=== PATIENT | female | born 1955 | race Caucasian/White ===

== ENCOUNTER 2016-05-01 13:22 | Outpatient (CLI) | payer OTHER ==
[~2016-05-01 13:22] MED LIST: /ESCI20TA PO; /MESA40TAB PO; ENTO3CAP5 PO; GEMF600T PO; HYDR7.5T30 PO; NEXI40GR PO; PRED20TA PO; SILV1CRE EX; VITA10002 PO; [UNRECOGNIZED DRUG - CODE] IM
[2016-05-01] MEDS ORDERED: diphenhydrAMINE 25 MG CAP PO ONE (13:45)
[2016-05-01] MEDS ORDERED: ACETAMINOPHEN TAB 650MG DOSE (2X325MG) PO ONE (13:45)
[2016-05-01] MEDS ORDERED: VEDOLIZUMAB 300 MG in NS 250 ML IV ONE (14:00)
== END 2016-05-01 15:15 | disposition home or self-care (01) ==
LOC: M INFU 13:22
PROVIDERS: ATTEND Internal Medicine Gastroenterology
DX: K50.80 Crohn's disease of both small and large intestine without complications (principal); Z88.8 Allergy status to other drugs, medicaments and biological substances; Z79.899 Other long term (current) drug therapy; Z79.891 Long term (current) use of opiate analgesic; Z79.52 Long term (current) use of systemic steroids
CPT/HCPCS: 96413; J3380

== ENCOUNTER 2016-06-06 11:20 | Inpatient (IN) | payer OTHER ==
[~2016-06-06] VITALS: Ht 162.6 cm; Wt 60.9 kg
[2016-06-06] MEDS ORDERED: ACETAMINOPHEN TAB 650MG DOSE (2X325MG) PO ONE (12:00)
--- NOTE | 2016-06-06 12:40 | REP ---
Chest one-view HISTORY: Sepsis Comparison: 01/19/2011 The lungs are clear. The heart is normal in size. The pulmonary vasculature is normal in appearance. Impression: No acute disease. Signed by Troy Valencia MD 06/06/2016 12:32 P
[2016-06-06 13:09] LABS: INR 1.11
[2016-06-06] MEDS ORDERED: METF500T PO (13:24)
[2016-06-06] MEDS ORDERED: SERT25TA PO (13:24)
[2016-06-06] MEDS ORDERED: OMEP40CA2 PO (13:24)
[2016-06-06] MEDS ORDERED: DRIS50002 PO (13:24)
[2016-06-06] MEDS ORDERED: ONDA1TAB15 PO (13:24)
[2016-06-06] MEDS ORDERED: FERR325T3 PO (13:24)
[2016-06-06 13:28] LABS: BASO % 0.1 % (0.0-1.0); EOS # 0.1 K/mm3 (0.0-0.50); EOS % 0.6 % (0.0-3.0); LARGE UNSTAINED CELL % 0.3 % (0.0-4.0); LYMPH # 0.2 K/mm3 (1.5-4.5); LYMPH % 1.6 % (24.0-44.0); MEAN CORPUSCULAR HEMOGLOBIN 34.7 pg (27.0-33.0); MEAN CORPUSCULAR HGB CONC 33.4 g/dl (32.0-36.5); MONO # 0.3 K/mm3 (0.0-0.8); MONO % 2.6 % (0.0-5.0); NEUTROPHILS # 11.9 K/mm3 (1.8-7.7); NEUTROPHILS % 94.8 % (36.0-66.0); PLATELET COUNT, AUTOMATED 474 k/mm3 (150-450); RED CELL DISTRIBUTION WIDTH 13.9 % (11.5-14.5); WHITE BLOOD COUNT 12.6 K/mm3 (4.0-10.0)
[2016-06-06 13:35] LABS: ALBUMIN 1.9 GM/DL (3.2-5.2); ALBUMIN/GLOBULIN RATIO 0.46 (1.00-1.93); ALKALINE PHOSPHATASE 165 U/L (45-117); ALT/SGPT 17 U/L (12-78); AMYLASE 22 U/L (25-115); ANION GAP 8 MEQ/L (8-16); AST/SGOT 18 U/L (15-37); BILIRUBIN,DIRECT 0.2 MG/DL (0.0-0.2); BILIRUBIN,TOTAL 0.7 MG/DL (0.2-1.0); BLOOD UREA NITROGEN 7 MG/DL (7-18); CALCIUM LEVEL 8.3 MG/DL (8.8-10.2); CARBON DIOXIDE LEVEL 29 MEQ/L (21-32); CHLORIDE LEVEL 99 MEQ/L (98-107); CREATININE FOR GFR 0.74 MG/DL (0.55-1.02); GLOMERULAR FILTRATION RATE > 60.0 (>45); GLUCOSE, FASTING 146 MG/DL (80-110); SODIUM LEVEL 136 MEQ/L (136-145)
[2016-06-06 13:44] LABS: POTASSIUM SERUM 2.9 MEQ/L (3.5-5.1)
--- NOTE | 2016-06-06 13:44 | REP ---
RIGHT KNEE SERIES: Four views of the right knee are performed. There is no fracture or dislocation. There is mild medial joint space narrowing. There is mild spurring of the femoral condyles. There is mild spurring of the superior pole of the patella with narrowing of the patellofemoral joint. I do not see a significant joint effusion. IMPRESSION: Degenerative changes without other significant finding. Signed by David Johnson MD 06/06/2016 05:06 P
[2016-06-06] MEDS ORDERED: CEFEPIME HCL 2 GM in D5W MINI-BAG PLUS 50 ML IV ONE (13:45)
[2016-06-06] MEDS ORDERED: POTASSIUM CHLORIDE 10 MEQ SR TABLET PO ONE (13:45)
[2016-06-06] MEDS ORDERED: ONDANSETRON 4MG/2ML VIAL (J2405) IV ONE ×2 (14:00→16:00)
[2016-06-06] MEDS ORDERED: CEFEPIME HCL 1 GM INJ (MAXIPIME) (J0692) As Ordered ONE ×2 (14:08→14:09)
[2016-06-06] MEDS ORDERED: ISOVUE-370 76% 100ML VIAL (Q9967) As Ordered ONE (14:20)
--- NOTE | 2016-06-06 15:56 | REP ---
CT ABDOMEN: HISTORY: Abdominal pain and pyrexia. History of Crohn's disease. COMPARISON: 11/24/2008, which is the only prior. CONTRAST UTILIZED: 100 mL 370. There are chronic changes in the lung bases, status quo. There are no pleural or pericardial effusions. There is an air fluid level in the esophagus. A round density is also seen at the gastroesophageal junction likely some ingested material. The gallbladder is markedly enlarged and there is cholelithiasis. Cholelithiasis was present on the prior examination, however, it has increased. There is no evidence of abnormal gallbladder wall thickening or armida evidence of pericholecystic edema. The liver and spleen are essentially unchanged. The pancreas, adrenal glands and kidneys are unchanged. The abdominal aorta and periaortic regions were unchanged. There is a segment of transverse colon which has abnormally thickened de león, is narrow and is seen in association with fatty infiltration on both mesenteric and antimesenteric sides. This was seen on the prior exam and the appearance of this is essentially stable. There is no armida evidence of intestinal obstruction. There is no evidence of free fluid or free air in the abdomen. The abdominal aorta and periaortic regions are essentially unchanged from the prior exam. CT PELVIS: There is perirectal and perisigmoidal fatty infiltration with evidence of abnormal thickening of the de león of the rectum and rectosigmoid region. This represents a change from the prior exam. There is no definite evidence of free fluid or free air in the pelvis. There is no evidence of a pelvic mass or adenopathy. There is no significant change in the appearance of the osseous structures. IMPRESSION: 1. Persistent loop of bowel in the abdomen with thickened de león and mild fatty infiltration. The patient does have a history of previous bowel surgery and this could be a point of anastomosis rather than acute disease. I will reiterate it has a similar appearance to the prior examination. 2. Diffuse findings in the pelvis involving the rectum and rectosigmoid region as described above consistent with acute inflammation. This needs to be correlated clinically without appropriate followup. 3. Hydropic gallbladder with cholelithiasis as described above. 4. Esophageal air fluid level which needs to be correlated clinically as described above. 5. Other findings as described above. Signed by Tristan Cevallos DO 06/06/2016 04:19 P
[2016-06-06] MEDS ORDERED: NS 1,000 ML IV ONE (16:00)
--- NOTE | 2016-06-06 16:16 | REP ---
CT ANGIO CHEST: HISTORY: Dyspnea. Possible pulmonary embolus. COMPARISON: None. CONTRAST UTILIZED: 100 mL Isovue-370. There is excellent visualization of the pulmonary arterial vasculature seen only in one right mid lung zone pulmonary arterial. There is a linear area of decreased density likely artifactual. No definite abnormal focal areas of decreased density are present that would be considered consistent with pulmonary emboli. There are no pleural or pericardial effusions. There is no mediastinal or hilar adenopathy. Evaluation of the lung navarro show a few patchy and curvilinear opacities in the lung bases consistent with chronic lung base changes which appear unchanged from the prior lung base images obtained during abdominal and pelvic CT scanning 11/24/2008. IMPRESSION: 1. No evidence of a pulmonary embolus. 2. Chronic lung base changes. 3. No evidence of an aortic abnormality. 4. Other findings as described above. Signed by Tristan Cevallos DO 06/06/2016 04:20 P
--- NOTE | 2016-06-06 17:01 | REP ---
GALLBLADDER ULTRASOUND: 06/06/2016. Comparison: CT abdomen and pelvis 06/06/2016. Clinical history: Right upper quadrant abdominal pain, distended gallbladder with calcified stones. Findings: Sonographic evaluation of the right upper quadrant shows the liver with fatty infiltration and dilatation. The gallbladder is distended with hydrops of the gallbladder which is at least 13 cm long. Wall is thickened up to 3.4 mm. There is some sludge and echogenic stones in the dependent gallbladder. Both of these are mobile. I do not see pericholecystic fluid. Despite the distension and wall thickening, there is no definite sonographic Benjamin's sign. Common duct is not dilated at 11.5 mm. I do not see a definite stone on the visualized portion of this duct on ultrasound nor was there any visible calcified stone by CT earlier this date in the gallbladder or duct. The pancreas is limited in evaluation due to gas shadowing. The right kidney is 10.8 x 5 x 3.8 cm without hydronephrosis or stone. That portion of pancreatic head did not show a dilated common bile duct or other significant finding. Impression: 1. Hydrops of the gallbladder which is 13 cm long with thickened wall up to 3.4 mm with stones and sludge (which are both mobile), but without a sonographic Benjamin's sign or pericholecystic fluid. Although the duct is enlarged, there is no dilatation of the intrapancreatic ducts. Fatty liver change noted. 2. Common duct 11.5 mm, but no visible filling defect in that portion of the duct seen 3. There is no generalized ascites. The pancreas shows limited portion due to gas shadowing without finding. Right kidney is unremarkable. Signed by Magdaleno Rangel MD 06/07/2016 09:13 A
--- NOTE | 2016-06-06 17:03 | REP ---
CT HEAD WITHOUT CONTRAST: HISTORY: Fall. Areas of decreased attenuation are present in the frontal lobes. There is dilatation of the overlying cortical sulci. This represents encephalomalacia. Areas of decreased attenuation are present in the periventricular white matter. This represents small vessel ischemic disease. There is no intraparenchymal hemorrhage, mass or midline shift. The ventricular system and cortical sulci are dilated consistent with mild volume loss. There is no extracerebral collection. There is no fracture. The visualized sinuses are clear. IMPRESSION: 1. Bilateral frontal lobe encephalomalacia. 2. Small vessel ischemic disease. 3. Mild volume loss. Signed by Troy Valencia MD 06/06/2016 05:06 P
[2016-06-06] MEDS ORDERED: ONDANSETRON 4MG/2ML VIAL (J2405) IV PRN (18:30)
[2016-06-06] MEDS ORDERED: ACETAMINOPHEN TAB 650MG DOSE (2X325MG) PO PRN (18:30)
--- NOTE | 2016-06-06 19:20 | HPE ---
DATE OF ADMISSION: 06/06/2015 PRIMARY CARE PROVIDER: Ms. Sousa is a patient of Zay Morin and Dr. Lemus. CHIEF COMPLAINT: Apparently knee pain, although during my evaluation, she is unable to tell me why she came to the emergency department. HISTORY OF PRESENT ILLNESS: The patient apparently suffered a fall at home, experienced right-sided knee pain. She lives alone. She has a history of traumatic brain injury so she is a relatively poor historian. Was found to be febrile in the emergency department and she was unaware that she was febrile. She describes no cough or blood pressure. She is experiencing abdominal pain and has been having some loose stools, although she says she always has loose stools. Follows with Dr. Lemus for Crohn's disease, although she is unsure what medication she takes for Crohn's, although she says she uses [facility]. PAST MEDICAL HISTORY: Is obtained from the medical record for bowel resection and hysterectomy. Past medical history is notable for Crohn's. Medication list would suggest that she has diabetes and perhaps gastroesophageal reflux disease (GERD). SOCIAL HISTORY: Previous records indicate she is a nonsmoker. FAMILY HISTORY: Notable for a brother with Crohn's and a father with ulcerative colitis. ALLERGIES: She has listed allergies to INFLIXIMAB, LACTOSE, MORPHINE, NIZATIDINE. MEDICATIONS AT HOME: Notable for: - metformin 500 mg twice a day with meals - Zofran as needed for nausea - vitamin D 50,000 units weekly - ferrous sulfate 325 mg twice a day - omeprazole 40 mg daily - sertraline 25 mg daily REVIEW OF SYSTEMS: Is not meaningfully obtainable in this patient. PHYSICAL EXAMINATION: VITAL SIGNS: Temperature upon arrival was 103.9, most recently 98.5, pulse 100, blood pressure 137/80, 100% on room air, respiratory rate 18. GENERAL: She is awake, appears somewhat uncomfortable but appropriately interactive and following commands. Knows she is in the hospital. Does not know particularly why she is here. HEENT: Head is normocephalic. Sinuses are nontender. Pupils equal, round, and reactive. Anicteric. Nasal septum is midline. Mucous membranes are moist. NECK: Supple. LUNGS: Breathing is symmetrical, somewhat diminished throughout. I to E ratio is 1:3. HEART: Distant sounding normal S1, S2. Radial pulses are 2+. Capillary refill is less than two seconds. ABDOMEN: Flat with hypoactive bowel sounds, with right upper and lower quadrant tenderness without rebound or guarding. No fluid wave. EXTREMITIES: No lower extremity edema. She does have some cheilosis at the margins of her lips. Right knee is nontender, nonerythematous. There is no fluid. There is no warmth. LABORATORY DATA: White cell count 12.6, hemoglobin 11.7, platelets 474. INR is 1.11. Potassium is 2.9. Creatinine 0.74. Lactic acid was initially 3, repeat at 1.5. Calcium 8.3. Alkaline phosphatase 165. C-reactive protein 2.7. Total protein 6, albumin 1.9, amylase 22. MICROBIOLOGY: UA is remarkably unremarkable. Blood culture pending. Urine culture pending. Influenza swab is negative. IMAGING: Head CT showed bilateral frontal lobe encephalomalacia. Small vessel ischemic disease. Mild volume loss. Gallbladder ultrasound shows common bile duct at 11.5 mm. Hydrops of the gallbladder 13 cm long with thickened wall without fluid around the gallbladder. CT abdomen shows persistent loop of bowel in the abdomen with thickened wall and mild fatty infiltration. Diffuse findings in the pelvis including the rectum and rectosigmoid area consistent with acute inflammation, hydropic gallbladder with cholelithiasis. A round density at the GE junction. Knee x-ray does not show any evidence of fracture. CT chest shows no evidence of pulmonary embolism or infiltrate. ASSESSMENT: This is a 60-year-old with Crohn's disease who presents with fever and abdominal pain. The patient will require a two-midnight hospital stay for further workup. PLAN: 1. Gastrointestinal (GI). The patient has been started on empiric antibiotics. Does not have an acutely surgical abdomen. We will monitor clinically. I have asked for a GI consult. I have elected not to start steroids, but will defer to Dr. Lemus for further care. I have also ordered a GI panel for the possibility of infectious diarrhea, which has been quite prominent in the community. 2. The patient may have a history of diabetes. We will follow fingersticks, monitor clinically. Ask for old records from Zay Morin's office. 3. The patient has anemia and leukocytosis. This is mostly likely related to acute illness. We will monitor with laboratories in the morning. 4. The patient has hypokalemia, which will be repleted. We will also check a magnesium level. 5. The patient has resolved lactic acidosis. 6. Deep venous thrombosis (DVT) prophylaxis has been ordered. 7. The patient has a history of traumatic brain injury and is a relatively poor historian. Old records will be important in her care, as well as consulting physician who has known her for many years. 8. The patient will be signed out to Dr. Yadav in the morning.
[2016-06-06 21:18] VITALS: BP 136/74
[2016-06-06] MEDS: CIPROFLOXACIN 400 MG in APPROPRIATE DILUENT 1 EA IV SCH (21:45)
[2016-06-06] MEDS: NS 1,000 ML IV SCH (21:45)
[2016-06-06] MEDS: FERROUS SULFATE 325MG TAB PO SCH (21:46)
[2016-06-06] MEDS: HEPARIN SOD (PORCINE) 5000 UNITS/ML VIAL SC SCH (21:46)
[2016-06-06] MEDS: metroNIDAZOLE 500 MG in APPROPRIATE DILUENT 1 EA IV SCH (22:49)
[2016-06-06 22:58] LABS: ALBUMIN 1.7 GM/DL (3.2-5.2); ALBUMIN/GLOBULIN RATIO 0.45 (1.00-1.93); ALKALINE PHOSPHATASE 144 U/L (45-117); ALT/SGPT 18 U/L (12-78); ANION GAP 8 MEQ/L (8-16); AST/SGOT 23 U/L (15-37); BILIRUBIN,TOTAL 0.8 MG/DL (0.2-1.0); BLOOD UREA NITROGEN 7 MG/DL (7-18); CALCIUM LEVEL 7.7 MG/DL (8.8-10.2); CARBON DIOXIDE LEVEL 28 MEQ/L (21-32); CHLORIDE LEVEL 101 MEQ/L (98-107); CREATININE FOR GFR 0.66 MG/DL (0.55-1.02); GLOMERULAR FILTRATION RATE > 60.0 (>45); GLUCOSE, FASTING 147 MG/DL (80-110); MAGNESIUM LEVEL 1.4 MG/DL (1.8-2.4); POTASSIUM SERUM 3.6 MEQ/L (3.5-5.1); SODIUM LEVEL 137 MEQ/L (136-145); TOTAL PROTEIN 5.5 GM/DL (6.4-8.2)
[2016-06-06] MEDS ORDERED: MAG SULF 1GM/100ML (MAG RUN) 1 GM in APPROPRIATE DILUENT 1 EA IV ONE (23:45)
[2016-06-07] VITALS: BP 101/58
[2016-06-07 04:00] VITALS: BP 108/52
[2016-06-07] MEDS: metroNIDAZOLE 500 MG in APPROPRIATE DILUENT 1 EA IV SCH ×3 (05:44→21:38)
[2016-06-07 05:50] LABS: BASO % 0.2 % (0.0-1.0); EOS % 0.2 % (0.0-3.0); LARGE UNSTAINED CELL # 0.1 K/mm3 (0.0-0.4); LARGE UNSTAINED CELL % 1.6 % (0.0-4.0); LYMPH # 0.5 K/mm3 (1.5-4.5); LYMPH % 7.9 % (24.0-44.0); MEAN CORPUSCULAR HEMOGLOBIN 34.5 pg (27.0-33.0); MEAN CORPUSCULAR VOLUME 104.5 fl (80.0-96.0); MONO # 0.4 K/mm3 (0.0-0.8); MONO % 5.5 % (0.0-5.0); NEUTROPHILS # 5.4 K/mm3 (1.8-7.7); NEUTROPHILS % 84.6 % (36.0-66.0); PLATELET COUNT, AUTOMATED 448 k/mm3 (150-450); RED CELL DISTRIBUTION WIDTH 13.9 % (11.5-14.5); WHITE BLOOD COUNT 6.3 K/mm3 (4.0-10.0)
[2016-06-07 06:06] LABS: ALBUMIN 1.6 GM/DL (3.2-5.2); ALBUMIN/GLOBULIN RATIO 0.41 (1.00-1.93); ALKALINE PHOSPHATASE 142 U/L (45-117); ALT/SGPT 18 U/L (12-78); ANION GAP 9 MEQ/L (8-16); AST/SGOT 29 U/L (15-37); BILIRUBIN,TOTAL 0.7 MG/DL (0.2-1.0); BLOOD UREA NITROGEN 7 MG/DL (7-18); CALCIUM LEVEL 7.7 MG/DL (8.8-10.2); CARBON DIOXIDE LEVEL 28 MEQ/L (21-32); CHLORIDE LEVEL 102 MEQ/L (98-107); CREATININE FOR GFR 0.71 MG/DL (0.55-1.02); GLOMERULAR FILTRATION RATE > 60.0 (>45); GLUCOSE, FASTING 102 MG/DL (80-110); MAGNESIUM LEVEL 2.2 MG/DL (1.8-2.4); POTASSIUM SERUM 3.2 MEQ/L (3.5-5.1); SODIUM LEVEL 139 MEQ/L (136-145); TOTAL PROTEIN 5.5 GM/DL (6.4-8.2)
[2016-06-07 08:00] VITALS: BP 104/61
[2016-06-07] MEDS: CIPROFLOXACIN 400 MG in APPROPRIATE DILUENT 1 EA IV SCH ×2 (08:14→20:09)
[2016-06-07] MEDS: OMEPRAZOLE 20 MG CAP PO SCH (08:14)
[2016-06-07] MEDS: FERROUS SULFATE 325MG TAB PO SCH ×2 (08:14→20:10)
[2016-06-07] MEDS: SERTRALINE HCL 25 MG TABLET PO SCH (08:14)
[2016-06-07] MEDS: HEPARIN SOD (PORCINE) 5000 UNITS/ML VIAL SC SCH ×2 (08:14→20:10)
[2016-06-07] MEDS ORDERED: POTASSIUM CHLORIDE 10 MEQ SR TABLET PO ONE (09:45)
--- NOTE | 2016-06-07 10:33 | ECGEPIP ---
Stationary ECG Study [facility] - ED Test Date: 2016-06-06 Pat Name: EDEN HAYNES Department: Room: - Gender: F [employer]: nallely : 1955 Requested By: Octavia Carlton Order Number: [id number] Reading MD: Nick Gutiérrez Measurements Intervals [place] Rate: 119 P: 26 ND: 100 QRS: 10 QRSD: 90 T: 76 QT: 285 QTc: 402 Interpretive Statements SINUS TACHYCARDIA WITH SHORT ND INTERVAL POSSIBLE LAE NONSPECIFIC ST & T-WAVE ABNORMALITY NO PRIORS Electronically Signed On 06-07-2016 10:32:57 EST by Nick Gutirérez
[2016-06-07] MEDS: NS 1,000 ML IV SCH (11:00)
[2016-06-07] MEDS: methylPREDNISolone INJ 40 MG/1 ML VIAL (J2920) IV SCH ×2 (13:44→21:38)
--- NOTE | 2016-06-07 15:09 | IPN ---
DATE: 06/07/2016 60-year-old female seen at bedside. No overnight issues reported. Admitted last evening for abdominal discomfort and loose stool. Dr. Lemus has seen the patient this afternoon and felt that this was an exacerbation of her Crohn's disease, which I did discuss with her son. We will start medications per Dr. Lemus's recommendations. OBJECTIVE: Temperature is 96.7, pulse 110, respiratory rate 18, blood pressure 104/61, SpO2 is 96% on room air. GENERAL: The patient appears to be in no acute distress. Is alert, oriented. HEENT: Unremarkable. LUNGS: Clear. HEART: Regular rhythm. ABDOMEN: Soft with vague tenderness in the right to mid abdomen. EXTREMITIES: No edema. No calf tenderness. LABORATORY DATA: White count is 6.3, down from 12.6, hemoglobin is 11.5, platelets are 448,000. Sodium 139, potassium 3.2, which we will supplement. Chloride 102, bicarbonate 28, anion gap 9, BUN 7, creatinine 0.71, glucose 102, hemoglobin A1c 5.1, magnesium 2.2, AST 29, ALT 18, alkaline phosphatase 142, lipase 45, GI panel was negative. Blood cultures negative. Influenza A and B are negative. ASSESSMENT AND PLAN: 1. Abdominal pain with Crohn's exacerbation. Continue on Cipro, Flagyl, Asacol and Solu-Medrol per Dr. Lemus's recommendations. She likely will need outpatient followup and may need to be considered for restart of immunosuppressive therapy for Crohn's. 2. History of diabetes. Continue fingersticks before food and nightly. Sliding scale coverage. Consistent carbohydrate diet. 3. Anemia with leukocytosis likely related to acute illnesses. This does appear to be improving. We will continue to follow. 4. Hypokalemia. We will replete. 5. Resolved lactic acidosis. 6. Deep vein thrombosis (DVT) prophylaxis is on board. 7. History of traumatic brain injury, relatively poor historian. Did have an opportunity to discuss the case with the patient's son Denver by phone and he is agreeable with current treatment plan. DISPOSITION: Anticipate the patient to be here greater than two midnights.
[2016-06-07 15:55] VITALS: BP 124/67
[2016-06-07] MEDS: MESALAMINE 400 MG CAPSULE DELAYED RELEASE (DELZICOL) PO SCH ×2 (18:07→20:09)
[2016-06-07 22:00] VITALS: BP 115/58
[2016-06-08] MEDS: methylPREDNISolone INJ 40 MG/1 ML VIAL (J2920) IV SCH ×3 (05:20→14:49)
[2016-06-08] MEDS: metroNIDAZOLE 500 MG in APPROPRIATE DILUENT 1 EA IV SCH ×3 (05:21→14:49)
[2016-06-08 06:00] VITALS: BP 129/67
[2016-06-08 06:48] LABS: BASO % 0.1 % (0.0-1.0); EOS % 0.5 % (0.0-3.0); LARGE UNSTAINED CELL # 0.1 K/mm3 (0.0-0.4); LARGE UNSTAINED CELL % 2.4 % (0.0-4.0); LYMPH # 0.7 K/mm3 (1.5-4.5); LYMPH % 15.4 % (24.0-44.0); MEAN CORPUSCULAR HEMOGLOBIN 34.4 pg (27.0-33.0); MEAN CORPUSCULAR HGB CONC 33.3 g/dl (32.0-36.5); MEAN CORPUSCULAR VOLUME 103.1 fl (80.0-96.0); MONO # 0.3 K/mm3 (0.0-0.8); MONO % 6.8 % (0.0-5.0); NEUTROPHILS # 3.1 K/mm3 (1.8-7.7); NEUTROPHILS % 74.8 % (36.0-66.0); PLATELET COUNT, AUTOMATED 391 k/mm3 (150-450); RED CELL DISTRIBUTION WIDTH 13.5 % (11.5-14.5); WHITE BLOOD COUNT 4.2 K/mm3 (4.0-10.0)
[2016-06-08 07:00] LABS: ALBUMIN 1.6 GM/DL (3.2-5.2); ALBUMIN/GLOBULIN RATIO 0.43 (1.00-1.93); ALKALINE PHOSPHATASE 121 U/L (45-117); ALT/SGPT 22 U/L (12-78); ANION GAP 8 MEQ/L (8-16); AST/SGOT 32 U/L (15-37); BILIRUBIN,TOTAL 0.4 MG/DL (0.2-1.0); BLOOD UREA NITROGEN 6 MG/DL (7-18); CALCIUM LEVEL 7.6 MG/DL (8.8-10.2); CARBON DIOXIDE LEVEL 27 MEQ/L (21-32); CHLORIDE LEVEL 106 MEQ/L (98-107); CREATININE FOR GFR 0.53 MG/DL (0.55-1.02); GLOMERULAR FILTRATION RATE > 60.0 (>45); GLUCOSE, FASTING 131 MG/DL (80-110); MAGNESIUM LEVEL 2.1 MG/DL (1.8-2.4); POTASSIUM SERUM 3.2 MEQ/L (3.5-5.1); SODIUM LEVEL 141 MEQ/L (136-145); TOTAL PROTEIN 5.3 GM/DL (6.4-8.2)
[2016-06-08] MEDS: OMEPRAZOLE 20 MG CAP PO SCH (09:40)
[2016-06-08] MEDS: SERTRALINE HCL 25 MG TABLET PO SCH (09:40)
[2016-06-08] MEDS: CIPROFLOXACIN 400 MG in APPROPRIATE DILUENT 1 EA IV SCH (09:40)
[2016-06-08] MEDS: FERROUS SULFATE 325MG TAB PO SCH ×2 (09:41→21:18)
[2016-06-08] MEDS: MESALAMINE 400 MG CAPSULE DELAYED RELEASE (DELZICOL) PO SCH ×3 (09:41→21:18)
[2016-06-08] MEDS: HEPARIN SOD (PORCINE) 5000 UNITS/ML VIAL SC SCH ×2 (09:42→21:19)
[2016-06-08] MEDS ORDERED: POTASSIUM CHLORIDE 10 MEQ SR TABLET PO ONE (11:00)
[2016-06-08 11:32] LABS: FOLATE 12.3 NG/ML (>5.4)
[2016-06-08] MEDS: EUCERIN 120GM CREAM TOP SCH ×2 (11:53→21:18)
[2016-06-08 14:00] VITALS: BP 131/76
--- NOTE | 2016-06-08 14:03 | IPN ---
DATE: 06/08/2016 60-year-old female seen at bedside. No overnight issues reported. Resting comfortably. She denies fevers, chills, nausea or vomiting. She feels that her abdominal pain is much improved today. OBJECTIVE: Temperature 96.8, pulse 86, respiratory rate 18, blood pressure 129/67, SpO2 91% on room air. General: The patient appears to be in no acute distress. He is alert, oriented. HEENT: He does have some erythema around the lower folds of the mouth. Throat is clear. Lungs clear. Heart: Regular rate and rhythm. Abdomen: Soft. Extremities: No edema. No calf tenderness. LABS: White count 4.2, hemoglobin 10.9 and platelets are 391,000. Sodium 141, potassium 3.2, chloride 106, bicarbonate 27, anion gap 8, BUN 6, creatinine 0.53, glucose 131. Magnesium 2.1. Total bilirubin 0.4. AST 32. ALT 22. Alkaline phosphatase 121. Albumin 1.6. B12 level is 229. Folate is 2.3. Zinc level is pending at this time. ASSESSMENT AND PLAN: 1. Abdominal pain with Crohn's exacerbation. Continue on Cipro, Flagyl, Asacol, and Solu-Medrol per Dr. Lemus's recommendations. Will likely need outpatient followup and possibly restart of immunosuppressive therapy. 2. Rash on face. Likely from poor nutrition. 3. Vitamin B12 deficiency. Will check a zinc level on her as well and start on oral B12. 4. Diabetes. Continue consistent carbohydrate diet. Fingersticks before meals and at bedtime, sliding scale coverage. 5. Anemia with leukocytosis related to acute illness. Has been improving and back to normal. 6. Hypokalemia, will replete. 7. Resolved lactic acidosis. 8. Deep vein thrombosis (DVT) prophylaxis is on board. 9. History of traumatic brain injury. Stable. DISPOSITION: Anticipate discharge home tomorrow.
[2016-06-08] MEDS: metroNIDAZOLE (FLAGYL) 500 MG TAB PO SCH ×2 (14:56→21:18)
[2016-06-08] MEDS: CIPROFLOXACIN 500 MG TAB PO SCH (17:18)
[2016-06-08 20:15] VITALS: BP 124/74
[2016-06-09 05:05] VITALS: BP 121/69
[2016-06-09] MEDS: metroNIDAZOLE (FLAGYL) 500 MG TAB PO SCH (05:12)
[2016-06-09] MEDS: CIPROFLOXACIN 500 MG TAB PO SCH (05:12)
[2016-06-09 06:50] LABS: ALBUMIN 1.7 GM/DL (3.2-5.2); ALBUMIN/GLOBULIN RATIO 0.49 (1.00-1.93); ALKALINE PHOSPHATASE 150 U/L (45-117); ALT/SGPT 25 U/L (12-78); ANION GAP 6 MEQ/L (8-16); AST/SGOT 24 U/L (15-37); BILIRUBIN,TOTAL 0.4 MG/DL (0.2-1.0); BLOOD UREA NITROGEN 9 MG/DL (7-18); CALCIUM LEVEL 7.7 MG/DL (8.8-10.2); CARBON DIOXIDE LEVEL 28 MEQ/L (21-32); CHLORIDE LEVEL 108 MEQ/L (98-107); CREATININE FOR GFR 0.53 MG/DL (0.55-1.02); GLOMERULAR FILTRATION RATE > 60.0 (>45); GLUCOSE, FASTING 112 MG/DL (80-110); MAGNESIUM LEVEL 1.9 MG/DL (1.8-2.4); POTASSIUM SERUM 3.1 MEQ/L (3.5-5.1); SODIUM LEVEL 142 MEQ/L (136-145); TOTAL PROTEIN 5.2 GM/DL (6.4-8.2)
[2016-06-09 07:17] LABS: EOS % 1.3 % (0.0-3.0); LARGE UNSTAINED CELL # 0.2 K/mm3 (0.0-0.4); LARGE UNSTAINED CELL % 3.5 % (0.0-4.0); LYMPH # 0.9 K/mm3 (1.5-4.5); LYMPH % 21.1 % (24.0-44.0); MEAN CORPUSCULAR HGB CONC 32.6 g/dl (32.0-36.5); MEAN CORPUSCULAR VOLUME 104.2 fl (80.0-96.0); MONO # 0.3 K/mm3 (0.0-0.8); MONO % 6.3 % (0.0-5.0); NEUTROPHILS # 2.8 K/mm3 (1.8-7.7); NEUTROPHILS % 67.7 % (36.0-66.0); PLATELET COUNT, AUTOMATED 394 k/mm3 (150-450); RED CELL DISTRIBUTION WIDTH 13.3 % (11.5-14.5); WHITE BLOOD COUNT 4.2 K/mm3 (4.0-10.0)
[2016-06-09] MEDS ORDERED: POTASSIUM CHLORIDE 10 MEQ SR TABLET PO ONE (07:45)
[2016-06-09] MEDS ORDERED: FLAG500T PO (07:57)
[2016-06-09] MEDS ORDERED: DELZ400C PO (07:57)
[2016-06-09] MEDS ORDERED: CIPR500T89 PO (07:57)
[2016-06-09] MEDS ORDERED: POTA20TA4 PO (07:59)
[2016-06-09] MEDS: MESALAMINE 400 MG CAPSULE DELAYED RELEASE (DELZICOL) PO SCH (08:40)
[2016-06-09] MEDS: SERTRALINE HCL 25 MG TABLET PO SCH (08:40)
[2016-06-09] MEDS: OMEPRAZOLE 20 MG CAP PO SCH (08:40)
[2016-06-09] MEDS: HEPARIN SOD (PORCINE) 5000 UNITS/ML VIAL SC SCH (08:41)
[2016-06-09] MEDS: FERROUS SULFATE 325MG TAB PO SCH (08:41)
[2016-06-09] MEDS: EUCERIN 120GM CREAM TOP SCH (08:41)
[2016-06-09] MEDS ORDERED: predniSONE 20 MG TAB PO SCH (09:00)
--- NOTE | 2016-06-09 09:21 | DSES ---
DATE OF ADMISSION: 06/06/2016 DATE OF DISCHARGE: 06/09/2016 PRIMARY CARE PROVIDER: Zay Morin. CONSULTANTS: Dr. Lemus. PROCEDURES PERFORMED: None. COMPLICATIONS: None. ADMISSION/DISCHARGE DIAGNOSES: 1. Acute abdominal pain with exacerbation of inflammatory bowel/Crohn's disease. 2. Hypokalemia. 3. Diabetes. 4. Iron-deficiency. 5. Gastroesophageal reflux disease. 6. Depression. BRIEF HOSPITAL COURSE: Ms. Sousa is a pleasant, 60-year-old female who presented to the emergency department on 06/06/2015. She had initially complained of some knee pain when she came to the emergency department and then subsequently complained of having right sided abdominal pain which radiated to the epigastric and into her back. She had been having a lot of loose bowel movements, but no hematochezia or melena. On further workup in the emergency department, she did have a mild increasing leukocytosis with a white count 12.6. Urinalysis was unremarkable. Blood cultures remained negative. However, her CT of the abdomen and pelvis did show thickened wall, bowel loop and mild fatty infiltrate suggesting acute inflammation. She did have some noted cholelithiasis. Her x-ray of the knee did not demonstrate any fracture. Additionally, she had a CT angio of the chest which was negative for pulmonary embolism (PE), no infiltrate. She additionally had a head CT that did show frontal lobe encephalomalacia, small vessel ischemic disease and mild volume loss. She does have an underlying history of head trauma with traumatic brain injury which is longstanding. On additional labs, her lactic acid was initially 3 and repeat after a fluid bolus was 1.5. C-reactive protein 2.7, albumin 1.9 and amylase 22. She was admitted for IV fluids and started on IV Cipro and Flagyl. Dr. Lemus was consulted. He did feel that this was an exacerbation of her Crohn's disease. We did make some changes in her medications and she may need to resume immunomodulating medication in the near future, which we will defer to Dr. Lemus in followup as an outpatient. For further information regarding intake physical, labs, and diagnostics, please refer to the history and physical (H and P) by Dr. Claudio. PHYSICAL EXAMINATION: Today, temperature is 97, pulse 74, respiratory rate 18, blood pressure (BP) 121/69, and SPO2 is 95% on room air. General: The patient appears to be in no acute distress. Is alert, oriented. HEENT: Unremarkable. Lungs: Clear. Heart: Regular rate and rhythm. Abdomen: Soft. Extremities: No edema. No calf tenderness. LABS: White count is 4.2, hemoglobin 10.6 and platelets are 394,000. Sodium 142, potassium 3.1 - which we will supplement, chloride 108, bicarb 28, anion gap 6, BUN 9, creatinine 0.53, glucose 112, magnesium 1.9, total bilirubin 0.4, AST 24, ALT 25, alkaline phosphatase 150, CRP is 2.96, albumin 1.7. DISCHARGE CONDITION: Good. DISPOSITION: Discharge to home. DISCHARGE MEDICATIONS: - Cipro 500 mg twice a day for seven more days - mesalamine 800 mg three times a day - potassium chloride 20 mEq by mouth to be taken on a daily basis, she was given a 40 mg tab times one prior to discharge - ferrous sulfate 325 mg twice a day - metformin 500 mg twice a day - omeprazole 40 mg daily - Zofran 4 mg every 4 hours as needed nausea - Zoloft 25 mg daily - vitamin D 50,000 units weekly DISCHARGE INSTRUCTIONS: Discharge to home. Followup with Zay Morin in a week and followup with Dr. Lemus in 1-2 weeks. Activity as tolerated. Consistent carb diet. Encouraged to seek medical attention if her symptoms should worsen or progress. She voices understanding. The discharge took approximately 35 minutes. NILS
== END 2016-06-09 10:25 | disposition home or self-care (01) | DRG 387 ==
LOC: EDBD 11:20 → EDUNIT# 11:20 → M ED 11:43 → M ED INP 18:26 → M PCU 20:48 → M MSPAV 06-07 15:51
PROVIDERS: ADMIT Internal Medicine; ATTEND Hospitalist
DX: K50.90 Crohn's disease, unspecified, without complications (principal); E87.6 Hypokalemia; E11.9 Type 2 diabetes mellitus without complications; D72.829 Elevated white blood cell count, unspecified; D50.9 Iron deficiency anemia, unspecified; K80.20 Calculus of gallbladder without cholecystitis without obstruction; K21.9 Gastro-esophageal reflux disease without esophagitis; F32.9 Major depressive disorder, single episode, unspecified; Z79.84 Long term (current) use of oral hypoglycemic drugs; Z79.899 Other long term (current) drug therapy; Z87.820 Personal history of traumatic brain injury; Z83.79 Family history of other diseases of the digestive system; Z88.5 Allergy status to narcotic agent; Z88.8 Allergy status to other drugs, medicaments and biological substances; D53.8 Other specified nutritional anemias; Z91.14 Patient's other noncompliance with medication regimen

== ENCOUNTER 2016-06-29 13:56 | Outpatient (CLI) | payer OTHER ==
[~2016-06-29] VITALS: Ht 162.6 cm; Wt 75.0 kg
[~2016-06-29 13:56] MED LIST changes: +CIPR500T89 PO; +DELZ400C PO; +DRIS50002 PO; +FERR325T3 PO; +FLAG500T PO; +METF500T PO; +OMEP40CA2 PO; +ONDA1TAB15 PO; +POTA20TA4 PO; +SERT25TA PO
[2016-06-29] MEDS ORDERED: diphenhydrAMINE 25 MG CAP PO ONE (14:15)
[2016-06-29] MEDS ORDERED: ACETAMINOPHEN TAB 650MG DOSE (2X325MG) PO ONE (14:15)
[2016-06-29] MEDS ORDERED: VEDOLIZUMAB 300 MG in NS 250 ML IV ONE (14:15)
== END 2016-06-29 15:30 | disposition home or self-care (01) ==
LOC: M INFU 13:56
PROVIDERS: ATTEND Internal Medicine Gastroenterology
DX: K50.00 Crohn's disease of small intestine without complications (principal); K50.10 Crohn's disease of large intestine without complications; Z79.899 Other long term (current) drug therapy; Z79.52 Long term (current) use of systemic steroids; Z88.8 Allergy status to other drugs, medicaments and biological substances; Z88.5 Allergy status to narcotic agent
CPT/HCPCS: 96413; J3380

== ENCOUNTER → 2016-07-25 | Outpatient (CLI) | payer OTHER ==
[2016-07-25 12:00] LABS: ALBUMIN 3.1 GM/DL (3.2-5.2); ALBUMIN/GLOBULIN RATIO 0.86 (1.00-1.93); ALKALINE PHOSPHATASE 141 U/L (45-117); ALT/SGPT 23 U/L (12-78); ANION GAP 8 MEQ/L (8-16); AST/SGOT 22 U/L (15-37); BILIRUBIN,TOTAL 0.4 MG/DL (0.2-1.0); BLOOD UREA NITROGEN 14 MG/DL (7-18); CALCIUM LEVEL 9.4 MG/DL (8.8-10.2); CARBON DIOXIDE LEVEL 30 MEQ/L (21-32); CHLORIDE LEVEL 103 MEQ/L (98-107); CHOLESTEROL LEVEL 214 MG/DL (<200); CREATININE FOR GFR 0.51 MG/DL (0.55-1.02); GLOMERULAR FILTRATION RATE > 60.0 (>45); GLUCOSE, FASTING 123 MG/DL (80-110); POTASSIUM SERUM 4.1 MEQ/L (3.5-5.1); SODIUM LEVEL 141 MEQ/L (136-145); TOTAL PROTEIN 6.7 GM/DL (6.4-8.2); TRIGLYCERIDES LEVEL 234 MG/DL (<150)
== END ==
LOC: M LAB 10:15
PROVIDERS: ATTEND Nurse Practitioner Family
DX: E55.9 Vitamin D deficiency, unspecified (principal); E78.5 Hyperlipidemia, unspecified; D50.9 Iron deficiency anemia, unspecified

== ENCOUNTER → 2016-07-25 | Outpatient (CLI) | payer OTHER ==
[~2016-07-25] MED LIST changes: +E-Z PAQUE 60% w/v SUSP 355ML BOTTLE As Ordered ONE; +E-Z-GAS II EFFERVESCENT PACKET (SODIUM BICARB./CITRIC ACID/SIMETHICONE) As Ordered ONE; +E-Z-HD 98% w/w 340GM SUSP BTL As Ordered ONE
== END ==
LOC: M RAD 10:45
PROVIDERS: ATTEND Internal Medicine Gastroenterology
DX: K52.9 Noninfective gastroenteritis and colitis, unspecified (principal); Z53.8 Procedure and treatment not carried out for other reasons

== ENCOUNTER → 2016-08-04 | Outpatient (CLI) | payer OTHER ==
[~2016-08-04] MED LIST changes: -E-Z PAQUE 60% w/v SUSP 355ML BOTTLE As Ordered ONE; +E-Z-PAQUE 96% w/w SUSP 176GM BTL As Ordered ONE
--- NOTE | 2016-08-04 17:20 | REP ---
UPPER GI, AIR CONTRAST, AND SMALL BOWEL FOLLOW THROUGH: The procedure was performed under the direct supervision of Dr. Johnson. The images were reviewed with Dr. Johnson. The automation operator film demonstrates gallstones. The intestinal gas pattern is nonspecific. Liquid barium and gas-producing granules were given in the erect position as well as liquid barium in the prone oblique position in order to perform a double contrast upper GI examination. Additionally liquid barium was given at the end of the examination in order to perform a small bowel follow through. The oral and pharyngeal stages of deglutition are unremarkable. Esophageal transport is prompt and efficient and there is no esophagitis, stricture or mucosal ring. There is a sliding type hiatal hernia present. There is gastroesophageal reflux demonstrated to above the level of the nicole. The stomach de león are normally outlined. The rugal folds are smooth and regular. There is no gastritis, neoplasm or ulcer disease. The duodenal de león are normally outlined. The mucosal folds are smooth and regular. There is no duodenitis, pancreatitis, peptic ulcer disease or neoplasm. The visualized portion of the proximal small bowel appears normal in course and caliber. The barium column was followed through the small bowel to the level of the terminal ileum. Small bowel transit time was approximately 2 hours. Gentle palpation shows all loops are freely movable and pliable. There are no fixed or angulated loops. In the distal small bowel just proximal to the anastomosis there is narrowing and nodularity. This is essentially unchanged compared to previous study performed on 02/07/2012. IMPRESSION: 1. There is a sliding type hiatal hernia present. There is gastroesophageal reflux demonstrated to above the level of the nicole. 2. In the distal small bowel just proximal to the anastomosis there is narrowing and nodularity which is essentially unchanged compared to the previous study performed on 02/07/2012. 4 minutes and 17 seconds of fluoroscopy time was utilized for this procedure. Reviewed by ASIA Sidhu 08/04/2016 05:41 PEdited and Signed by David Johnson MD 08/07/2016 05:35 P
== END ==
LOC: M RAD 09:32
PROVIDERS: ATTEND Internal Medicine Gastroenterology
DX: K52.9 Noninfective gastroenteritis and colitis, unspecified (principal); K44.9 Diaphragmatic hernia without obstruction or gangrene; K21.9 Gastro-esophageal reflux disease without esophagitis

== ENCOUNTER → 2016-08-24 | Outpatient (CLI) | payer OTHER ==
[~2016-08-24] MED LIST changes: +ACETAMINOPHEN TAB 650MG DOSE (2X325MG) PO ONE; -E-Z-GAS II EFFERVESCENT PACKET (SODIUM BICARB./CITRIC ACID/SIMETHICONE) As Ordered ONE; -E-Z-HD 98% w/w 340GM SUSP BTL As Ordered ONE; -E-Z-PAQUE 96% w/w SUSP 176GM BTL As Ordered ONE; +VEDOLIZUMAB 300 MG in NS 250 ML IV ONE; +diphenhydrAMINE 25 MG CAP PO ONE
== END ==
LOC: M INFU 12:58
PROVIDERS: ATTEND Internal Medicine Gastroenterology
DX: K50.80 Crohn's disease of both small and large intestine without complications (principal); Z91.011 Allergy to milk products; Z88.8 Allergy status to other drugs, medicaments and biological substances; Z72.0 Tobacco use; Z79.52 Long term (current) use of systemic steroids; Z79.899 Other long term (current) drug therapy
CPT/HCPCS: 96413; J3380

== ENCOUNTER 2016-10-26 13:35 | Outpatient (CLI) | payer OTHER ==
[~2016-10-26] VITALS: Ht 162.6 cm; Wt 75.0 kg
[~2016-10-26 13:35] MED LIST changes: -ACETAMINOPHEN TAB 650MG DOSE (2X325MG) PO ONE; +CIPR-249 PO; -CIPR500T89 PO; -METF500T PO; +METF500T13 PO; -ONDA1TAB15 PO; +ONDA4TAB5 PO; -VEDOLIZUMAB 300 MG in NS 250 ML IV ONE; -diphenhydrAMINE 25 MG CAP PO ONE
[2016-10-26] MEDS ORDERED: ACETAMINOPHEN TAB 650MG DOSE (2X325MG) PO ONE (14:00)
[2016-10-26] MEDS ORDERED: VEDOLIZUMAB 300 MG in NS 250 ML IV ONE (14:00)
[2016-10-26] MEDS ORDERED: diphenhydrAMINE 25 MG CAP PO ONE (14:00)
== END 2016-10-26 15:30 | disposition home or self-care (01) ==
LOC: M INFU 13:35
PROVIDERS: ATTEND Internal Medicine Gastroenterology
DX: K50.80 Crohn's disease of both small and large intestine without complications (principal); F17.210 Nicotine dependence, cigarettes, uncomplicated; Z88.8 Allergy status to other drugs, medicaments and biological substances; Z88.5 Allergy status to narcotic agent; Z91.011 Allergy to milk products; Z79.52 Long term (current) use of systemic steroids; Z79.899 Other long term (current) drug therapy
CPT/HCPCS: 96413; 96415; J3380

== ENCOUNTER → 2016-11-30 | Outpatient (CLI) | payer OTHER | LOC: M LAB 13:41 | PROVIDERS: ATTEND Nurse Practitioner Family | DX: E11.9 Type 2 diabetes mellitus without complications (principal); E55.9 Vitamin D deficiency, unspecified; D50.9 Iron deficiency anemia, unspecified; E78.5 Hyperlipidemia, unspecified ==

== ENCOUNTER 2016-12-21 12:57 | Outpatient (CLI) | payer OTHER ==
[~2016-12-21] VITALS: Ht 162.6 cm; Wt 75.0 kg
[2016-12-21] MEDS ORDERED: diphenhydrAMINE 25 MG CAP PO ONE (13:00)
[2016-12-21] MEDS ORDERED: ACETAMINOPHEN TAB 650MG DOSE (2X325MG) PO ONE (13:00)
[2016-12-21] MEDS ORDERED: VEDOLIZUMAB 300 MG in NS 250 ML IV ONE (14:00)
== END 2016-12-21 14:35 | disposition home or self-care (01) ==
LOC: M INFU 12:57
PROVIDERS: ATTEND Internal Medicine Gastroenterology
DX: K50.80 Crohn's disease of both small and large intestine without complications (principal); Z72.0 Tobacco use; Z91.011 Allergy to milk products; Z88.5 Allergy status to narcotic agent; Z88.8 Allergy status to other drugs, medicaments and biological substances; Z79.52 Long term (current) use of systemic steroids; Z79.899 Other long term (current) drug therapy
CPT/HCPCS: 96413; J3380

== ENCOUNTER 2017-02-15 15:07 | Outpatient (CLI) | payer OTHER ==
[~2017-02-15] VITALS: Ht 162.6 cm; Wt 75.0 kg
[~2017-02-15 15:07] MED LIST changes: +ACETAMINOPHEN TAB 650MG DOSE (2X325MG) PO ONE; +VEDOLIZUMAB 300 MG in NS 250 ML IV ONE; +diphenhydrAMINE 25 MG CAP PO ONE
== END 2017-02-15 16:15 | disposition home or self-care (01) ==
LOC: M INFU 15:07
PROVIDERS: ATTEND Internal Medicine Gastroenterology
DX: K50.80 Crohn's disease of both small and large intestine without complications (principal); Z88.8 Allergy status to other drugs, medicaments and biological substances; Z88.5 Allergy status to narcotic agent; Z91.011 Allergy to milk products; Z72.0 Tobacco use; Z79.52 Long term (current) use of systemic steroids; Z79.899 Other long term (current) drug therapy
CPT/HCPCS: 96413; J3380

== ENCOUNTER 2017-02-23 10:55 | Day surgery (SDC) | payer OTHER ==
[~2017-02-23] VITALS: Ht 162.6 cm; Wt 68.0 kg
[~2017-02-23 10:55] MED LIST changes: -ACETAMINOPHEN TAB 650MG DOSE (2X325MG) PO ONE; -VEDOLIZUMAB 300 MG in NS 250 ML IV ONE; -diphenhydrAMINE 25 MG CAP PO ONE
[2017-02-23] MEDS: NS 1,000 ML IV ONE (11:14)
--- NOTE | 2017-02-23 13:11 | ROOR ---
Patient Name: Madonna Sousa Procedure Date: 02/23/2017 12:42 PM Date of : 1955 Age: 61 Room: [facility] Gender: Female Note Status: Finalized Procedure: Colonoscopy to Anastomosis + Biopsies Indications: Rectal bleeding, Follow-up of Crohn's disease of the small bowel and colon Providers: Chong Lemus MD Referring MD: Zay Morin NP Requesting Provider: Medicines: Monitored Anesthesia Care Complications: No immediate complications. Procedure: Pre-Anesthesia Assessment: - The heart rate, respiratory rate, oxygen saturations, blood pressure, adequacy of pulmonary ventilation, and response to care were monitored throughout the procedure. The Colonoscope was introduced through the anus and advanced to the ileocolonic anastomosis. The colonoscopy was performed without difficulty. The patient tolerated the procedure well. The quality of the bowel preparation was good. Findings: The perianal and digital rectal examinations were normal. Inflammation characterized by congestion (edema), erosions, erythema, granularity, pseudopolyps, aphthous ulcerations, confluent ulcerations and shallow ulcerations was found as large patches surrounded by normal mucosa in the anus and in the rectum. This was severe, and when compared to previous examinations, the findings are worsened. Biopsies for histology were taken with a cold forceps from the rectum for evaluation of microscopic colitis. Ulcerated mucosa were present at the anastomosis. Biopsies were taken with a cold forceps for histology. The exam was otherwise without abnormality. Impression: - Crohn's disease. Inflammation was found in the anus and in the rectum. This was severe. The findings are worsened compared to previous examinations. Biopsied. - Mucosal ulceration. Biopsied. - The examination was otherwise normal. - Colonic Crohn's disease. Biopsied. Recommendation: - Patient has a contact number available for emergencies. The signs and symptoms of potential delayed complications were discussed with the patient. Return to normal activities tomorrow. Written discharge instructions were provided to the patient. - Discharge patient to home. - Continue present medications. - Await pathology results. - Telephone GI clinic for pathology results in 1 week. - Repeat colonoscopy for surveillance based on pathology results. - Return to referring physician. - The findings and recommendations were discussed with the patient's family. Chong Lemus MD Chong Lemus MD 02/23/2017 1:10:57 PM This report has been signed electronically. Number of Addenda: 0 Note Initiated On: 02/23/2017 12:42 PM Estimated Blood Loss: Estimated blood loss: none.
[2017-02-23 13:35] VITALS: BP 147/76
== END 2017-02-23 13:50 | disposition home or self-care (01) ==
LOC: M OPP 10:55
PROVIDERS: ATTEND Internal Medicine Gastroenterology
DX: K50.111 Crohn's disease of large intestine with rectal bleeding (principal); K63.3 Ulcer of intestine; K62.5 Hemorrhage of anus and rectum; K21.9 Gastro-esophageal reflux disease without esophagitis; E11.9 Type 2 diabetes mellitus without complications; F32.9 Major depressive disorder, single episode, unspecified; E64.9 Sequelae of unspecified nutritional deficiency; M17.0 Bilateral primary osteoarthritis of knee; E55.9 Vitamin D deficiency, unspecified; Z87.891 Personal history of nicotine dependence; Z79.899 Other long term (current) drug therapy; Z79.84 Long term (current) use of oral hypoglycemic drugs; Z88.5 Allergy status to narcotic agent; Z88.8 Allergy status to other drugs, medicaments and biological substances; Z91.018 Allergy to other foods

== ENCOUNTER 2017-04-12 13:49 | Outpatient (CLI) | payer OTHER ==
[2017-04-12] MEDS: diphenhydrAMINE 25 MG CAP PO (14:24)
[2017-04-12] MEDS: ACETAMINOPHEN TAB 650MG DOSE (2X325MG) PO (14:24)
[2017-04-12] MEDS: VEDOLIZUMAB 300 MG in NS 250 ML IV (14:25)
== END 2017-04-12 15:15 | disposition home or self-care (01) ==
LOC: M INFU 13:49
DX: K50.80 Crohn's disease of both small and large intestine without complications (principal); D50.9 Iron deficiency anemia, unspecified; E55.9 Vitamin D deficiency, unspecified; K21.9 Gastro-esophageal reflux disease without esophagitis; E11.9 Type 2 diabetes mellitus without complications; F17.210 Nicotine dependence, cigarettes, uncomplicated; Z79.84 Long term (current) use of oral hypoglycemic drugs; Z79.899 Other long term (current) drug therapy; E73.9 Lactose intolerance, unspecified; Z88.5 Allergy status to narcotic agent; Z88.8 Allergy status to other drugs, medicaments and biological substances
CPT/HCPCS: 96365

== ENCOUNTER → 2017-04-12 | Outpatient (CLI) | payer OTHER ==
[2017-04-12 14:47] LABS: BASO % 0.3 % (0.0-1.0); EOS # 0.1 10^3/uL (0.0-0.50); EOS % 1.5 % (0.0-3.0); HEMATOCRIT 41.2 % (36.0-47.0); HEMOGLOBIN 13.5 g/dl (12.0-16.0); IMMATURE GRANULOCYTE % 0.5 % (0-0); LYMPH % 22.7 % (24.0-44.0); MEAN CORPUSCULAR HEMOGLOBIN 28.4 pg (27.0-33.0); MEAN CORPUSCULAR HGB CONC 32.8 g/dl (32.0-36.5); MEAN CORPUSCULAR VOLUME 86.7 fl (80.0-96.0); MONO # 0.7 10^3/uL (0.0-0.8); MONO % 8.3 % (0.0-5.0); NEUTROPHILS # 5.8 10^3/uL (1.8-7.7); NEUTROPHILS % 66.7 % (36.0-66.0); PLATELET COUNT, AUTOMATED 306 10^3/uL (150-450); RED BLOOD COUNT 4.75 10^6/uL (4.00-5.40); RED CELL DISTRIBUTION WIDTH 13.5 % (11.5-14.5); WHITE BLOOD COUNT 8.7 10^3/uL (4.0-10.0)
[2017-04-12 15:08] LABS: IRON (FE) 31 UG/DL (50-170)
[2017-04-12 20:54] LABS: TOTAL 25(OH) VITAMIN D 29.9 NG/ML (30.0-100.0)
== END ==
LOC: M LAB 13:46
DX: E55.9 Vitamin D deficiency, unspecified (principal); D50.9 Iron deficiency anemia, unspecified

== ENCOUNTER 2017-05-24 14:24 | Outpatient (CLI) | payer OTHER ==
[2017-05-24] MEDS: VEDOLIZUMAB 300 MG in NS 250 ML IV (14:00)
[2017-05-24] MEDS: diphenhydrAMINE 25 MG CAP PO (14:41)
[2017-05-24] MEDS: ACETAMINOPHEN TAB 650MG DOSE (2X325MG) PO (14:41)
== END 2017-05-24 15:30 | disposition home or self-care (01) ==
LOC: M INFU 14:24
DX: K50.80 Crohn's disease of both small and large intestine without complications (principal); R06.83 Snoring; E11.9 Type 2 diabetes mellitus without complications; Z79.84 Long term (current) use of oral hypoglycemic drugs; Z79.899 Other long term (current) drug therapy; Z88.5 Allergy status to narcotic agent; Z88.8 Allergy status to other drugs, medicaments and biological substances; Z91.011 Allergy to milk products; Z90.710 Acquired absence of both cervix and uterus
CPT/HCPCS: J3380

== ENCOUNTER 2017-07-05 10:04 | Outpatient (CLI) | payer OTHER ==
[2017-07-05] MEDS: VEDOLIZUMAB 300 MG in NS 250 ML IV (10:32)
[2017-07-05] MEDS: ACETAMINOPHEN TAB 650MG DOSE (2X325MG) PO (10:33)
[2017-07-05] MEDS: diphenhydrAMINE 25 MG CAP PO (10:33)
== END 2017-07-05 11:30 | disposition home or self-care (01) ==
LOC: M INFU 10:04
DX: K50.80 Crohn's disease of both small and large intestine without complications (principal); K21.9 Gastro-esophageal reflux disease without esophagitis; E11.9 Type 2 diabetes mellitus without complications; Z79.891 Long term (current) use of opiate analgesic; Z79.84 Long term (current) use of oral hypoglycemic drugs; Z88.8 Allergy status to other drugs, medicaments and biological substances; F17.210 Nicotine dependence, cigarettes, uncomplicated; E73.9 Lactose intolerance, unspecified
CPT/HCPCS: J3380

== ENCOUNTER 2017-08-23 09:19 | Outpatient (CLI) | payer OTHER ==
[2017-08-23] MEDS: diphenhydrAMINE 25 MG CAP PO (09:52)
[2017-08-23] MEDS: ACETAMINOPHEN TAB 650MG DOSE (2X325MG) PO (09:52)
[2017-08-23] MEDS: VEDOLIZUMAB 300 MG in NS 250 ML IV (09:57)
== END 2017-08-23 10:40 | disposition home or self-care (01) ==
LOC: M INFU 09:19
DX: K50.819 Crohn's disease of both small and large intestine with unspecified complications (principal); E78.5 Hyperlipidemia, unspecified; D50.9 Iron deficiency anemia, unspecified; E55.9 Vitamin D deficiency, unspecified; E11.9 Type 2 diabetes mellitus without complications; Z79.891 Long term (current) use of opiate analgesic; Z79.899 Other long term (current) drug therapy; Z90.710 Acquired absence of both cervix and uterus; Z90.49 Acquired absence of other specified parts of digestive tract; F17.210 Nicotine dependence, cigarettes, uncomplicated
CPT/HCPCS: J3380

== ENCOUNTER → 2017-08-23 | Outpatient (CLI) | payer OTHER ==
[2017-08-23 10:52] LABS: BASO % 0.5 % (0.0-1.0); EOS # 0.1 10^3/uL (0.0-0.50); EOS % 2.1 % (0.0-3.0); HEMATOCRIT 36.9 % (36.0-47.0); HEMOGLOBIN 11.9 g/dl (12.0-15.5); IMMATURE GRANULOCYTE % 0.3 % (0-3.0); LYMPH # 1.4 10^3/uL (1.5-4.5); LYMPH % 23.3 % (24.0-44.0); MEAN CORPUSCULAR HEMOGLOBIN 28.5 pg (27.0-33.0); MEAN CORPUSCULAR HGB CONC 32.2 g/dl (32.0-36.5); MEAN CORPUSCULAR VOLUME 88.3 fl (80.0-96.0); MONO # 0.6 10^3/uL (0.0-0.8); MONO % 9.8 % (0.0-5.0); NEUTROPHILS # 3.9 10^3/uL (1.8-7.7); PLATELET COUNT, AUTOMATED 252 10^3/uL (150-450); RED BLOOD COUNT 4.18 10^6/uL (4.00-5.40); RED CELL DISTRIBUTION WIDTH 13.8 % (11.5-14.5); WHITE BLOOD COUNT 6.1 10^3/uL (4.0-10.0)
[2017-08-23 11:14] LABS: ALBUMIN 2.9 GM/DL (3.2-5.2); ALBUMIN/GLOBULIN RATIO 0.85 (1.00-1.93); ALKALINE PHOSPHATASE 135 U/L (45-117); ALT/SGPT 25 U/L (12-78); ANION GAP 6 MEQ/L (8-16); AST/SGOT 11 U/L (7-37); BILIRUBIN,TOTAL 0.3 MG/DL (0.2-1.0); BLOOD UREA NITROGEN 11 MG/DL (7-18); CALCIUM LEVEL 8.4 MG/DL (8.8-10.2); CARBON DIOXIDE LEVEL 30 MEQ/L (21-32); CHLORIDE LEVEL 107 MEQ/L (98-107); CHOLESTEROL LEVEL 183 MG/DL (<200); CHOLESTEROL RISK RATIO 4.159 (<5); CREATININE FOR GFR 0.62 MG/DL (0.55-1.30); GLOMERULAR FILTRATION RATE > 60.0 (>45); GLUCOSE, FASTING 113 MG/DL (70-100); HDL CHOLESTEROL 44 MG/DL (>40); IRON (FE) 35 UG/DL (50-170); LDL CHOLESTEROL 92.8 MG/DL (<100); NON-HDL-C 139 MG/DL; POTASSIUM SERUM 3.9 MEQ/L (3.5-5.1); SODIUM LEVEL 143 MEQ/L (136-145); TOTAL PROTEIN 6.3 GM/DL (6.4-8.2); TRIGLYCERIDES LEVEL 231 MG/DL (<150)
[2017-08-23 11:20] LABS: TOTAL 25(OH) VITAMIN D 32.6 NG/ML (30.0-100.0)
== END ==
LOC: M LAB 10:07
DX: E78.5 Hyperlipidemia, unspecified (principal); D50.9 Iron deficiency anemia, unspecified; E55.9 Vitamin D deficiency, unspecified

== ENCOUNTER 2017-09-27 14:24 | Outpatient (CLI) | payer OTHER ==
[2017-09-27] MEDS: ACETAMINOPHEN TAB 650MG DOSE (2X325MG) PO (14:50)
[2017-09-27] MEDS: diphenhydrAMINE 25 MG CAP PO (14:50)
[2017-09-27] MEDS: VEDOLIZUMAB 300 MG in NS 250 ML IV (15:08)
== END 2017-09-27 15:55 | disposition home or self-care (01) ==
LOC: M INFU 14:24
DX: K50.80 Crohn's disease of both small and large intestine without complications (principal); E11.9 Type 2 diabetes mellitus without complications; Z79.84 Long term (current) use of oral hypoglycemic drugs; Z79.891 Long term (current) use of opiate analgesic; Z79.899 Other long term (current) drug therapy; Z91.011 Allergy to milk products; Z88.8 Allergy status to other drugs, medicaments and biological substances; F17.210 Nicotine dependence, cigarettes, uncomplicated
CPT/HCPCS: J3380

== ENCOUNTER 2017-11-08 12:00 | Outpatient (CLI) | payer OTHER ==
[2017-11-08] MEDS: ACETAMINOPHEN TAB 650MG DOSE (2X325MG) PO (12:33)
[2017-11-08] MEDS: diphenhydrAMINE 25 MG CAP PO (12:33)
[2017-11-08] MEDS: VEDOLIZUMAB 300 MG in NS 250 ML IV (12:51)
== END 2017-11-08 13:40 | disposition home or self-care (01) ==
LOC: M INFU 12:00
DX: K50.80 Crohn's disease of both small and large intestine without complications (principal); Z79.52 Long term (current) use of systemic steroids; Z79.899 Other long term (current) drug therapy; Z91.011 Allergy to milk products; Z88.8 Allergy status to other drugs, medicaments and biological substances; Z88.5 Allergy status to narcotic agent
CPT/HCPCS: J3380

== ENCOUNTER → 2017-11-08 | Outpatient (CLI) | payer OTHER ==
[2017-11-08 14:11] LABS: ERYTHROCYTE SEDIMENTATION RATE 27 mm/hr (0-30)
[2017-11-08 14:24] LABS: FOLATE 14.4 NG/ML; VITAMIN B12 LEVEL 147 PG/ML
[2017-11-08 14:30] LABS: FREE T4 0.78 NG/DL (0.76-1.46); RHEUMATOID FACTOR QUANT < 10.0 IU/ML (<15.0); TOTAL PROTEIN 6.7 GM/DL (6.4-8.2)
[2017-11-08 14:41] LABS: ESTIMATED AVERAGE GLUCOSE 128 MG/DL (60-110); HEMOGLOBIN A1c 6.1 %
== END ==
LOC: M LAB 08:00
DX: R20.0 Anesthesia of skin (principal); E11.9 Type 2 diabetes mellitus without complications; E07.9 Disorder of thyroid, unspecified
CPT/HCPCS: 82746

== ENCOUNTER 2017-12-20 13:05 | Outpatient (CLI) | payer OTHER ==
[2017-12-20] MEDS: diphenhydrAMINE 25 MG CAP PO (13:55)
[2017-12-20] MEDS: ACETAMINOPHEN TAB 650MG DOSE (2X325MG) PO (13:56)
[2017-12-20] MEDS: VEDOLIZUMAB 300 MG in NS 250 ML IV (13:57)
== END 2017-12-20 15:30 | disposition home or self-care (01) ==
LOC: M INFU 13:05
DX: K50.80 Crohn's disease of both small and large intestine without complications (principal); E73.9 Lactose intolerance, unspecified; K21.9 Gastro-esophageal reflux disease without esophagitis; N39.3 Stress incontinence (female) (male); D64.9 Anemia, unspecified; F32.9 Major depressive disorder, single episode, unspecified; Z88.8 Allergy status to other drugs, medicaments and biological substances; Z79.899 Other long term (current) drug therapy; Z90.49 Acquired absence of other specified parts of digestive tract; Z90.710 Acquired absence of both cervix and uterus; Z87.891 Personal history of nicotine dependence
CPT/HCPCS: J3380

== ENCOUNTER 2018-01-31 13:10 | Outpatient (CLI) | payer OTHER ==
[2018-01-31] MEDS: ACETAMINOPHEN TAB 650MG DOSE (2X325MG) PO ×2 (13:41)
[2018-01-31] MEDS: diphenhydrAMINE 25 MG CAP PO ×2 (13:41)
[2018-01-31] MEDS: VEDOLIZUMAB 300 MG in NS 250 ML IV (13:54)
== END 2018-01-31 15:30 | disposition home or self-care (01) ==
LOC: M INFU 13:10
DX: K50.80 Crohn's disease of both small and large intestine without complications (principal); E73.9 Lactose intolerance, unspecified; Z79.891 Long term (current) use of opiate analgesic; Z79.899 Other long term (current) drug therapy; Z88.8 Allergy status to other drugs, medicaments and biological substances; Z90.710 Acquired absence of both cervix and uterus; Z90.49 Acquired absence of other specified parts of digestive tract
CPT/HCPCS: J3380

== ENCOUNTER → 2018-02-12 | Outpatient (CLI) | payer OTHER ==
[2018-02-12 16:36] LABS: ESTIMATED AVERAGE GLUCOSE 131 MG/DL (60-110); HEMOGLOBIN A1c 6.2 %
[2018-02-12 16:46] LABS: ALBUMIN 3.6 GM/DL (3.2-5.2); ALKALINE PHOSPHATASE 131 U/L (45-117); ALT/SGPT 20 U/L (12-78); ANION GAP 8 MEQ/L (8-16); AST/SGOT 14 U/L (7-37); BILIRUBIN,TOTAL 0.4 MG/DL (0.2-1.0); BLOOD UREA NITROGEN 13 MG/DL (7-18); CALCIUM LEVEL 9.5 MG/DL (8.8-10.2); CARBON DIOXIDE LEVEL 31 MEQ/L (21-32); CHLORIDE LEVEL 102 MEQ/L (98-107); CREATININE FOR GFR 0.62 MG/DL (0.55-1.30); GLOMERULAR FILTRATION RATE > 60.0 (>45); GLUCOSE, FASTING 93 MG/DL (70-100); IRON (FE) 53 UG/DL (50-170); POTASSIUM SERUM 4.4 MEQ/L (3.5-5.1); SODIUM LEVEL 141 MEQ/L (136-145); TOTAL PROTEIN 7.2 GM/DL (6.4-8.2)
[2018-02-12 16:54] LABS: TOTAL 25(OH) VITAMIN D 37.9 NG/ML (30.0-100.0)
== END ==
LOC: M LAB 14:29
DX: D50.9 Iron deficiency anemia, unspecified (principal); E55.9 Vitamin D deficiency, unspecified; E11.9 Type 2 diabetes mellitus without complications
CPT/HCPCS: 83540

== ENCOUNTER 2018-03-14 13:54 | Outpatient (CLI) | payer OTHER ==
[2018-03-14] MEDS: ACETAMINOPHEN TAB 650MG DOSE (2X325MG) PO (14:12)
[2018-03-14] MEDS: diphenhydrAMINE 25 MG CAP PO (14:13)
[2018-03-14] MEDS: VEDOLIZUMAB 300 MG in NS 250 ML IV (14:20)
== END 2018-03-14 15:30 | disposition home or self-care (01) ==
LOC: M INFU 13:54
DX: K50.10 Crohn's disease of large intestine without complications (principal); K50.00 Crohn's disease of small intestine without complications; Z88.8 Allergy status to other drugs, medicaments and biological substances; Z88.5 Allergy status to narcotic agent
CPT/HCPCS: J3380

== ENCOUNTER 2018-05-02 09:39 | Outpatient (CLI) | payer MEDICAID, OTHER ==
[~2018-05-02] VITALS: Ht 162.6 cm; Wt 75.0 kg
[~2018-05-02 09:39] MED LIST changes: -DRIS50002 PO; +DRIS50003 PO
[2018-05-02 09:45] VITALS: BP 153/68
[2018-05-02] MEDS ORDERED: ACETAMINOPHEN TAB 650MG DOSE (2X325MG) PO ONE (10:00)
[2018-05-02] MEDS ORDERED: VEDOLIZUMAB 300 MG in NS 250 ML IV ONE (10:00)
[2018-05-02] MEDS ORDERED: diphenhydrAMINE 25 MG CAP PO ONE (10:00)
[2018-05-02 11:00] VITALS: BP 123/68
== END 2018-05-02 11:00 | disposition home or self-care (01) ==
LOC: M INFU 09:39
PROVIDERS: ATTEND Internal Medicine Gastroenterology
DX: K50.90 Crohn's disease, unspecified, without complications (principal); Z88.8 Allergy status to other drugs, medicaments and biological substances; Z88.5 Allergy status to narcotic agent
CPT/HCPCS: 96365; J3380

== ENCOUNTER 2018-06-13 08:58 | Outpatient (CLI) | payer OTHER ==
[~2018-06-13] VITALS: Ht 162.6 cm; Wt 75.0 kg
[2018-06-13 09:00] VITALS: BP 138/68
[2018-06-13] MEDS ORDERED: diphenhydrAMINE 25 MG CAP PO ONE (09:15)
[2018-06-13] MEDS ORDERED: ACETAMINOPHEN TAB 650MG DOSE (2X325MG) PO ONE (09:15)
[2018-06-13] MEDS ORDERED: VEDOLIZUMAB 300 MG in NS 250 ML IV ONE (09:30)
[2018-06-13 10:30] VITALS: BP 138/79
== END 2018-06-13 10:30 | disposition home or self-care (01) ==
LOC: M INFU 08:58
PROVIDERS: ATTEND Internal Medicine Gastroenterology
DX: K50.90 Crohn's disease, unspecified, without complications (principal); Z88.8 Allergy status to other drugs, medicaments and biological substances; Z88.5 Allergy status to narcotic agent
CPT/HCPCS: 96365; J3380

== ENCOUNTER 2018-07-25 08:50 | Outpatient (CLI) | payer OTHER ==
[~2018-07-25] VITALS: Ht 162.6 cm; Wt 75.0 kg
[~2018-07-25 08:50] MED LIST changes: -/ESCI20TA PO; +BUDE3CAP15 PO; -ENTO3CAP5 PO; +LEXA1TAB2 PO; -SERT25TA PO; +SERT25TA85 PO
[2018-07-25 09:00] VITALS: BP 132/69
[2018-07-25] MEDS ORDERED: ACETAMINOPHEN TAB 650MG DOSE (2X325MG) PO ONE (10:00)
[2018-07-25] MEDS ORDERED: diphenhydrAMINE 25 MG CAP PO ONE (10:00)
[2018-07-25] MEDS ORDERED: VEDOLIZUMAB 300 MG in NS 250 ML IV ONE (10:00)
[2018-07-25 10:10] VITALS: BP 118/60
== END 2018-07-25 10:30 | disposition home or self-care (01) ==
LOC: M INFU 08:50
PROVIDERS: ATTEND Internal Medicine Gastroenterology
DX: K50.90 Crohn's disease, unspecified, without complications (principal); Z88.5 Allergy status to narcotic agent; Z88.8 Allergy status to other drugs, medicaments and biological substances
CPT/HCPCS: 96365; J3380

== ENCOUNTER 2018-09-05 09:41 | Outpatient (CLI) | payer OTHER ==
[~2018-09-05] VITALS: Ht 162.6 cm; Wt 75.0 kg
[2018-09-05 10:33] VITALS: BP 131/73
[2018-09-05] MEDS ORDERED: ACETAMINOPHEN TAB 650MG DOSE (2X325MG) PO ONE (11:00)
[2018-09-05] MEDS ORDERED: VEDOLIZUMAB 300 MG in NS 250 ML IV ONE (11:00)
[2018-09-05] MEDS ORDERED: diphenhydrAMINE 25 MG CAP PO ONE (11:00)
[2018-09-05 12:15] VITALS: BP 133/61
== END 2018-09-05 12:15 | disposition home or self-care (01) ==
LOC: M INFU 09:41
PROVIDERS: ATTEND Internal Medicine Gastroenterology
DX: K50.90 Crohn's disease, unspecified, without complications (principal); Z88.5 Allergy status to narcotic agent; Z79.899 Other long term (current) drug therapy
CPT/HCPCS: 96365; J3380

== ENCOUNTER → 2018-09-24 | Outpatient (REF) | payer OTHER ==
[2018-09-24 19:17] LABS: ALBUMIN 3.5 GM/DL (3.2-5.2); ALT/SGPT 24 U/L (12-78); BILIRUBIN,TOTAL 0.4 MG/DL (0.2-1.0); BLOOD UREA NITROGEN 16 MG/DL (7-18); CALCIUM LEVEL 9.8 MG/DL (8.8-10.2); CARBON DIOXIDE LEVEL 30 MEQ/L (21-32); CHLORIDE LEVEL 103 MEQ/L (98-107); CREATININE FOR GFR 0.66 MG/DL (0.55-1.30); GLOMERULAR FILTRATION RATE > 60.0 (>45); GLUCOSE, FASTING 104 MG/DL (70-100); POTASSIUM SERUM 4.7 MEQ/L (3.5-5.1); SODIUM LEVEL 141 MEQ/L (136-145); TOTAL PROTEIN 7.5 GM/DL (6.4-8.2)
[2018-09-24 19:23] LABS: VITAMIN B12 LEVEL 446 PG/ML
[2018-09-24 19:24] LABS: FOLATE 7.6 NG/ML
[2018-09-24 19:29] LABS: HEMOGLOBIN A1c 6.5 %
== END ==
LOC: M LABNEURO 11:48
PROVIDERS: ATTEND Physician Assistant Medical
DX: G62.9 Polyneuropathy, unspecified (principal); E11.9 Type 2 diabetes mellitus without complications; D51.9 Vitamin B12 deficiency anemia, unspecified

== ENCOUNTER 2018-10-17 08:56 | Outpatient (CLI) | payer OTHER ==
[~2018-10-17] VITALS: Ht 162.6 cm; Wt 75.0 kg
[2018-10-17 09:08] VITALS: BP 137/68
[2018-10-17] MEDS ORDERED: ACETAMINOPHEN TAB 650MG DOSE (2X325MG) PO ONE (10:00)
[2018-10-17] MEDS ORDERED: diphenhydrAMINE 25 MG CAP PO ONE (10:00)
[2018-10-17] MEDS ORDERED: VEDOLIZUMAB 300 MG in NS 250 ML IV ONE (10:00)
[2018-10-17 10:51] VITALS: BP 121/61
== END 2018-10-17 10:50 | disposition home or self-care (01) ==
LOC: M INFU 08:56
PROVIDERS: ATTEND Internal Medicine Gastroenterology
DX: K50.90 Crohn's disease, unspecified, without complications (principal)
CPT/HCPCS: 96365; J3380

== ENCOUNTER 2018-11-28 09:39 | Outpatient (CLI) | payer OTHER ==
[~2018-11-28] VITALS: Ht 162.6 cm; Wt 75.0 kg
[2018-11-28 09:45] VITALS: BP 117/59
[2018-11-28] MEDS ORDERED: VEDOLIZUMAB 300 MG in NS 250 ML IV ONE (10:00)
[2018-11-28] MEDS ORDERED: diphenhydrAMINE 25 MG CAP PO ONE (10:00)
[2018-11-28] MEDS ORDERED: ACETAMINOPHEN TAB 650MG DOSE (2X325MG) PO ONE (10:00)
[2018-11-28 11:10] VITALS: BP 119/59
== END 2018-11-28 11:15 ==
LOC: M INFU 09:39
PROVIDERS: ATTEND Internal Medicine Gastroenterology
DX: K50.90 Crohn's disease, unspecified, without complications (principal)
CPT/HCPCS: 96365; J3380

== ENCOUNTER 2018-12-03 12:18 | Emergency (ER) | payer OTHER ==
[~2018-12-03 12:18] MED LIST changes: -OMEP40CA2 PO; +OMEP40CA97 PO; +ONDA-83 PO; -ONDA4TAB5 PO
--- NOTE | 2018-12-03 13:40 | REP ---
CT of the head without contrast Indication: Fall. Comparison: Head CT of 06/06/2016. Technique: Axial CT of the head was performed without contrast. Findings: There is no visible soft tissue swelling or calvarial fracture. There is no evidence of acute intracranial hemorrhage or extra-axial fluid collection. There is a similar appearance of bifrontal and temporal encephalomalacia, presumably related to remote insult. There is no mass effect or midline shift. The basal cisterns are patent. There is no hydrocephalus. The visualized paranasal sinuses and mastoid air cells are clear. Impression: No acute intracranial abnormality. Similar appearance of bilateral frontal and temporal encephalomalacia. Electronically Signed by Ashley Zabala MD 12/03/2018 01:31 P
[2018-12-03 13:54] LABS: HEMATOCRIT 42.3 % (36.0-47.0); HEMOGLOBIN 13.7 g/dl (12.0-15.5); MEAN CORPUSCULAR HEMOGLOBIN 28.2 pg (27.0-33.0); MEAN CORPUSCULAR HGB CONC 32.4 g/dl (32.0-36.5); PLATELET COUNT, AUTOMATED 316 10^3/uL (150-450); RED BLOOD COUNT 4.86 10^6/uL (4.00-5.40); WHITE BLOOD COUNT 11.5 10^3/uL (4.0-10.0)
--- NOTE | 2018-12-03 14:10 | REP ---
PELVIS: AP view of the pelvis is performed. There is no evidence of acute fracture or dislocation. Mild degenerative changes are seen at each hip joint. IMPRESSION: No acute fracture or dislocation. Electronically Signed by David Johnson MD 12/04/2018 12:07 A
--- NOTE | 2018-12-03 14:12 | REP ---
RIGHT HIP, TWO VIEWS: Two views of the right hip are performed. There is no acute fracture or dislocation. Mild degenerative changes are seen at the right hip joint. IMPRESSION: No acute fracture or dislocation. Electronically Signed by David Johnson MD 12/04/2018 12:08 A
[2018-12-03 14:48] LABS: ACETAMINOPHEN LEVEL < 2.0 UG/ML (10.0-30.0); ALBUMIN 2.6 GM/DL (3.2-5.2); ALT/SGPT 17 U/L (12-78); BILIRUBIN,DIRECT < 0.1 MG/DL (0.0-0.2); BILIRUBIN,TOTAL 0.3 MG/DL (0.2-1.0); BLOOD UREA NITROGEN 8 MG/DL (7-18); CALCIUM LEVEL 8.7 MG/DL (8.8-10.2); CARBON DIOXIDE LEVEL 31 MEQ/L (21-32); CHLORIDE LEVEL 93 MEQ/L (98-107); CREATININE FOR GFR 0.68 MG/DL (0.55-1.30); ETHYL ALCOHOL (ETHANOL) < 0.003 % (0.000-0.010); GLOMERULAR FILTRATION RATE > 60.0 (>45); GLUCOSE, FASTING 178 MG/DL (70-100); POTASSIUM SERUM 3.5 MEQ/L (3.5-5.1); SALICYLATE LEVEL < 1.7 MG/DL (5.0-30.0); SODIUM LEVEL 132 MEQ/L (136-145); TOTAL PROTEIN 6.9 GM/DL (6.4-8.2)
[2018-12-03 15:22] LABS: AMPHETAMINES LEVEL URINE NEGATIVE (NEGATIVE); BARBITURATES URINE NEGATIVE (NEGATIVE); BENZODIAZEPINES URINE NEGATIVE (NEGATIVE); CANNABINOIDS URINE NEGATIVE (NEGATIVE); COCAINE METABOLITE URINE NEGATIVE (NEGATIVE); METHADONE URINE NEGATIVE (NEGATIVE); OPIATES URINE NEGATIVE (NEGATIVE); PHENCYCLIDINE URINE NEGATIVE (NEGATIVE)
[2018-12-03] MEDS ORDERED: CIPROFLOXACIN 500 MG TAB PO ONE (16:15)
[2018-12-03] MEDS ORDERED: CIPR-249 PO (17:27)
[2018-12-03 17:51] VITALS: BP 141/69
--- NOTE | 2018-12-03 18:56 | ECGEPIP ---
[facility] - ED Test Date: 2018-12-03 Pat Name: EDEN HAYNES Department: Room: - Gender: Female [employer]: susan : 1955 Requested By: Maris Paez Order Number: [id number] Reading MD: Nick Gutiérrez Measurements Intervals [place] Rate: 79 P: 57 ID: 135 QRS: 19 QRSD: 101 T: 40 QT: 397 QTc: 458 Interpretive Statements SINUS RHYTHM NONSPECIFIC T-WAVE ABNORMALITY SIMILAR TO 06/06/16 Electronically Signed on 12-03-2018 18:56:03 EDT by Nick Gutiérrez
== END 2018-12-03 17:53 | disposition home or self-care (01) ==
LOC: M ED 12:18
DX: S70.01XA Contusion of right hip, initial encounter (principal); W01.198A Fall on same level from slipping, tripping and stumbling with subsequent striking against other object, initial encounter; Y92.014 Private driveway to single-family (private) house as the place of occurrence of the external cause; N39.0 Urinary tract infection, site not specified; Z87.820 Personal history of traumatic brain injury; Z79.899 Other long term (current) drug therapy; Z79.84 Long term (current) use of oral hypoglycemic drugs; Z88.5 Allergy status to narcotic agent; Z88.8 Allergy status to other drugs, medicaments and biological substances; Z91.011 Allergy to milk products
CPT/HCPCS: 36415; 70450; 72170; 73502; 80048; 80076; 80307; 81001; 84443; 85027; 87086; 93005; 99284; G0480

== ENCOUNTER → 2018-12-12 | Outpatient (CLI) | payer MEDICARE ==
[~2018-12-12] MED LIST changes: +OMEP40CA2 PO; -OMEP40CA97 PO; -ONDA-83 PO; +ONDA4TAB5 PO
[2018-12-12 14:30] LABS: HEMATOCRIT 39.9 % (36.0-47.0); HEMOGLOBIN 12.6 g/dl (12.0-15.5); MEAN CORPUSCULAR HGB CONC 31.6 g/dl (32.0-36.5); MEAN CORPUSCULAR VOLUME 85.6 fl (80.0-96.0); PLATELET COUNT, AUTOMATED 461 10^3/uL (150-450); RED BLOOD COUNT 4.66 10^6/uL (4.00-5.40); WHITE BLOOD COUNT 12.8 10^3/uL (4.0-10.0)
[2018-12-12 14:35] LABS: ALBUMIN 2.5 GM/DL (3.2-5.2); ALT/SGPT 12 U/L (12-78); BILIRUBIN,TOTAL 0.4 MG/DL (0.2-1.0); BLOOD UREA NITROGEN 10 MG/DL (7-18); CALCIUM LEVEL 9.3 MG/DL (8.8-10.2); CARBON DIOXIDE LEVEL 33 MEQ/L (21-32); CHLORIDE LEVEL 94 MEQ/L (98-107); CHOLESTEROL LEVEL 151 MG/DL (<200); CHOLESTEROL RISK RATIO 3.511 (<5); CREATININE FOR GFR 0.86 MG/DL (0.55-1.30); FERRITIN 400 NG/ML (8-252); GLOMERULAR FILTRATION RATE > 60.0 (>45); GLUCOSE, FASTING 188 MG/DL (70-100); HDL CHOLESTEROL 43 MG/DL (>40); IRON (FE) 23 UG/DL (50-170); LDL CHOLESTEROL 79 MG/DL (<100); NON-HDL-C 108 MG/DL; PERCENT SATURATION 11.8 % (13.2-45.0); POTASSIUM SERUM 3.9 MEQ/L (3.5-5.1); SODIUM LEVEL 136 MEQ/L (136-145); TOTAL IRON BINDING CAPACITY 195 UG/DL (250-450); TRIGLYCERIDES LEVEL 144 MG/DL (<150)
[2018-12-12 14:43] LABS: VITAMIN B12 LEVEL 393 PG/ML (247-911)
[2018-12-12 21:00] LABS: MALB URINE SIEMENS 92.4 MG/L
== END ==
LOC: M WUC 11:49
DX: Z00.00 Encounter for general adult medical examination without abnormal findings (principal); D64.9 Anemia, unspecified; E11.9 Type 2 diabetes mellitus without complications; K50.811 Crohn's disease of both small and large intestine with rectal bleeding

== ENCOUNTER 2019-01-09 10:06 | Outpatient (CLI) | payer OTHER ==
[~2019-01-09] VITALS: Ht 162.6 cm; Wt 75.0 kg
[2019-01-09 10:10] VITALS: BP 139/68
[2019-01-09] MEDS ORDERED: ACETAMINOPHEN TAB 650MG DOSE (2X325MG) PO ONE (11:00)
[2019-01-09] MEDS ORDERED: VEDOLIZUMAB 300 MG in NS 250 ML IV ONE (11:00)
[2019-01-09] MEDS ORDERED: diphenhydrAMINE 25 MG CAP PO ONE (11:00)
[2019-01-09 11:45] VITALS: BP 126/63
== END 2019-01-09 11:45 | disposition home or self-care (01) ==
LOC: M INFU 10:06
PROVIDERS: ATTEND Internal Medicine Gastroenterology
DX: K50.90 Crohn's disease, unspecified, without complications (principal); Z79.84 Long term (current) use of oral hypoglycemic drugs; Z79.899 Other long term (current) drug therapy; Z88.5 Allergy status to narcotic agent; Z88.8 Allergy status to other drugs, medicaments and biological substances
CPT/HCPCS: 96365; J3380

== ENCOUNTER 2019-02-20 10:23 | Outpatient (CLI) | payer OTHER ==
[~2019-02-20] VITALS: Ht 162.6 cm; Wt 75.0 kg
[~2019-02-20 10:23] MED LIST changes: -OMEP40CA2 PO; +OMEP40CA97 PO
[2019-02-20] MEDS ORDERED: VEDOLIZUMAB 300 MG in NS 250 ML IV ONE (10:45)
[2019-02-20] MEDS ORDERED: diphenhydrAMINE 25 MG CAP PO ONE (10:45)
[2019-02-20] MEDS ORDERED: ACETAMINOPHEN TAB 650MG DOSE (2X325MG) PO ONE (10:45)
[2019-02-20 10:49] VITALS: BP 127/76
[2019-02-20 11:50] VITALS: BP 131/80
[2019-02-20 12:10] VITALS: BP 137/66
[2019-02-20 12:24] VITALS: BP 124/72
== END 2019-02-20 12:30 | disposition home or self-care (01) ==
LOC: M INFU 10:23
PROVIDERS: ATTEND Internal Medicine Gastroenterology
DX: K50.90 Crohn's disease, unspecified, without complications (principal); Z88.5 Allergy status to narcotic agent; Z88.8 Allergy status to other drugs, medicaments and biological substances
CPT/HCPCS: 96365; J3380

== ENCOUNTER 2019-04-03 08:53 | Outpatient (CLI) | payer OTHER ==
[~2019-04-03] VITALS: Ht 162.6 cm; Wt 75.0 kg
[2019-04-03] MEDS ORDERED: VEDOLIZUMAB 300 MG in NS 250 ML IV ONE (09:00)
[2019-04-03] MEDS ORDERED: diphenhydrAMINE 25 MG CAP PO ONE (09:00)
[2019-04-03] MEDS ORDERED: ACETAMINOPHEN TAB 650MG DOSE (2X325MG) PO ONE (09:00)
== END 2019-04-03 10:20 | disposition home or self-care (01) ==
LOC: M INFU 08:53
PROVIDERS: ATTEND Internal Medicine Gastroenterology
DX: K50.90 Crohn's disease, unspecified, without complications (principal); E11.9 Type 2 diabetes mellitus without complications; Z88.5 Allergy status to narcotic agent; Z88.8 Allergy status to other drugs, medicaments and biological substances
CPT/HCPCS: 36415; 83036; 96365; J3380

== ENCOUNTER → 2019-04-03 | Outpatient (CLI) | payer OTHER ==
[2019-04-03 10:47] LABS: HEMOGLOBIN A1c 6.1 %
== END ==
LOC: M LAB 09:03
PROVIDERS: ATTEND Student in an Organized Health Care Education/Training Program
DX: E11.9 Type 2 diabetes mellitus without complications (principal)

== ENCOUNTER 2019-04-09 19:52 | Inpatient (IN) | payer OTHER ==
[~2019-04-09] VITALS: Ht 162.6 cm; Wt 56.9 kg
[~2019-04-09 19:52] MED LIST changes: +ONDA-83 PO; -ONDA4TAB5 PO
[2019-04-09] MEDS ORDERED: NS 1,000 ML IV ONE (21:00)
[2019-04-09 21:19] LABS: BASO # 0.1 10^3/uL (0.0-0.2); BASO % 0.4 % (0.0-1.0); EOS # 0.1 10^3/uL (0.0-0.5); EOS % 0.7 % (0.0-3.0); HEMATOCRIT 39.2 % (36.0-47.0); HEMOGLOBIN 12.7 g/dl (12.0-15.5); LYMPH # 1.5 10^3/uL (1.5-5.0); LYMPH % 11.1 % (24.0-44.0); MEAN CORPUSCULAR HEMOGLOBIN 28.9 pg (27.0-33.0); MEAN CORPUSCULAR HGB CONC 32.4 g/dl (32.0-36.5); MEAN CORPUSCULAR VOLUME 89.3 fl (80.0-96.0); MONO # 1.1 10^3/uL (0.0-0.8); MONO % 8.2 % (0.0-5.0); NEUTROPHILS # 10.6 10^3/uL (1.5-8.5); NEUTROPHILS % 78.7 % (36.0-66.0); PLATELET COUNT, AUTOMATED 531 10^3/uL (150-450); RED BLOOD COUNT 4.39 10^6/uL (4.00-5.40); WHITE BLOOD COUNT 13.5 10^3/uL (4.0-10.0)
[2019-04-09 21:31] LABS: INR 1.26; PROTHROMBIN TIME 15.5 SECONDS (11.8-14.0)
[2019-04-09 21:32] LABS: PARTIAL THROMBOPLASTIN TIME 28.2 SECONDS (25.0-38.4)
[2019-04-09 21:47] LABS: ALBUMIN 2.3 GM/DL (3.2-5.2); ALT/SGPT 24 U/L (12-78); BILIRUBIN,DIRECT 0.2 MG/DL (0.0-0.2); BILIRUBIN,TOTAL 0.4 MG/DL (0.2-1.0); CK-MB VALUE MASS < 1.0 NG/ML (<3.6); CPK CREATINE PHOSPHOKINASE 11 U/L (26-192); LIPASE 103 U/L (73-393); MB/CK RELATIVE INDEX 9.09 (< OR =4); TOTAL PROTEIN 6.8 GM/DL (6.4-8.2); TROPONIN I < 0.02 NG/ML (< 0.10)
[2019-04-09] MEDS: GASTROGRAFIN SOLUTION 30ML PO SCH ×2 (21:47→22:14)
--- NOTE | 2019-04-09 21:53 | REP ---
Clinical: Chest and abdominal pain . Comparison: 06/06/2016 . Technique: PA and lateral. Findings: The mediastinum and cardiac silhouette are normal. The lung navarro demonstrate chronic changes without acute consolidation, effusion, or pneumothorax. The skeletal structures are intact and normal. Impression: 1. No acute cardiopulmonary process. Electronically Signed by Ajay Padilla MD 04/09/2019 09:44 P
[2019-04-09] MEDS ORDERED: PATIENT COMMENT (22:10)
[2019-04-09] MEDS ORDERED: ANTI2TAB16 PO (22:13)
[2019-04-09] MEDS ORDERED: ENTY1INJ IV (22:13)
[2019-04-09] MEDS ORDERED: ISOVUE-370 76% 100ML VIAL (Q9967) As Ordered ONE (23:03)
--- NOTE | 2019-04-10 00:41 | REPVR ---
PROCEDURE INFORMATION: Exam: CT Abdomen And Pelvis With Contrast Exam date and time: 04/09/2019 8:50 PM Age: 63 years old Clinical indication: Abdominal pain; Generalized; Additional info: Abd pain, diarrhea, HX of crohn's TECHNIQUE: Imaging protocol: Computed tomography of the abdomen and pelvis with intravenous contrast. Radiation optimization: All CT scans at this facility use at least one of these dose optimization techniques: automated exposure control; mA and/or kV adjustment per patient size (includes targeted exams where dose is matched to clinical indication); or iterative reconstruction. Contrast material: ISO; Contrast volume: 100 ml; Contrast route: HAND; Other contrast: Route: Oral, Material: gastro, Volume: 600; COMPARISON: CT ABD PELVIS WITH CONTRAST 06/06/2016 2:27 PM FINDINGS: Liver: There is hepatomegaly and hepatic steatosis. Gallbladder and bile ducts: Multiple calculi in the gallbladder. No gallbladder wall thickening or pericholecystic fluid. No biliary duct dilation. Pancreas: Normal. No ductal dilation. Spleen: Normal. No splenomegaly. Adrenals: Normal. No mass. Kidneys and ureters: Normal. No hydronephrosis. Stomach and bowel: There appears to been prior partial colectomy. Area of wall thickening in the transverse colon in the right upper abdomen does not appear significantly changed. No colonic obstruction. Persistent circumferential wall thickening in the distal sigmoid colon and rectum with multiple strictures in the rectum. Three small sinus tracts are also noted arising from the lateral and posterior surfaces of the rectum. Tract posterior to the rectum measures 4.8 cm in length. Collections lateral to the rectum both contain fluid and some air, measuring 3.2 cm on the right and 2.8 cm on the left. Associated perirectal stranding and edema. No inflammatory changes in the small bowel or bowel obstruction. Appendix: No evidence of appendicitis. Intraperitoneal space: Unremarkable. No free air. No significant fluid collection. Vasculature: Unremarkable. No abdominal aortic aneurysm. Lymph nodes: Unremarkable. No enlarged lymph nodes. Bladder: Unremarkable as visualized. Reproductive: There has been prior hysterectomy. Bones/joints: Unremarkable. No acute fracture. Soft tissues: Unremarkable. IMPRESSION: 1. Persistent wall thickening in the distal sigmoid colon and rectum with interval development of 3 sinus tracts arising from the rectum in the pelvis. 2. Nonobstructing stricture in the transverse colon. 3. Hepatic steatosis and hepatomegaly. Electronically signed by: Mark Avery On 04/10/2019 00:41:21 AM
[2019-04-10] MEDS ORDERED: LOMOTIL 2.5MG/0.025MG TABLET PO ONE (01:30)
[2019-04-10] MEDS ORDERED: SODIUM CHLORIDE 0.9% 1000ML IV STA (01:36)
[2019-04-10] MEDS ORDERED: DEXTROSE 50% 50 ML SYRINGE IV PRN (02:15)
[2019-04-10] MEDS ORDERED: ACETAMINOPHEN TAB 650MG DOSE (2X325MG) PO PRN (02:15)
[2019-04-10] MEDS ORDERED: MAALOX 30 ML SUSP *UDC PO PRN (02:15)
[2019-04-10] MEDS ORDERED: GLUCAGON FOR INJ 1 MG VIAL (J1610) SC PRN (02:15)
[2019-04-10] MEDS ORDERED: GLUCOSE 4 GM CHEW TABLET PO PRN (02:15)
[2019-04-10] MEDS: methylPREDNISolone INJ 125 MG/2 ML VIAL (J2930) IV SCH (02:57)
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
[2019-04-10 03:30] VITALS: BP 119/66
[2019-04-10 04:01] LABS: VENOUS BASE EXCESS -0.4 (-2.0-2.0); VENOUS HCO3 21.8 MEQ/L (23.0-27.0); VENOUS O2 SATURATION 99.4 % (60.0-80.0); VENOUS PARTIAL PRESSURE CO2 28.3 mmHg (38.0-50.0); VENOUS PARTIAL PRESSURE O2 194.6 mmHg (30.0-50.0); VENOUS PH 7.504 UNITS (7.330-7.430); VENOUS STANDARD HCO3 24.2 MEQ/L; VENOUS TOTAL CO2 22.6 MEQ/L (24.0-28.0)
[2019-04-10 04:13] LABS: HEMATOCRIT 33.6 % (36.0-47.0); MEAN CORPUSCULAR HEMOGLOBIN 29.3 pg (27.0-33.0); MEAN CORPUSCULAR HGB CONC 32.7 g/dl (32.0-36.5); MEAN CORPUSCULAR VOLUME 89.6 fl (80.0-96.0); PLATELET COUNT, AUTOMATED 450 10^3/uL (150-450); RED BLOOD COUNT 3.75 10^6/uL (4.00-5.40); WHITE BLOOD COUNT 13.4 10^3/uL (4.0-10.0)
[2019-04-10 04:20] LABS: SODIUM LEVEL 134 MEQ/L (136-145)
[2019-04-10 04:30] LABS: OSMOLALITY SERUM 270 MOSM/KG (280-301)
[2019-04-10 04:36] LABS: BLOOD UREA NITROGEN 11 MG/DL (7-18); CALCIUM LEVEL 7.7 MG/DL (8.8-10.2); CARBON DIOXIDE LEVEL 24 MEQ/L (21-32); CHLORIDE LEVEL 99 MEQ/L (98-107); CREATININE FOR GFR 0.41 MG/DL (0.55-1.30); GLOMERULAR FILTRATION RATE > 60.0 (>45); GLUCOSE, FASTING 135 MG/DL (70-100); POTASSIUM SERUM 3.7 MEQ/L (3.5-5.1); SODIUM LEVEL 133 MEQ/L (136-145)
[2019-04-10] MEDS: metroNIDAZOLE 500 MG in IV 1 EA IV SCH ×3 (04:51→20:06)
[2019-04-10 06:31] LABS: OSMOLALITY URINE 146 MOSM/KG (500-800)
[2019-04-10 06:46] LABS: SODIUM,RANDOM URINE 16 MEQ/L
[2019-04-10 07:54] VITALS: BP 115/69
[2019-04-10] MEDS: HumaLOG INSULIN (NovoLOG) PER UNIT SC SCH ×4 (08:38→21:00)
[2019-04-10] MEDS: OMEPRAZOLE 20 MG CAP PO SCH (08:38)
[2019-04-10] MEDS: ENOXAPARIN 40 MG/0.4 ML SYRINGE (J1650) SC SCH (08:38)
[2019-04-10] MEDS: FERROUS SULFATE 325MG TAB PO SCH (08:38)
[2019-04-10] MEDS: SERTRALINE HCL 25 MG TABLET PO SCH (08:38)
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
[2019-04-10 11:50] VITALS: BP 114/63
[2019-04-10 15:40] VITALS: BP 135/70
[2019-04-10 20:00] VITALS: BP 123/68
[2019-04-11] MEDS: metroNIDAZOLE 500 MG in IV 1 EA IV SCH ×3 (03:11→21:31)
[2019-04-11] MEDS: methylPREDNISolone INJ 125 MG/2 ML VIAL (J2930) IV SCH (03:11)
[2019-04-11 04:00] VITALS: BP 119/62
[2019-04-11 06:03] VITALS: BP 109/64
[2019-04-11] MEDS: FERROUS SULFATE 325MG TAB PO SCH (08:06)
[2019-04-11] MEDS: OMEPRAZOLE 20 MG CAP PO SCH (08:06)
[2019-04-11] MEDS: SERTRALINE HCL 25 MG TABLET PO SCH (08:06)
[2019-04-11] MEDS: ENOXAPARIN 40 MG/0.4 ML SYRINGE (J1650) SC SCH (08:07)
[2019-04-11] MEDS: HumaLOG INSULIN (NovoLOG) PER UNIT SC SCH ×4 (08:07→21:00)
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
[2019-04-11] MEDS ORDERED: MAG SULF 1GM/100ML (MAG RUN) 1 GM in IV 1 EA IV ONE (13:00)
[2019-04-11 14:00] VITALS: BP 117/60
[2019-04-11 16:54] LABS: BLOOD UREA NITROGEN 11 MG/DL (7-18); CALCIUM LEVEL 8.4 MG/DL (8.8-10.2); CARBON DIOXIDE LEVEL 28 MEQ/L (21-32); CHLORIDE LEVEL 98 MEQ/L (98-107); CREATININE FOR GFR 0.68 MG/DL (0.55-1.30); GLOMERULAR FILTRATION RATE > 60.0 (>45); GLUCOSE, FASTING 235 MG/DL (70-100); POTASSIUM SERUM 2.8 MEQ/L (3.5-5.1); SODIUM LEVEL 133 MEQ/L (136-145)
[2019-04-11] MEDS: LOPERAMIDE 2 MG CAPLET PO PRN (21:31)
[2019-04-11 22:00] VITALS: BP 135/75
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
[2019-04-12] MEDS: metroNIDAZOLE 500 MG in IV 1 EA IV SCH ×3 (03:59→20:34)
[2019-04-12] MEDS: methylPREDNISolone INJ 125 MG/2 ML VIAL (J2930) IV SCH (03:59)
[2019-04-12 06:00] VITALS: BP 123/75
[2019-04-12 06:35] LABS: HEMATOCRIT 34.2 % (36.0-47.0); HEMOGLOBIN 11.1 g/dl (12.0-15.5); MEAN CORPUSCULAR HEMOGLOBIN 29.4 pg (27.0-33.0); MEAN CORPUSCULAR HGB CONC 32.5 g/dl (32.0-36.5); MEAN CORPUSCULAR VOLUME 90.5 fl (80.0-96.0); PLATELET COUNT, AUTOMATED 446 10^3/uL (150-450); RED BLOOD COUNT 3.78 10^6/uL (4.00-5.40); WHITE BLOOD COUNT 9.3 10^3/uL (4.0-10.0)
[2019-04-12 06:55] LABS: BLOOD UREA NITROGEN 7 MG/DL (7-18); CALCIUM LEVEL 8.2 MG/DL (8.8-10.2); CARBON DIOXIDE LEVEL 27 MEQ/L (21-32); CHLORIDE LEVEL 103 MEQ/L (98-107); CREATININE FOR GFR 0.49 MG/DL (0.55-1.30); GLOMERULAR FILTRATION RATE > 60.0 (>45); GLUCOSE, FASTING 149 MG/DL (70-100); POTASSIUM SERUM 2.7 MEQ/L (3.5-5.1); SODIUM LEVEL 139 MEQ/L (136-145)
[2019-04-12] MEDS ORDERED: POTASSIUM CHLORIDE 10 MEQ SR TABLET PO ONE ×2 (07:00→14:00)
[2019-04-12] MEDS: OMEPRAZOLE 20 MG CAP PO SCH (08:09)
[2019-04-12] MEDS: FERROUS SULFATE 325MG TAB PO SCH (08:09)
[2019-04-12] MEDS: SERTRALINE HCL 25 MG TABLET PO SCH (08:09)
[2019-04-12] MEDS: LOPERAMIDE 2 MG CAPLET PO PRN ×2 (08:09→16:48)
[2019-04-12] MEDS: HumaLOG INSULIN (NovoLOG) PER UNIT SC SCH ×4 (08:10→21:00)
[2019-04-12] MEDS: KCL 10MEQ/100ML SWI (KRUN) 10 MEQ in IV 1 EA IV SCH ×4 (08:10→11:40)
[2019-04-12] MEDS: ENOXAPARIN 40 MG/0.4 ML SYRINGE (J1650) SC SCH (08:10)
--- NOTE | 2019-04-12 11:08 | IPN ---
DATE OF SERVICE: 04/12/2019 Madonna is seen in [facility]. She was admitted with a flare of Crohn disease and looks to have fistulas developing in the perirectal area, as well as a stricture in the transverse colon. She has history of traumatic brain injury with cognitive dysfunction which limits decision-making. Her sales agent business services is Dr. Lemus. There was no GI coverage yesterday or through the weekend. So, we are essentially at a standstill as far as advancing her care. PHYSICAL EXAMINATION: 123/75, afebrile. General appearance: Elderly, frail, resting comfortably, visiting with her niece. Lungs clear. Heart: Regular rate and rhythm. Abdomen: Soft, diffusely mildly tender. No peripheral edema. LABORATORIES: White count is down to 9, potassium is only 2.7. IMPRESSION: 1. Crohn disease with fistula tracts noted on CT scan and protein-calorie malnutrition noted through low albumin and outpatient weight loss. PLAN: At this point, we need a sales agent business services. There was none available yesterday or through the weekend, which she is essentially in a holding pattern until she can be seen by GI. In the meantime, will continue to provide Flagyl 500 intravenous (IV) every 8 hours and try to support her nutrition. She is also on IV steroids, 60 mg of Solu-Medrol a day. 2. Hypokalemia. IV and oral potassium has been ordered. 3. Hypomagnesemia. She had a magnesium run yesterday. Order followup level tomorrow. 4. Diabetes. Sliding scale insulin coverage ordered. 5. Depression. Continue her sertraline 25 mg daily. Prognosis is poor unless we can get her aggressive GI care. She may end up needing transfer to a higher level of care for colorectal surgery, but I need the input of gastroenterology before we can see if that is necessary.
[2019-04-12 14:00] VITALS: BP 127/79
[2019-04-12 22:00] VITALS: BP 118/75
[2019-04-13] MEDS: LOPERAMIDE 2 MG CAPLET PO PRN (03:57)
[2019-04-13] MEDS: methylPREDNISolone INJ 125 MG/2 ML VIAL (J2930) IV SCH (03:57)
[2019-04-13] MEDS: metroNIDAZOLE 500 MG in IV 1 EA IV SCH ×3 (03:58→20:41)
[2019-04-13 06:00] VITALS: BP 117/74
[2019-04-13 07:04] LABS: HEMATOCRIT 37.6 % (36.0-47.0); HEMOGLOBIN 11.8 g/dl (12.0-15.5); MEAN CORPUSCULAR HEMOGLOBIN 29.1 pg (27.0-33.0); MEAN CORPUSCULAR HGB CONC 31.4 g/dl (32.0-36.5); MEAN CORPUSCULAR VOLUME 92.6 fl (80.0-96.0); PLATELET COUNT, AUTOMATED 390 10^3/uL (150-450); RED BLOOD COUNT 4.06 10^6/uL (4.00-5.40); WHITE BLOOD COUNT 8.7 10^3/uL (4.0-10.0)
[2019-04-13] MEDS: HumaLOG INSULIN (NovoLOG) PER UNIT SC SCH ×4 (07:30→21:00)
[2019-04-13 07:50] LABS: ALBUMIN 2.2 GM/DL (3.2-5.2); ALT/SGPT 14 U/L (12-78); BILIRUBIN,TOTAL 0.2 MG/DL (0.2-1.0); BLOOD UREA NITROGEN 6 MG/DL (7-18); CALCIUM LEVEL 8.5 MG/DL (8.8-10.2); CARBON DIOXIDE LEVEL 26 MEQ/L (21-32); CHLORIDE LEVEL 104 MEQ/L (98-107); GLOMERULAR FILTRATION RATE > 60.0 (>45); GLUCOSE, FASTING 152 MG/DL (70-100); MAGNESIUM LEVEL 1.8 MG/DL (1.8-2.4); POTASSIUM SERUM 4.2 MEQ/L (3.5-5.1); SODIUM LEVEL 136 MEQ/L (136-145); TOTAL PROTEIN 6.4 GM/DL (6.4-8.2)
[2019-04-13] MEDS: ENOXAPARIN 40 MG/0.4 ML SYRINGE (J1650) SC SCH (07:59)
[2019-04-13] MEDS: OMEPRAZOLE 20 MG CAP PO SCH (08:00)
[2019-04-13] MEDS: SERTRALINE HCL 25 MG TABLET PO SCH (08:00)
[2019-04-13] MEDS: FERROUS SULFATE 325MG TAB PO SCH (08:00)
[2019-04-13 14:00] VITALS: BP 130/80
--- NOTE | 2019-04-13 17:13 | IPN ---
DATE: 04/13/2019 Madonna is about the same as yesterday. No fever or chills. She still has perirectal pain. PHYSICAL EXAMINATION: Afebrile, vital signs stable. LUNGS: Clear. HEART: Regular rate and rhythm. ABDOMEN: Soft, nontender. LABORATORY DATA: White count is down to 8.7. Potassium is up to 3.2. Renal function is stable. IMPRESSION: Crohn's disease with fistula tracts. PLAN: Continue her intravenous (IV) Flagyl, IV steroids and wait for gastroenterology to be available. She sees Dr. Lemus as an outpatient.
[2019-04-13 22:00] VITALS: BP 126/68
[2019-04-14] MEDS: methylPREDNISolone INJ 125 MG/2 ML VIAL (J2930) IV SCH (03:55)
[2019-04-14] MEDS: metroNIDAZOLE 500 MG in IV 1 EA IV SCH ×3 (03:55→19:40)
[2019-04-14 06:00] VITALS: BP 131/70
[2019-04-14 06:56] LABS: HEMATOCRIT 36.7 % (36.0-47.0); MEAN CORPUSCULAR HEMOGLOBIN 29.9 pg (27.0-33.0); MEAN CORPUSCULAR HGB CONC 32.7 g/dl (32.0-36.5); MEAN CORPUSCULAR VOLUME 91.3 fl (80.0-96.0); PLATELET COUNT, AUTOMATED 453 10^3/uL (150-450); RED BLOOD COUNT 4.02 10^6/uL (4.00-5.40); WHITE BLOOD COUNT 13.1 10^3/uL (4.0-10.0)
[2019-04-14 07:10] LABS: BLOOD UREA NITROGEN 9 MG/DL (7-18); CALCIUM LEVEL 8.4 MG/DL (8.8-10.2); CARBON DIOXIDE LEVEL 28 MEQ/L (21-32); CHLORIDE LEVEL 102 MEQ/L (98-107); CREATININE FOR GFR 0.58 MG/DL (0.55-1.30); GLOMERULAR FILTRATION RATE > 60.0 (>45); GLUCOSE, FASTING 155 MG/DL (70-100); POTASSIUM SERUM 3.6 MEQ/L (3.5-5.1); SODIUM LEVEL 137 MEQ/L (136-145)
[2019-04-14] MEDS: HumaLOG INSULIN (NovoLOG) PER UNIT SC SCH ×4 (07:24→21:00)
[2019-04-14] MEDS: SERTRALINE HCL 25 MG TABLET PO SCH (08:18)
[2019-04-14] MEDS: FERROUS SULFATE 325MG TAB PO SCH (08:18)
[2019-04-14] MEDS: OMEPRAZOLE 20 MG CAP PO SCH (08:18)
[2019-04-14] MEDS: ENOXAPARIN 40 MG/0.4 ML SYRINGE (J1650) SC SCH (08:19)
--- NOTE | 2019-04-14 10:44 | IPN ---
DATE: 04/14/2019 Madonna is resting comfortably, feeling well, with no changes. I did get a hold of Dr. Chong Lemus today. He is available for consultation. We discussed the case. He agreed to see the patient in consultation. He pointed out, through records that are unavailable to us in the hospital, this patient has been on biologic therapy in the past, but her cognitive dysfunction has led to significant problems with noncompliance. Blood pressure 130/70. Pulse 68. Respiratory rate 18. 100% oxygen saturation. General Appearance: Alert, conversant, in no distress. Lungs: Clear. Heart: Regular rhythm. Abdomen soft. Minimally tender. No peripheral edema. LABS: Electrolytes unremarkable. White count 13.1, up from previous. Albumin is down to 2.2. IMPRESSION: 1. Crohn disease with fistula tracts noted on CT scan. She will continue on IV Flagyl. Continue with steroid therapy. Dr. Lemus will be seeing her today and make recommendations as far as where to go from here. She probably needs referral to a colorectal surgeon. Would recommend Dr. Gonzalez in [place]. 2. Protein calorie malnutrition. Nutritional supplements ordered. 3. Electrolyte disturbance, including hypomagnesemia and hypokalemia. These have resolved with appropriate replacement.
[2019-04-14 14:00] VITALS: BP 119/76
[2019-04-14] MEDS: LOPERAMIDE 2 MG CAPLET PO PRN (15:53)
[2019-04-14 22:00] VITALS: BP 116/72
[2019-04-15] MEDS: metroNIDAZOLE 500 MG in IV 1 EA IV SCH ×3 (03:12→20:08)
[2019-04-15] MEDS: methylPREDNISolone INJ 125 MG/2 ML VIAL (J2930) IV SCH (03:12)
[2019-04-15 06:00] VITALS: BP 121/70
[2019-04-15 06:18] LABS: HEMATOCRIT 36.5 % (36.0-47.0); HEMOGLOBIN 11.9 g/dl (12.0-15.5); MEAN CORPUSCULAR HGB CONC 32.6 g/dl (32.0-36.5); MEAN CORPUSCULAR VOLUME 91.9 fl (80.0-96.0); PLATELET COUNT, AUTOMATED 428 10^3/uL (150-450); RED BLOOD COUNT 3.97 10^6/uL (4.00-5.40)
[2019-04-15 06:38] LABS: BLOOD UREA NITROGEN 13 MG/DL (7-18); CALCIUM LEVEL 8.5 MG/DL (8.8-10.2); CARBON DIOXIDE LEVEL 30 MEQ/L (21-32); CHLORIDE LEVEL 100 MEQ/L (98-107); CREATININE FOR GFR 0.58 MG/DL (0.55-1.30); GLOMERULAR FILTRATION RATE > 60.0 (>45); GLUCOSE, FASTING 169 MG/DL (70-100); POTASSIUM SERUM 3.3 MEQ/L (3.5-5.1); SODIUM LEVEL 136 MEQ/L (136-145)
[2019-04-15] MEDS: HumaLOG INSULIN (NovoLOG) PER UNIT SC SCH ×4 (07:52→20:10)
[2019-04-15] MEDS: SERTRALINE HCL 25 MG TABLET PO SCH (07:58)
[2019-04-15] MEDS: FERROUS SULFATE 325MG TAB PO SCH (07:58)
[2019-04-15] MEDS: ENOXAPARIN 40 MG/0.4 ML SYRINGE (J1650) SC SCH (07:59)
[2019-04-15] MEDS: OMEPRAZOLE 20 MG CAP PO SCH (07:59)
[2019-04-15] MEDS ORDERED: POTASSIUM CHLORIDE 10 MEQ SR TABLET PO ONE (08:00)
[2019-04-15] MEDS: KCL 10MEQ/100ML SWI (KRUN) 10 MEQ in IV 1 EA IV SCH ×2 (08:04→09:00)
--- NOTE | 2019-04-15 10:51 | IPNPDOC ---
Subjective Date Seen The patient was seen on 04/15/19. Subjective Chief Complaint/HPI diarrhea Constitutional: Reports: Weakness Gastrointestinal: Reports: Diarrhea Objective Physical Examination Abdomen Exam: Positive: Tenderness (b/l LQ ) Assessment /Plan Assessment 1. Crohn disease with fistula tracts noted on CT scan - continue IV flagyl, steroids. - seen by surgery Dr. Herrera, no intervention. - awaiting recommendations from GI Dr. Lemus. 2. protein calorie malnutrition - nutrition supplements. 3. hypokalemia - supplement PO, monitor. 4. DVT ppx - lovenox. Plan/VTE VTE Prophylaxis Ordered?: Yes VS, I&O, 24H, Fishbone Vital Signs/I&O Vital Signs Date Time Temp Pulse Resp B/P (MAP) Pulse Ox O2 Delivery O2 Flow Rate FiO2 04/15/19 06:00 96.7 66 18 121/70 (87) 95 Room Air I&O- Last 24 Hours up to 6 AM 04/15/19 06:00 Intake Total 1890 ml Output Total 0 ml Balance 1890 ml Laboratory Data 24H LABS Laboratory Tests 2 04/14/19 11:27: Bedside Glucose (Misc Panel) 167H 04/14/19 16:46: Bedside Glucose (Misc Panel) 149H 04/14/19 20:59: Bedside Glucose (Misc Panel) 154H 04/15/19 05:35: Nucleated Red Blood Cells % (auto) 0.0, Anion Gap 6L, Glomerular Filtration Rate > 60.0, Calcium Level 8.5L CBC/BMP Laboratory Tests 04/15/19 05:35 Microbiology Microbiology 04/09/19 Blood Culture - Final, Complete NO GROWTH AFTER 5 DAYS 04/09/19 Blood Culture - Final, Complete NO GROWTH AFTER 5 DAYS 04/09/19 Gastrointestinal Tract Panel (PCR) - Final, Complete CRYSTAL GARIBAY MD Apr 15, 2019 10:51
[2019-04-15 14:00] VITALS: BP 120/67
[2019-04-15] MEDS: LOPERAMIDE 2 MG CAPLET PO PRN (18:05)
--- NOTE | 2019-04-15 21:50 | CR ---
DATE OF CONSULTATION: 04/14/2019 A 63-year-old white female who was admitted through the emergency room for worsening diarrhea and lower abdominal pain. The patient has a longstanding history of Crohn's disease and has been treated with Entyvio infusions. She has a known history of traumatic brain injury, has extreme difficulty in maintaining her memory and of providing a history. She was found at home with stool throughout her residence. She lives next door to her daughter. It unclear whether she has been receiving help from the family. No complaints of melena, but she does have occasional rectal bleeding. Review of the patient's records apparently showed she has had at least 6-9 infusions, it is unclear, of Entyvio. If this is true, then the patient has failed medical treatment. She is being seen now by gastroenterology for evaluation of what is next for her. REVIEW OF SYSTEMS: Noncontributory to the above problem. PAST MEDICAL HISTORY: Positive for: 1. Crohn's disease. 2. Gastroesophageal reflux disease (GERD). 3. Type 2 diabetes. 4. Traumatic brain injury. 5. Depression. 6. Anemia. PAST SURGICAL HISTORY: 1. Multiple bowel resections. 2. Hysterectomy. SOCIAL HISTORY: 1. Former smoker. 2. No alcohol. 3. No intravenous (IV) drug abuse. FAMILY HISTORY: Noncontributory. 12-point review of systems is noncontributory to the above problem. PHYSICAL EXAMINATION: General: Well-developed, well-nourished white female in no obvious acute distress. Appears stated age. Chest is clear. Cardiovascular Exam: Showed a regular rhythm. No murmurs or gallops. Normal physiological split, S1, S2. Abdomen: Soft, nontender. No masses, guarding, rebound hepatosplenomegaly. Bowel sounds are positive. ANALYSIS: Refractory Crohn's disease. At the present time, the patient has been on Entyvio for the last year. It is unclear whether she actually has been compliant, but reviewing the hospital records, it appears that she has had 6 to 7 infusions of Entyvio every few months. She has had a previous colonoscopy in, I believe, February 2017, which showed severe ulcerations and inflammation of the rectosigmoid colon with pseudopolyps and aphthous ulcers. The rectal area was severely inflamed. She was then subsequently started on Entyvio due to the endoscopic findings. The patient's inflammation was mostly located in the rectosigmoid colon and her anastomosis. Biopsies were negative for any dysplasia or malignancy. The patient has had imaging studies on this admission, which includes an abdominal CT which shows significant pathology, specifically persistent wall thickening of the distal sigmoid and rectosigmoid colon, which is consistent with endoscopic findings of 2017. She also has three sinus tracts in the rectum, and she has a nonobstructing stricture in the transverse colon. PLAN: In light of the x-ray findings, plan will be to recommend the patient be referred to the colorectal surgeon in [place] for bowel resection and either ileostomy or colostomy. The patient did not do well with the Entyvio and the rectum is severely inflamed and now she has sinus tracts, which may be short serving her bowel and causing her to have increased diarrhea. There is no other treatment at this point that we can offer here at [facility] to reverse her inflammation and ulceration to the rectosigmoid area.
[2019-04-15 22:00] VITALS: BP 114/65
[2019-04-16] MEDS: methylPREDNISolone INJ 125 MG/2 ML VIAL (J2930) IV SCH (03:29)
[2019-04-16] MEDS: metroNIDAZOLE 500 MG in IV 1 EA IV SCH ×3 (03:30→20:50)
[2019-04-16 06:00] VITALS: BP 122/65
[2019-04-16 06:17] LABS: HEMATOCRIT 37.4 % (36.0-47.0); HEMOGLOBIN 11.5 g/dl (12.0-15.5); MEAN CORPUSCULAR HEMOGLOBIN 29.2 pg (27.0-33.0); MEAN CORPUSCULAR HGB CONC 30.7 g/dl (32.0-36.5); MEAN CORPUSCULAR VOLUME 94.9 fl (80.0-96.0); PLATELET COUNT, AUTOMATED 391 10^3/uL (150-450); RED BLOOD COUNT 3.94 10^6/uL (4.00-5.40); WHITE BLOOD COUNT 13.1 10^3/uL (4.0-10.0)
[2019-04-16 06:42] LABS: BLOOD UREA NITROGEN 15 MG/DL (7-18); CALCIUM LEVEL 8.3 MG/DL (8.8-10.2); CARBON DIOXIDE LEVEL 32 MEQ/L (21-32); CHLORIDE LEVEL 103 MEQ/L (98-107); CREATININE FOR GFR 0.56 MG/DL (0.55-1.30); GLOMERULAR FILTRATION RATE > 60.0 (>45); GLUCOSE, FASTING 164 MG/DL (70-100); POTASSIUM SERUM 4.3 MEQ/L (3.5-5.1); SODIUM LEVEL 140 MEQ/L (136-145)
[2019-04-16] MEDS: ENOXAPARIN 40 MG/0.4 ML SYRINGE (J1650) SC SCH (10:35)
[2019-04-16] MEDS: SERTRALINE HCL 25 MG TABLET PO SCH (10:36)
[2019-04-16] MEDS: OMEPRAZOLE 20 MG CAP PO SCH (10:36)
[2019-04-16] MEDS: HumaLOG INSULIN (NovoLOG) PER UNIT SC SCH ×4 (10:36→20:44)
[2019-04-16] MEDS: FERROUS SULFATE 325MG TAB PO SCH (10:36)
--- NOTE | 2019-04-16 12:09 | IPNPDOC ---
Subjective Date Seen The patient was seen on 04/16/19. Subjective Chief Complaint/HPI diarrhea Objective Physical Examination Abdomen Exam: Positive: Tenderness (b/l LQ ) Assessment /Plan Assessment 1. Crohn disease with fistula tracts noted on CT scan - continue IV flagyl, steroids. - seen by surgery Dr. Herrera, no intervention. - seen by GI Dr. Lemus, plan for referral to surgery at [place] for bowel resection/ileostomy or colostomy. 2. protein calorie malnutrition - nutrition supplements. 3. hypokalemia - supplement PO, monitor. 4. DVT ppx - lovenox. Plan/VTE VTE Prophylaxis Ordered?: Yes VS, I&O, 24H, Fishbone Vital Signs/I&O Vital Signs Date Time Temp Pulse Resp B/P (MAP) Pulse Ox O2 Delivery O2 Flow Rate FiO2 04/16/19 06:00 97.4 69 16 122/65 (84) 97 Room Air I&O- Last 24 Hours up to 6 AM 04/16/19 06:00 Intake Total 1830 ml Output Total 0 ml Balance 1830 ml Laboratory Data 24H LABS Laboratory Tests 2 04/15/19 16:59: Bedside Glucose (Misc Panel) 168H 04/15/19 20:09: Bedside Glucose (Misc Panel) 189H 04/16/19 05:34: Nucleated Red Blood Cells % (auto) 0.0, Anion Gap 5L, Glomerular Filtration Rate > 60.0, Calcium Level 8.3L 04/16/19 11:31: Bedside Glucose (Misc Panel) 359H CBC/BMP Laboratory Tests 04/16/19 05:34 Microbiology Microbiology 04/09/19 Blood Culture - Final, Complete NO GROWTH AFTER 5 DAYS 04/09/19 Blood Culture - Final, Complete NO GROWTH AFTER 5 DAYS 04/09/19 Gastrointestinal Tract Panel (PCR) - Final, Complete CRYSTAL GARIBAY MD Apr 16, 2019 12:09
[2019-04-16 14:00] VITALS: BP 130/76
[2019-04-16 22:00] VITALS: BP 136/65
[2019-04-17] MEDS: metroNIDAZOLE 500 MG in IV 1 EA IV SCH ×3 (03:34→20:23)
[2019-04-17] MEDS: methylPREDNISolone INJ 125 MG/2 ML VIAL (J2930) IV SCH (03:34)
[2019-04-17 06:00] VITALS: BP 133/66
[2019-04-17 06:52] LABS: HEMATOCRIT 37.8 % (36.0-47.0); HEMOGLOBIN 12.1 g/dl (12.0-15.5); MEAN CORPUSCULAR HEMOGLOBIN 29.6 pg (27.0-33.0); MEAN CORPUSCULAR VOLUME 92.4 fl (80.0-96.0); PLATELET COUNT, AUTOMATED 392 10^3/uL (150-450); RED BLOOD COUNT 4.09 10^6/uL (4.00-5.40); WHITE BLOOD COUNT 12.6 10^3/uL (4.0-10.0)
[2019-04-17 07:10] LABS: BLOOD UREA NITROGEN 12 MG/DL (7-18); CALCIUM LEVEL 8.4 MG/DL (8.8-10.2); CARBON DIOXIDE LEVEL 32 MEQ/L (21-32); CHLORIDE LEVEL 102 MEQ/L (98-107); CREATININE FOR GFR 0.52 MG/DL (0.55-1.30); GLOMERULAR FILTRATION RATE > 60.0 (>45); GLUCOSE, FASTING 174 MG/DL (70-100); POTASSIUM SERUM 3.8 MEQ/L (3.5-5.1); SODIUM LEVEL 139 MEQ/L (136-145)
[2019-04-17] MEDS: ENOXAPARIN 40 MG/0.4 ML SYRINGE (J1650) SC SCH (08:51)
[2019-04-17] MEDS: FERROUS SULFATE 325MG TAB PO SCH (08:51)
[2019-04-17] MEDS: SERTRALINE HCL 25 MG TABLET PO SCH (08:51)
[2019-04-17] MEDS: HumaLOG INSULIN (NovoLOG) PER UNIT SC SCH ×4 (08:51→21:00)
[2019-04-17] MEDS: OMEPRAZOLE 20 MG CAP PO SCH (08:51)
--- NOTE | 2019-04-17 11:41 | IPNPDOC ---
Subjective Date Seen The patient was seen on 04/17/19. Subjective Chief Complaint/HPI seen and examined at bedside, awake and appears comfortable. Denies cp/pressure, n/v, shortness of breath, fever/chills. General: Reports: Fatigue Constitutional: Reports: Weakness Objective Physical Examination Abdomen Exam: Positive: Tenderness (b/l LQ ) Assessment /Plan Assessment 1. Crohn disease with fistula tracts noted on CT scan - continue IV flagyl, steroids. - seen by surgery Dr. Herrera, no intervention. - seen by GI Dr. Lemus, plan for referral to CR surgery at [place] for bowel resection/ileostomy or colostomy. - discussed at length with patient regarding need to see CR surgery, patient stating "I don't want surgery right now". Stressed the need to be at least seen by CR at [place] and then make her decision regarding same. Patient agreeable to this. Son to be notified regarding same. 2. protein calorie malnutrition - nutrition supplements. 3. hypokalemia - monitor. 4. DVT ppx - lovenox. Plan/VTE VTE Prophylaxis Ordered?: Yes VS, I&O, 24H, Fishbone Vital Signs/I&O Vital Signs Date Time Temp Pulse Resp B/P (MAP) Pulse Ox O2 Delivery O2 Flow Rate FiO2 04/17/19 06:00 98.3 71 18 133/66 (88) 98 Room Air I&O- Last 24 Hours up to 6 AM 04/17/19 06:00 Intake Total 960 ml Output Total 0 ml Balance 960 ml Laboratory Data 24H LABS Laboratory Tests 2 04/16/19 16:40: Bedside Glucose (Misc Panel) 147H 04/16/19 20:17: Bedside Glucose (Misc Panel) 219H 04/17/19 06:31: Nucleated Red Blood Cells % (auto) 0.0, Anion Gap 5L, Glomerular Filtration Rate > 60.0, Calcium Level 8.4L 04/17/19 11:25: Bedside Glucose (Misc Panel) 312H CBC/BMP Laboratory Tests 04/17/19 06:31 Microbiology Microbiology 04/09/19 Blood Culture - Final, Complete NO GROWTH AFTER 5 DAYS 04/09/19 Blood Culture - Final, Complete NO GROWTH AFTER 5 DAYS 04/09/19 Gastrointestinal Tract Panel (PCR) - Final, Complete CRYSTAL GARIBAY MD Apr 17, 2019 11:41
[2019-04-17 22:00] VITALS: BP 130/74
[2019-04-18] MEDS: methylPREDNISolone INJ 125 MG/2 ML VIAL (J2930) IV SCH (03:36)
[2019-04-18] MEDS: metroNIDAZOLE 500 MG in IV 1 EA IV SCH (03:37)
[2019-04-18 06:00] VITALS: BP 130/75
[2019-04-18 06:36] LABS: HEMATOCRIT 38.1 % (36.0-47.0); HEMOGLOBIN 11.9 g/dl (12.0-15.5); MEAN CORPUSCULAR HEMOGLOBIN 29.2 pg (27.0-33.0); MEAN CORPUSCULAR HGB CONC 31.2 g/dl (32.0-36.5); MEAN CORPUSCULAR VOLUME 93.4 fl (80.0-96.0); PLATELET COUNT, AUTOMATED 359 10^3/uL (150-450); RED BLOOD COUNT 4.08 10^6/uL (4.00-5.40)
[2019-04-18 07:03] LABS: BLOOD UREA NITROGEN 12 MG/DL (7-18); CALCIUM LEVEL 8.5 MG/DL (8.8-10.2); CARBON DIOXIDE LEVEL 30 MEQ/L (21-32); CHLORIDE LEVEL 100 MEQ/L (98-107); CREATININE FOR GFR 0.62 MG/DL (0.55-1.30); GLOMERULAR FILTRATION RATE > 60.0 (>45); GLUCOSE, FASTING 194 MG/DL (70-100); POTASSIUM SERUM 3.7 MEQ/L (3.5-5.1); SODIUM LEVEL 137 MEQ/L (136-145)
[2019-04-18] MEDS: SERTRALINE HCL 25 MG TABLET PO SCH (07:36)
[2019-04-18] MEDS: FERROUS SULFATE 325MG TAB PO SCH (07:36)
[2019-04-18] MEDS: HumaLOG INSULIN (NovoLOG) PER UNIT SC SCH ×4 (07:36→21:17)
[2019-04-18] MEDS: ENOXAPARIN 40 MG/0.4 ML SYRINGE (J1650) SC SCH (07:36)
[2019-04-18] MEDS: OMEPRAZOLE 20 MG CAP PO SCH (07:36)
[2019-04-18] MEDS: predniSONE 20 MG TAB PO SCH (12:06)
[2019-04-18] MEDS: metroNIDAZOLE (FLAGYL) 500 MG TAB PO SCH ×2 (13:15→21:15)
[2019-04-18 14:00] VITALS: BP 130/75
--- NOTE | 2019-04-18 16:14 | IPNPDOC ---
Subjective Date Seen The patient was seen on 04/18/19. Subjective Chief Complaint/HPI seen and examined at bedside, no complaints. General: Reports: Normal Appetite; Denies: Chills, Night Sweats, Fatigue, Malaise Objective Physical Examination General Exam: Positive: Alert, No Acute Distress Assessment /Plan Assessment 1. Crohn disease with fistula tracts noted on CT scan - PO flagyl/steroids. - seen by surgery Dr. Herrera, no intervention. - seen by GI Dr. Lemus, plan for referral to CR surgery at [place] for seth wel resection/ileostomy or colostomy. - discussed at length with patient regarding need to see CR surgery, patient stating "I don't want surgery right now". Stressed the need to be at least seen by CR at [place] and then make her decision regarding same. Son has been contacted, SW working on placement. 2. protein calorie malnutrition - nutrition supplements. 3. hypokalemia - resolved, monitor. 4. DVT ppx - lovenox. Plan/VTE VTE Prophylaxis Ordered?: Yes VS, I&O, 24H, Fishbone Vital Signs/I&O Vital Signs Date Time Temp Pulse Resp B/P (MAP) Pulse Ox O2 Delivery O2 Flow Rate FiO2 04/18/19 06:00 98.5 77 18 130/75 (93) 95 Room Air I&O- Last 24 Hours up to 6 AM 04/18/19 06:00 Intake Total 1580 ml Output Total 0 ml Balance 1580 ml Laboratory Data 24H LABS Laboratory Tests 2 04/17/19 17:11: Bedside Glucose (Misc Panel) 177H 04/17/19 21:34: Bedside Glucose (Misc Panel) 195H 04/18/19 06:19: Nucleated Red Blood Cells % (auto) 0.0, Anion Gap 7L, Glomerular Filtration Rate > 60.0, Calcium Level 8.5L CBC/BMP Laboratory Tests 04/18/19 06:19 Microbiology Microbiology 04/09/19 Blood Culture - Final, Complete NO GROWTH AFTER 5 DAYS 04/09/19 Blood Culture - Final, Complete NO GROWTH AFTER 5 DAYS 04/09/19 Gastrointestinal Tract Panel (PCR) - Final, Complete CRYSTAL GARIBAY MD Apr 18, 2019 11:27
[2019-04-18 22:00] VITALS: BP 129/74
[2019-04-19] MEDS: metroNIDAZOLE (FLAGYL) 500 MG TAB PO SCH ×3 (05:14→21:22)
[2019-04-19 06:00] VITALS: BP 126/72
[2019-04-19 06:14] LABS: HEMATOCRIT 36.7 % (36.0-47.0); HEMOGLOBIN 11.3 g/dl (12.0-15.5); MEAN CORPUSCULAR HEMOGLOBIN 28.8 pg (27.0-33.0); MEAN CORPUSCULAR HGB CONC 30.8 g/dl (32.0-36.5); MEAN CORPUSCULAR VOLUME 93.4 fl (80.0-96.0); PLATELET COUNT, AUTOMATED 340 10^3/uL (150-450); RED BLOOD COUNT 3.93 10^6/uL (4.00-5.40); WHITE BLOOD COUNT 10.7 10^3/uL (4.0-10.0)
[2019-04-19 06:28] LABS: BLOOD UREA NITROGEN 12 MG/DL (7-18); CALCIUM LEVEL 8.4 MG/DL (8.8-10.2); CARBON DIOXIDE LEVEL 33 MEQ/L (21-32); CHLORIDE LEVEL 99 MEQ/L (98-107); CREATININE FOR GFR 0.56 MG/DL (0.55-1.30); GLOMERULAR FILTRATION RATE > 60.0 (>45); GLUCOSE, FASTING 120 MG/DL (70-100); POTASSIUM SERUM 3.6 MEQ/L (3.5-5.1); SODIUM LEVEL 136 MEQ/L (136-145)
[2019-04-19] MEDS: HumaLOG INSULIN (NovoLOG) PER UNIT SC SCH ×4 (08:20→21:00)
[2019-04-19] MEDS: OMEPRAZOLE 20 MG CAP PO SCH (08:20)
[2019-04-19] MEDS: FERROUS SULFATE 325MG TAB PO SCH (08:21)
[2019-04-19] MEDS: ENOXAPARIN 40 MG/0.4 ML SYRINGE (J1650) SC SCH (08:21)
[2019-04-19] MEDS: SERTRALINE HCL 25 MG TABLET PO SCH (08:21)
[2019-04-19] MEDS: predniSONE 20 MG TAB PO SCH (08:21)
--- NOTE | 2019-04-19 12:04 | IPNPDOC ---
Subjective Date Seen The patient was seen on 04/19/19. Subjective Chief Complaint/HPI seen and examined at bedside, no new complaints. General: Reports: Normal Appetite; Denies: Chills, Night Sweats, Fatigue, Malaise Constitutional: Denies: Chills, Fever, Night Sweats Eyes: Denies: Pain, Vision change ENT: Denies: Head Aches, Ear Pain, Dysphagia Skin: Denies: Rash, Lesions, Breakdown Pulmonary: Denies: Dyspnea, Cough Cardiovascular: Denies: Chest Pain, Palpitations, Orthopnea, Paroxysmal Noc. Dyspnea, Lt Headedness Gastrointestinal: Denies: Nausea, Vomiting, Abdominal Pain, Diarrhea, Constipation Genitourinary: Denies: Dysuria, Frequency, Incontinence, Retention Hematologic: Denies: Bruising, Bleeding Excessively Musculoskeletal: Denies: Neck Pain, Back Pain, Joint Pain, Muscle Pain, Spasms Neurological: Denies: Weakness, Numbness, Change in speech, Confusion Psych: Reports: Mood Normal; Denies: Depression, Memory Issues Objective Physical Examination General Exam: Positive: Alert, No Acute Distress Eye Exam: Positive: PERRLA, Conjunctiva & lids normal, EOMI; Negative: Sclera icteric ENT Exam: Positive: Atraumatic, Mucous membr. moist/pink, Pharynx Normal Neck Exam: Positive: Supple; Negative: JVD, thyromegaly Chest Exam: Positive: Clear to auscultation, Normal air movement Heart Exam: Positive: Rate Normal, Regular Rhythm, Normal S1, Normal S2; Negative: Murmurs, Rubs Telemetry: Positive: No significant arrhythmia Abdomen Exam: Positive: Normal bowel sounds, Soft; Negative: Tenderness, Hepatospenomegaly Female Exam: Positive: Nl Ext Genitalia; Negative: Lesions, Discharge, Odor, Tenderness Extremity Exam: Positive: Normal pulses; Negative: Clubbing, Cyanosis, Edema Skin Exam: Positive: Nl turgor and temperature; Negative: Rash, Breakdown Neuro Exam: Positive: Normal Gait, Normal Speech, Cranial Nerves 3-12 NL, Reflexes 2+ Psych Exam: Positive: Mental status NL, Mood NL, Oriented x 3 Assessment /Plan Assessment 1. Crohn disease with fistula tracts noted on CT scan - PO flagyl/steroids. - seen by surgery Dr. Herrera, no intervention. - seen by GI Dr. Lemus, plan for referral to CR surgery at [place] for bowel resection/ileostomy or colostomy. - discussed at length with patient regarding need to see CR surgery, patient stating "I don't want surgery right now". Stressed the need to be at least seen by CR at [place] and then make her decision regarding same. Son has been contacted, unsafe discharge home, SW working on placement. 2. protein calorie malnutrition - nutrition supplements. 3. hypokalemia - resolved, monitor. 4. DVT ppx - lovenox. Plan/VTE VTE Prophylaxis Ordered?: Yes VS, I&O, 24H, Fishbone Vital Signs/I&O Vital Signs Date Time Temp Pulse Resp B/P (MAP) Pulse Ox O2 Delivery O2 Flow Rate FiO2 04/19/19 06:00 98.4 74 17 126/72 (90) 95 Room Air I&O- Last 24 Hours up to 6 AM 04/19/19 06:00 Intake Total 350 ml Balance 350 ml Laboratory Data 24H LABS Laboratory Tests 2 04/18/19 16:46: Bedside Glucose (Misc Panel) 326H 04/18/19 21:11: Bedside Glucose (Misc Panel) 269H 04/19/19 05:48: Nucleated Red Blood Cells % (auto) 0.0, Anion Gap 4L, Glomerular Filtration Rate > 60.0, Calcium Level 8.4L CBC/BMP Laboratory Tests 04/19/19 05:48 Microbiology Microbiology 04/09/19 Blood Culture - Final, Complete NO GROWTH AFTER 5 DAYS 04/09/19 Blood Culture - Final, Complete NO GROWTH AFTER 5 DAYS 04/09/19 Gastrointestinal Tract Panel (PCR) - Final, Complete CRYSTAL GARIBAY MD Apr 19, 2019 12:04
[2019-04-19 14:00] VITALS: BP 105/65
[2019-04-19 22:00] VITALS: BP 128/69
[2019-04-20 06:00] VITALS: BP 127/71
[2019-04-20] MEDS: metroNIDAZOLE (FLAGYL) 500 MG TAB PO SCH ×3 (06:12→21:00)
[2019-04-20] MEDS: HumaLOG INSULIN (NovoLOG) PER UNIT SC SCH ×4 (07:13→21:00)
[2019-04-20] MEDS: predniSONE 20 MG TAB PO SCH (09:15)
[2019-04-20] MEDS: FERROUS SULFATE 325MG TAB PO SCH (09:15)
[2019-04-20] MEDS: OMEPRAZOLE 20 MG CAP PO SCH (09:15)
[2019-04-20] MEDS: SERTRALINE HCL 25 MG TABLET PO SCH (09:15)
[2019-04-20] MEDS: ENOXAPARIN 40 MG/0.4 ML SYRINGE (J1650) SC SCH (09:16)
--- NOTE | 2019-04-20 10:12 | IPNPDOC ---
Subjective Date Seen The patient was seen on 04/20/19. Subjective Chief Complaint/HPI seen and examined at bedside, no issues overnight, denies cp/pressure, sob, n/v/d, abdominal pain. General: Reports: Normal Appetite; Denies: Chills, Night Sweats, Fatigue, Malaise Constitutional: Denies: Chills, Fever, Night Sweats Eyes: Denies: Pain, Vision change ENT: Denies: Head Aches, Ear Pain, Dysphagia Skin: Denies: Rash, Lesions, Breakdown Pulmonary: Denies: Dyspnea, Cough Cardiovascular: Denies: Chest Pain, Palpitations, Orthopnea, Paroxysmal Noc. Dyspnea, Lt Headedness Gastrointestinal: Denies: Nausea, Vomiting, Abdominal Pain, Diarrhea, Constipa tion Genitourinary: Denies: Dysuria, Frequency, Incontinence, Retention Hematologic: Denies: Bruising, Bleeding Excessively Musculoskeletal: Denies: Neck Pain, Back Pain, Joint Pain, Muscle Pain, Spasms Neurological: Denies: Weakness, Numbness, Change in speech, Confusion Psych: Reports: Mood Normal; Denies: Depression, Memory Issues Objective Physical Examination General Exam: Positive: Alert, No Acute Distress Eye Exam: Positive: PERRLA, Conjunctiva & lids normal, EOMI; Negative: Sclera icteric ENT Exam: Positive: Atraumatic, Mucous membr. moist/pink, Pharynx Normal Neck Exam: Positive: Supple; Negative: JVD, thyromegaly Chest Exam: Positive: Clear to auscultation, Normal air movement Heart Exam: Positive: Rate Normal, Regular Rhythm, Normal S1, Normal S2; Negative: Murmurs, Rubs Telemetry: Positive: No significant arrhythmia Abdomen Exam: Positive: Normal bowel sounds, Soft; Negative: Tenderness, Hepatospenomegaly Female Exam: Positive: Nl Ext Genitalia; Negative: Lesions, Discharge, Odor, Tenderness Extremity Exam: Positive: Normal pulses; Negative: Clubbing, Cyanosis, Edema Skin Exam: Positive: Nl turgor and temperature; Negative: Rash, Breakdown Neuro Exam: Positive: Normal Gait, Normal Speech, Cranial Nerves 3-12 NL, Ref lexes 2+ Psych Exam: Positive: Mental status NL, Mood NL, Oriented x 3 Assessment /Plan Assessment 1. Crohn disease with fistula tracts noted on CT scan - PO flagyl/steroids. - seen by surgery Dr. Herrera, no intervention. - seen by GI Dr. Lemus, plan for referral to CR surgery at [place] for bowel resection/ileostomy or colostomy. - discussed at length with patient regarding need to see CR surgery, patient stating "I don't want surgery right now". Stressed the need to be at least seen by CR at [facility] and then make her decision regarding same. Son has been contacted, unsafe discharge home, SW working on placement. - will discuss with SW/CM regarding overall plan, surgical follow up. 2. protein calorie malnutrition - nutrition supplements. 3. hypokalemia - resolved, monitor. 4. DVT ppx - lovenox. Plan/VTE VTE Prophylaxis Ordered?: Yes VS, I&O, 24H, Fishbone Vital Signs/I&O Vital Signs Date Time Temp Pulse Resp B/P (MAP) Pulse Ox O2 Delivery O2 Flow Rate FiO2 04/20/19 06:00 98.0 86 20 127/71 (89) 96 04/19/19 14:00 Room Air I&O- Last 24 Hours up to 6 AM 04/20/19 06:00 Intake Total 1937 ml Output Total 0 ml Balance 1937 ml Laboratory Data 24H LABS Laboratory Tests 2 04/19/19 12:13: Bedside Glucose (Misc Panel) 290H 04/19/19 16:58: Bedside Glucose (Misc Panel) 244H 04/19/19 20:52: Bedside Glucose (Misc Panel) 244H 04/20/19 06:37: Bedside Glucose (Misc Panel) 95 CRYSTAL GARIBAY MD Apr 20, 2019 10:12
[2019-04-20 14:00] VITALS: BP 108/65
[2019-04-20] MEDS: LOPERAMIDE 2 MG CAPLET PO PRN (21:00)
[2019-04-20 22:00] VITALS: BP 121/74
[2019-04-21] MEDS: metroNIDAZOLE (FLAGYL) 500 MG TAB PO SCH ×3 (05:55→21:38)
[2019-04-21 06:00] VITALS: BP 119/76
[2019-04-21] MEDS: HumaLOG INSULIN (NovoLOG) PER UNIT SC SCH ×4 (07:30→21:39)
[2019-04-21] MEDS: ENOXAPARIN 40 MG/0.4 ML SYRINGE (J1650) SC SCH (08:00)
[2019-04-21] MEDS: predniSONE 20 MG TAB PO SCH (08:01)
[2019-04-21] MEDS: SERTRALINE HCL 25 MG TABLET PO SCH (08:01)
[2019-04-21] MEDS: FERROUS SULFATE 325MG TAB PO SCH (08:01)
[2019-04-21] MEDS: OMEPRAZOLE 20 MG CAP PO SCH (08:01)
--- NOTE | 2019-04-21 13:44 | IPNPDOC ---
Subjective Date Seen The patient was seen on 04/21/19. Subjective Chief Complaint/HPI Seen and examined at bedside, no specific complaints. General: Reports: Normal Appetite; Denies: Chills, Night Sweats, Fatigue, Malaise Constitutional: Denies: Chills, Fever, Night Sweats Eyes: Denies: Pain, Vision change ENT: Denies: Head Aches, Ear Pain, Dysphagia Skin: Denies: Rash, Lesions, Breakdown Pulmonary: Denies: Dyspnea, Cough Cardiovascular: Denies: Chest Pain, Palpitations, Orthopnea, Paroxysmal Noc. Dyspnea, Lt Headedness Gastrointestinal: Denies: Nausea, Vomiting, Abdominal Pain, Diarrhea, Constipation Genitourinary: Denies: Dysuria, Frequency, Incontinence, Retention Hematologic: Denies: Bruising, Bleeding Excessively Musculoskeletal: Denies: Neck Pain, Back Pain, Joint Pain, Muscle Pain, Spasms Neurological: Denies: Weakness, Numbness, Change in speech, Confusion Psych: Reports: Mood Normal; Denies: Depression, Memory Issues Objective Physical Examination General Exam: Positive: Alert, No Acute Distress Eye Exam: Positive: PERRLA, Conjunctiva & lids normal, EOMI; Negative: Sclera icteric ENT Exam: Positive: Atraumatic, Mucous membr. moist/pink, Pharynx Normal Neck Exam: Positive: Supple; Negative: JVD, thyromegaly Chest Exam: Positive: Clear to auscultation, Normal air movement Heart Exam: Positive: Rate Normal, Regular Rhythm, Normal S1, Normal S2; Negative: Murmurs, Rubs Telemetry: Positive: No significant arrhythmia Abdomen Exam: Positive: Normal bowel sounds, Soft; Negative: Tenderness, Hepatospenomegaly Female Exam: Positive: Nl Ext Genitalia; Negative: Lesions, Discharge, Odor, Tenderness Extremity Exam: Positive: Normal pulses; Negative: Clubbing, Cyanosis, Edema Skin Exam: Positive: Nl turgor and temperature; Negative: Rash, Breakdown Neuro Exam: Positive: Normal Gait, Normal Speech, Cranial Nerves 3-12 NL, Reflexes 2+ Psych Exam: Positive: Mental status NL, Mood NL, Oriented x 3 Assessment /Plan Assessment 1. Crohn disease with fistula tracts noted on CT scan - PO flagyl/steroids. - seen by surgery Dr. Herrera, no intervention. - seen by GI Dr. Lemus, plan for referral to CR surgery at [place] for bowel resection/ileostomy or colostomy. - discussed at length with patient regarding need to see CR surgery. Patient has made it clear on multiple occasions that she does not want surgery. - SW working on placement. 2. protein calorie malnutrition - nutrition supplements. 3. hypokalemia - resolved, monitor. 4. DVT ppx - lovenox. Plan/VTE VTE Prophylaxis Ordered?: Yes VS, I&O, 24H, Fishbone Vital Signs/I&O Vital Signs Date Time Temp Pulse Resp B/P (MAP) Pulse Ox O2 Delivery O2 Flow Rate FiO2 04/21/19 06:00 98.2 66 18 119/76 (90) 95 Room Air I&O- Last 24 Hours up to 6 AM 04/21/19 06:00 Intake Total 1532 ml Balance 1532 ml Laboratory Data 24H LABS Laboratory Tests 2 04/20/19 16:40: Bedside Glucose (Misc Panel) 268H 04/20/19 20:27: Bedside Glucose (Misc Panel) 259H 04/21/19 05:44: Bedside Glucose (Misc Panel) 101 04/21/19 11:17: Bedside Glucose (Misc Panel) 269H CRYSTAL GARIBAY MD Apr 21, 2019 13:44
[2019-04-21 14:00] VITALS: BP 119/76
[2019-04-22] MEDS: metroNIDAZOLE (FLAGYL) 500 MG TAB PO SCH ×3 (05:26→21:01)
[2019-04-22 06:00] VITALS: BP 131/79
[2019-04-22] MEDS: HumaLOG INSULIN (NovoLOG) PER UNIT SC SCH ×4 (07:30→21:02)
[2019-04-22] MEDS: OMEPRAZOLE 20 MG CAP PO SCH (08:40)
[2019-04-22] MEDS: ENOXAPARIN 40 MG/0.4 ML SYRINGE (J1650) SC SCH (08:40)
[2019-04-22] MEDS: SERTRALINE HCL 25 MG TABLET PO SCH (08:41)
[2019-04-22] MEDS: predniSONE 20 MG TAB PO SCH (08:41)
[2019-04-22] MEDS: FERROUS SULFATE 325MG TAB PO SCH (08:41)
[2019-04-22 14:00] VITALS: BP 118/68
--- NOTE | 2019-04-22 19:59 | IPNPDOC ---
Date Seen The patient was seen on 04/22/19. Progress Note SUBJECTIVE: Patient reports no complaints today. Denies any nausea, vomiting, abdominal discomfort. OBJECTIVE PHYSICAL EXAMINATION: VITAL SIGNS: Please see below. General: No acute distress, Alert Eyes: Normal sclera, EOMI HENT: Atraumatic Cardiovascular: Normal rate, normal rhythm. Pulmonary: Clear to auscultation b/l, no wheezing GI: Soft, nontender, nondistended Skin: Warm and dry Neuro: CN grossly intact. No focal deficits. Strengths equal b/l. Psych: oriented x 3 LABORATORY DATA, IMAGING STUDIES, MICROBIOLOGY: Please see below. DVT prophylaxis ordered?: Lovenox ASSESSMENT AND PLAN: 1. Crohn's disease with fistula tracts - c/w flagyl and steroids. - seen by surgery Dr. Herrera. - Seen by Dr. Lemus with GI, recommended CR surgery at [place] for bowel resection/ileostomy or colostomy. - Patient does not want surgical intervention now awaiting placement. 2. Protein calorie malnutrition - nutrition supplement 3. Hypokalemia - Monitor and replete. DISPOSITION: Pending placement [facility]. VS, I&O, 24H, On License Of [facility] Vital Signs/I&O Vital Signs Date Time Temp Pulse Resp B/P (MAP) Pulse Ox O2 Delivery O2 Flow Rate FiO2 04/22/19 14:00 97.2 82 16 118/68 (85) 98 Room Air I&O- Last 24 Hours up to 6 AM 04/22/19 06:00 Intake Total 840 ml Balance 840 ml Laboratory Data 24H LABS Laboratory Tests 2 04/21/19 20:47: Bedside Glucose (Misc Panel) 311H 04/22/19 05:38: Bedside Glucose (Misc Panel) 92 04/22/19 12:03: Bedside Glucose (Misc Panel) 320H 04/22/19 17:17: Bedside Glucose (Misc Panel) 304H SHERRI GOMEZ MD Apr 22, 2019 19:59
[2019-04-22 22:00] VITALS: BP 118/81
[2019-04-23] MEDS: metroNIDAZOLE (FLAGYL) 500 MG TAB PO SCH ×3 (05:24→21:35)
[2019-04-23 06:00] VITALS: BP 111/75
[2019-04-23 06:22] LABS: HEMATOCRIT 37.9 % (36.0-47.0); HEMOGLOBIN 12.3 g/dl (12.0-15.5); MEAN CORPUSCULAR HEMOGLOBIN 30.1 pg (27.0-33.0); MEAN CORPUSCULAR HGB CONC 32.5 g/dl (32.0-36.5); MEAN CORPUSCULAR VOLUME 92.9 fl (80.0-96.0); PLATELET COUNT, AUTOMATED 329 10^3/uL (150-450); RED BLOOD COUNT 4.08 10^6/uL (4.00-5.40); WHITE BLOOD COUNT 9.7 10^3/uL (4.0-10.0)
[2019-04-23 06:48] LABS: BLOOD UREA NITROGEN 18 MG/DL (7-18); CALCIUM LEVEL 8.8 MG/DL (8.8-10.2); CARBON DIOXIDE LEVEL 31 MEQ/L (21-32); CHLORIDE LEVEL 97 MEQ/L (98-107); CREATININE FOR GFR 0.54 MG/DL (0.55-1.30); GLOMERULAR FILTRATION RATE > 60.0 (>45); GLUCOSE, FASTING 126 MG/DL (70-100); POTASSIUM SERUM 3.5 MEQ/L (3.5-5.1); SODIUM LEVEL 135 MEQ/L (136-145)
[2019-04-23] MEDS: ENOXAPARIN 40 MG/0.4 ML SYRINGE (J1650) SC SCH (09:38)
[2019-04-23] MEDS: predniSONE 20 MG TAB PO SCH (09:39)
[2019-04-23] MEDS: HumaLOG INSULIN (NovoLOG) PER UNIT SC SCH ×4 (09:39→21:35)
[2019-04-23] MEDS: SERTRALINE HCL 25 MG TABLET PO SCH (09:39)
[2019-04-23] MEDS: FERROUS SULFATE 325MG TAB PO SCH (09:39)
[2019-04-23] MEDS: OMEPRAZOLE 20 MG CAP PO SCH (09:39)
[2019-04-23 14:00] VITALS: BP 112/68
[2019-04-23 22:00] VITALS: BP 126/74
[2019-04-24 06:00] VITALS: BP 117/61
[2019-04-24] MEDS: metroNIDAZOLE (FLAGYL) 500 MG TAB PO SCH (06:38)
[2019-04-24] MEDS: predniSONE 20 MG TAB PO SCH (08:22)
[2019-04-24] MEDS: HumaLOG INSULIN (NovoLOG) PER UNIT SC SCH ×4 (08:22→21:00)
[2019-04-24] MEDS: SERTRALINE HCL 25 MG TABLET PO SCH (08:22)
[2019-04-24] MEDS: FERROUS SULFATE 325MG TAB PO SCH (08:22)
[2019-04-24] MEDS: OMEPRAZOLE 20 MG CAP PO SCH (08:22)
[2019-04-24] MEDS: ENOXAPARIN 40 MG/0.4 ML SYRINGE (J1650) SC SCH (08:22)
[2019-04-24 14:00] VITALS: BP 114/64
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
[2019-04-25 06:00] VITALS: BP 143/82
[2019-04-25] MEDS: ENOXAPARIN 40 MG/0.4 ML SYRINGE (J1650) SC SCH (08:04)
[2019-04-25] MEDS: HumaLOG INSULIN (NovoLOG) PER UNIT SC SCH (08:05)
[2019-04-25] MEDS: predniSONE 20 MG TAB PO SCH (08:05)
[2019-04-25] MEDS: OMEPRAZOLE 20 MG CAP PO SCH (08:06)
[2019-04-25] MEDS: SERTRALINE HCL 25 MG TABLET PO SCH (08:06)
[2019-04-25] MEDS: FERROUS SULFATE 325MG TAB PO SCH (08:06)
== END 2019-04-25 09:16 | DRG 872 ==
LOC: M ED 19:52 → M ED INP 04-10 01:36 → ENRESERV 04-10 02:59 → M PCU 04-10 03:29 → M MSPAV 04-11 06:03
PROVIDERS: ADMIT Internal Medicine; ATTEND Student in an Organized Health Care Education/Training Program
DX: A41.9 Sepsis, unspecified organism (principal); K50.113 Crohn's disease of large intestine with fistula; E87.1 Hypo-osmolality and hyponatremia; E87.2 Acidosis; E46 Unspecified protein-calorie malnutrition; E11.9 Type 2 diabetes mellitus without complications; Z87.820 Personal history of traumatic brain injury; D64.9 Anemia, unspecified; K21.9 Gastro-esophageal reflux disease without esophagitis; F32.9 Major depressive disorder, single episode, unspecified; Z90.49 Acquired absence of other specified parts of digestive tract; Z90.79 Acquired absence of other genital organ(s); Z79.899 Other long term (current) drug therapy; Z88.6 Allergy status to analgesic agent; Z91.011 Allergy to milk products; Z88.8 Allergy status to other drugs, medicaments and biological substances; K52.9 Noninfective gastroenteritis and colitis, unspecified; Z91.14 Patient's other noncompliance with medication regimen; E87.6 Hypokalemia; E83.42 Hypomagnesemia

== ENCOUNTER 2019-07-30 22:21 | Inpatient (IN) | payer MEDICARE, MEDICAID ==
[~2019-07-30] VITALS: Ht 152.4 cm; Wt 51.3 kg
[~2019-07-30 22:21] MED LIST changes: +ANTI2TAB16 PO; +ENTY1INJ IV; +PATIENT COMMENT
[2019-07-30] MEDS ORDERED: ACET1TAB55 PO (22:50)
[2019-07-30] MEDS ORDERED: CIPR-249 PO (22:50)
[2019-07-30] MEDS ORDERED: ZOFR4TAB16 PO (22:50)
[2019-07-31] MEDS ORDERED: BISA10SU27 PR (00:21)
[2019-07-31] MEDS ORDERED: MILKSUS3 PO (00:21)
[2019-07-31 02:25] VITALS: BP 128/71
[2019-07-31] MEDS: PIPERACILLIN/TAZOBACTAM SOD 3.375 GM in D5W MINI-BAG PLUS 50 ML IV SCH ×4 (03:07→20:26)
[2019-07-31] MEDS: NS 1,000 ML IV SCH ×2 (03:07→12:36)
[2019-07-31 03:23] LABS: BASO % 0.3 % (0.0-1.0); EOS # 0.2 10^3/uL (0.0-0.5); EOS % 3.2 % (0.0-3.0); LYMPH # 1.4 10^3/uL (1.5-5.0); LYMPH % 18.8 % (24.0-44.0); MEAN CORPUSCULAR HEMOGLOBIN 27.7 pg (27.0-33.0); MEAN CORPUSCULAR HGB CONC 32.3 g/dl (32.0-36.5); MEAN CORPUSCULAR VOLUME 85.9 fl (80.0-96.0); MONO # 0.7 10^3/uL (0.0-0.8); MONO % 8.8 % (0.0-5.0); NEUTROPHILS # 5.2 10^3/uL (1.5-8.5); NEUTROPHILS % 68.5 % (36.0-66.0); PLATELET COUNT, AUTOMATED 386 10^3/uL (150-450); RED BLOOD COUNT 3.61 10^6/uL (4.00-5.40); WHITE BLOOD COUNT 7.6 10^3/uL (4.0-10.0)
[2019-07-31 03:35] LABS: INR 1.33; PROTHROMBIN TIME 16.2 SECONDS (11.8-14.0)
[2019-07-31] MEDS ORDERED: GLUCOSE 4GM CHEW TABLET PO PRN ×2 (03:45→12:00)
[2019-07-31] MEDS ORDERED: DEXTROSE 50% 50 ML SYRINGE IV PRN ×2 (03:45→12:00)
[2019-07-31] MEDS ORDERED: GLUCAGON INJ 1MG VIAL SC PRN ×2 (03:45→12:00)
--- NOTE | 2019-07-31 03:48 | HPEPDOC ---
General Date of Admission Jul 31, 2019 at 01:05 Date of Service: Jul 31, 2019 Attending Physician: MARY JO GARIBAY MD Chief Complaint The patient is a 64-year-old female admitted with a reason for visit of Crohns Colitis. History of Present Illness HPI: This is a 69-year-old female direct transfer from [facility], poor historian with baseline poor medical insight and history of TBI & language disorder. Information obtained through staff & transfer records. She initially was brought to [facility] via EMS per her PCP due to CT of the abdomen and pelvis noting concern for perforation. She reportedly had 2 days of right lower quadrant abdominal pain without any nausea, vomiting, diarrhea, loss of appetite. She failed to improve on Cipro and Flagyl, and imaging was obtained due to worsening abdominal pain despite abx. Per records, she had no reported blood loss or any other GI complaints. CT of abdomen and pelvis at [facility] noted: small flecks of air in the pelvic mesenteric fat; the area of perforation was unable to be identified per the report, but findings suspicious of perforated viscus. It also noted colonic wall thickening consistent with Chrons, and a fistulous connection from the uterus to the right side of the rectum. At [facility], she had WBC 9.4, H&H 10.8/31.5, normal liver profile, lipase 13, lactate 2.5. When examined at bedside, she denies all complaints and is pleasantly confused, which is reportedly her baseline. She denies fever, chills, abdominal pain, changes in bowel movements, blood loss. She is hemodynamically stable and will be admitted for surgical eval in am. PMH: Crohns disease - ?Entyvio Depression NIDDM 2 GERD Iron deficiency anemia Expressive language disorder History of TBI Fatty liver Past Surgical Hx: Small bowel obstruction with ? resection in Hysterectomy Teeth extraction Enterocele repair Family Hx: Asked and unable to be obtained given her confusion Social Hx: No smoking, alcohol, or drugs Documented history of smoking in past Has family living nearby that helps her ROS: pt denies all ROS, confused at baseline, answers no to all questions Constitutional: Denies fever, chills, night sweats, weight loss HEENT: Denies headache, dysphagia Skin: Denies any rashes or lesions Pulmonary: Denies dyspnea, cough, wheezing Cardiac: Denies chest pain, palpitations, orthopnea, PND, edema, lightheadedness GI: Denies nausea, vomiting, abdominal pain, diarrhea, constipation, melena, hematochezia : Denies dysuria, hematuria, retention MSK: Denies new pains or weakness Neurologic: Denies new numbness/tingling PHYSICAL: General exam: frail-appearing elderly woman, A&O x2 to self and location, but not year or date or her living situation, NAD, resting comfortably HEENT: NCAT, EOMI, neck supple, no JVD, dry mucous membranes Cardiac: RRR, normal S1 & S2, no murmurs Respiratory: CTAB, good air exchange, no w/r/r Abdomen: soft, ND, normoactive bowel sounds, tender to palpation RLQ, no rebound, guarding, rigidity or any palpable masses Extremity: 2+ radial pulses, no edema or calf tenderness Skin: [place], warm, dry, no visible rash Msk: strength intact & equal throughout, normal tone Neuro: normal speech, sensation intact x4, confused is reportedly her baseline LABORATORY DATA, MICROBIOLOGY: Please see below. ASSESSMENT AND PLAN: 64-year-old female initially presented to [facility] due to right lower quadrant abdominal pain that did not improve with Cipro and Flagyl. CT imaging noted free air in the mesenteric fat with concern for perforated viscus. She was transferred for surgical evaluation. Noted to be hemodynamically stable. 1. 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 Mariscal aware of pt; Surgical eval in am For the remainder of her chronic medical conditions listed above, home meds will be on hold. Metformin switched to ISS. DVT prophylaxis: mechanical CODE STATUS: unable to obtain directly from pt given her baseline mentation; MOLST sent along with pt on transfer is filled for DNR/DNI, also noted in notes in [facility] hospital form, with son as HCP per report. DISPOSITION: admit to hospital and pending surgical eval & remaining labs. Home Medications Scheduled Ciprofloxacin HCl (Cipro) 500 Mg Tablet, 500 M PO BID, (Reported) Ferrous Sulfate (Ferrous Sulfate) 325 Mg Tab, 325 MG PO DAILY, (Reported) Metformin HCl (Metformin HCl) 500 Mg Tab, 500 MG PO DAILY, (Reported) Omeprazole (Omeprazole) 40 Mg Cap, 40 MG PO BID, (Reported) Sertraline Hcl (Sertraline HCl) 25 Mg Tab, 25 MG PO DAILY, (Reported) Scheduled PRN Acetaminophen (Acetaminophen) 325 Mg Tablet, 650 MG PO Q8H PRN for PAIN / FEVER, (Reported) Bisacodyl (Bisacodyl) 10 Mg Supp.rect, 10 MG [place] DAILY PRN for CONSTIPATION, (Re ported) Loperamide HCl (Anti-Diarrheal) 2 Mg Tablet, 2 MG PO Q4H PRN for DIARRHEA, (Reported) Magnesium Hydroxide (Milk of Magnesia) 400 Mg/5 Ml Oral.susp, 30 ML PO DAILY PRN for CONSTIPATION, (Reported) IF NO BM IN 3 DAYS, PROCEED TO SUPPOSITORY IF INEFFECTIVE Ondansetron HCl (Zofran) 4 Mg Tablet, 4 MG PO Q4H PRN for nausea/vomiting, (Reported) Allergies Coded Allergies: infliximab (Verified Allergy, Unknown, 02/24/19) lactose (Verified Adverse Reaction, Intermediate, N/V/D, 02/24/19) morphine (Verified Adverse Reaction, Intermediate, HALLUCINATIONS, 02/24/19) nizatidine (Verified Adverse Reaction, Mild, METABOLIC RXN, 02/24/19) A-FIB/CHADSVASC A-FIB History Current/History of A-Fib/PAF?: No Vital Signs Vital Signs Date Time Temp Pulse Resp B/P (MAP) Pulse Ox O2 Delivery O2 Flow Rate FiO2 07/31/19 02:25 98.8 74 17 128/71 (90) 96 Room Air Laboratory Data Labs 24H Laboratory Tests 2 07/31/19 03:08: Immature Granulocyte % (Auto) 0.4, Neutrophils (%) (Auto) 68.5H, Lymphocytes (%) (Auto) 18.8L, Monocytes (%) (Auto) 8.8H, Eosinophils (%) (Auto) 3.2H, Basophils (%) (Auto) 0.3, Neutrophils # (Auto) 5.2, Lymphocytes # (Auto) 1.4L, Monocytes # (Auto) 0.7, Eosinophils # (Auto) 0.2, Basophils # (Auto) 0.0, Nucleated Red Blood Cells % (auto) 0.0, Prothrombin Time 16.2H, Prothromb Time International Ratio 1.33 CBC/BMP Laboratory Tests 07/31/19 03:08 Microbiology Microbiology 07/31/19 Blood Culture, Received Pending 07/31/19 Blood Culture, Received Pending Plan / VTE VTE Prophylaxis Ordered?: Yes GME ATTESTATION GME ATTESTATION My faculty preceptor for this patient encounter was physically present during the encounter and was fully available. All aspects of the patient interview, examination, medical decision making process, and medical care plan development were reviewed and approved by the faculty preceptor. The faculty preceptor is aw are and concurs with the plan as stated in the body of this note and will attest to such by his/her cosignature. ATTENDING NOTE I, Mary Jo Garibay, have independently examined this patient and performed my own physical exam, as well as reviewed the documentation and edited where necessary. I have discussed in detail with the resident / student the findings and plan of treatment as documented by the resident / student and edited their note. I agree with their findings and treatment plan and have edited their documentation. I will continue to follow the patient during this hospital stay. PATRICIO ALVAREZ DO Jul 31, 2019 03:48 MARY JO GARIBAY MD Jul 31, 2019 05:00
[2019-07-31 04:03] LABS: ALBUMIN 1.9 GM/DL (3.2-5.2); ALT/SGPT < 6 U/L (12-78); BILIRUBIN,TOTAL 0.5 MG/DL (0.2-1.0); BLOOD UREA NITROGEN 10 MG/DL (7-18); CALCIUM LEVEL 8.2 MG/DL (8.8-10.2); CARBON DIOXIDE LEVEL 31 MEQ/L (21-32); CHLORIDE LEVEL 98 MEQ/L (98-107); CK-MB VALUE MASS < 1.0 NG/ML (<3.6); CPK CREATINE PHOSPHOKINASE 7 U/L (26-192); CREATININE FOR GFR 0.44 MG/DL (0.55-1.30); GLOMERULAR FILTRATION RATE > 60.0 (>45); GLUCOSE, FASTING 103 MG/DL (70-100); MAGNESIUM LEVEL 0.9 MG/DL (1.8-2.4); MB/CK RELATIVE INDEX 14.29 (< OR =4); PHOSPHORUS LEVEL 2.9 MG/DL (2.5-4.9); POTASSIUM SERUM 3.5 MEQ/L (3.5-5.1); SODIUM LEVEL 135 MEQ/L (136-145); TOTAL PROTEIN 5.6 GM/DL (6.4-8.2); TROPONIN I < 0.02 NG/ML (< 0.10)
[2019-07-31] MEDS ORDERED: MAGNESIUM OXIDE 400 MG TAB (MAG-OX) PO ONE (04:15)
[2019-07-31] MEDS: MAG SULF 1GM/100ML (MAG RUN) 1 GM in IV 1 EA IV SCH ×4 (04:43→08:13)
[2019-07-31 06:00] VITALS: BP 120/72
[2019-07-31] MEDS ORDERED: HumaLOG INSULIN (NovoLOG) PER UNIT SC SCH (06:00)
[2019-07-31] MEDS: BOUDREAUX'S BUTT PASTE TOP SCH ×2 (09:00→20:26)
[2019-07-31 10:35] LABS: CK-MB VALUE MASS < 1.0 NG/ML (<3.6); CPK CREATINE PHOSPHOKINASE 8 U/L (26-192); MAGNESIUM LEVEL 3.1 MG/DL (1.8-2.4); TROPONIN I < 0.02 NG/ML (< 0.10)
[2019-07-31] MEDS: HumaLOG INSULIN (NovoLOG) PER UNIT SC SCH ×3 (12:36→20:25)
[2019-07-31 14:00] VITALS: BP 107/55
--- NOTE | 2019-07-31 16:55 | IPNPDOC ---
Text Note Date of Service The patient was seen on 07/31/19. NOTE Subjective: -Poor historian but per this morning she reports that her abdominal pain is per her baseline, is nor worse from how she has recently felt -Reporting frequent diarrhea Objective: General exam: frail-appearing elderly woman, A&O x2 to self and location, but not year or date or her living situation, NAD, resting comfortably HEENT: NCAT, EOMI, neck supple, no JVD, dry mucous membranes Cardiac: RRR, normal S1 & S2, no murmurs Respiratory: CTAB, good air exchange, no w/r/r Abdomen: soft, ND, normoactive bowel sounds, tender to palpation RLQ, no rebound, guarding, rigidity or any palpable masses Extremity: 2+ radial pulses, no edema or calf tenderness Skin: [place], warm, dry, no visible rash Msk: strength intact & equal throughout, normal tone Neuro: normal speech, sensation intact x4, confused is reportedly her baseline LABORATORY DATA, MICROBIOLOGY: Please see below. ASSESSMENT AND PLAN: 64-year-old W initially presented to [facility] due to right lower quadrant abdominal pain that did not improve with Cipro and Flagyl for [address] noted free air in the mesenteric fat with concern for perforated viscus and transferred for surgical evaluation. 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 Hernandez, will f/u recs - Pt otherwise hemodynamically stable, afebrile, no leukocytosis however, with ongoing diarrhea --> will check a GI panel - Continue IV fluids and empiric Zosyn -Now on clear liquid diet Chronic meds: DM: hold metformin and start SSI, FSBG AC/HS, hypoglycemia protocol GERD: continue PPI Anemia: continue Fe sulfate DVT prophylaxis: mechanical CODE STATUS: unable to obtain directly from pt given her baseline mentation; MOLST sent along with pt on transfer is filled for DNR/DNI, also noted in notes in [facility] form, with son as HCP per report. DISPOSITION: pending surgical recs and ongoing medical management VS,Fishbone, I+O VS, Fishbone, I+O Laboratory Tests 07/31/19 03:08 Vital Signs Date Time Temp Pulse Resp B/P (MAP) Pulse Ox O2 Delivery O2 Flow Rate FiO2 07/31/19 14:00 99.4 78 18 107/55 (72) 98 Room Air I&O- Last 24 Hours up to 6 AM 07/31/19 06:00 Intake Total 150 ml Balance 150 ml MILAD GILBERT MD Jul 31, 2019 16:55
[2019-07-31] MEDS: SERTRALINE HCL 25 MG TABLET PO SCH (17:15)
[2019-07-31] MEDS: FERROUS SULFATE 325MG TAB PO SCH (17:15)
[2019-07-31 22:00] VITALS: BP 115/68
[2019-08-01] MEDS: NS 1,000 ML IV SCH ×2 (01:14→14:14)
[2019-08-01] MEDS: PIPERACILLIN/TAZOBACTAM SOD 3.375 GM in D5W MINI-BAG PLUS 50 ML IV SCH ×4 (01:14→20:08)
[2019-08-01 06:00] VITALS: BP 109/59
[2019-08-01 06:56] LABS: HEMATOCRIT 34.8 % (36.0-47.0); MEAN CORPUSCULAR HGB CONC 31.6 g/dl (32.0-36.5); MEAN CORPUSCULAR VOLUME 88.5 fl (80.0-96.0); PLATELET COUNT, AUTOMATED 424 10^3/uL (150-450); RED BLOOD COUNT 3.93 10^6/uL (4.00-5.40); WHITE BLOOD COUNT 8.6 10^3/uL (4.0-10.0)
[2019-08-01 07:13] LABS: BLOOD UREA NITROGEN 4 MG/DL (7-18); CALCIUM LEVEL 8.4 MG/DL (8.8-10.2); CARBON DIOXIDE LEVEL 31 MEQ/L (21-32); CHLORIDE LEVEL 102 MEQ/L (98-107); CREATININE FOR GFR 0.54 MG/DL (0.55-1.30); GLOMERULAR FILTRATION RATE > 60.0 (>45); GLUCOSE, FASTING 126 MG/DL (70-100); SODIUM LEVEL 138 MEQ/L (136-145)
[2019-08-01] MEDS: BOUDREAUX'S BUTT PASTE TOP SCH ×2 (08:35→20:08)
[2019-08-01] MEDS: SERTRALINE HCL 25 MG TABLET PO SCH (08:37)
[2019-08-01] MEDS: FERROUS SULFATE 325MG TAB PO SCH (08:37)
[2019-08-01] MEDS: HumaLOG INSULIN (NovoLOG) PER UNIT SC SCH ×4 (08:38→20:09)
[2019-08-01 09:50] LABS: C REACTIVE PROTEIN QUANTITATIV 5.93 MG/DL (0.00-0.30)
[2019-08-01 14:00] VITALS: BP 121/73
--- NOTE | 2019-08-01 16:15 | IPNPDOC ---
Text Note Date of Service The patient was seen on 08/01/19. NOTE Subjective: -No complaints this morning, reports ongoing diarrhea without pain at this time Objective: General exam: frail-appearing elderly woman, NAD, resting comfortably HEENT: NCAT, EOMI, neck supple, no JVD, MMM Cardiac: RRR, normal S1 & S2, no murmurs Respiratory: CTAB, good air exchange, no w/r/r Abdomen: soft, ND, normoactive bowel sounds, nontender this morning, no rebound, guarding, rigidity or any palpable masses Extremity: 2+ radial pulses, no edema or calf tenderness Skin: [place], warm, dry, no visible rash Neuro: normal speech, weak with 4/5 strength throughout this morning. AOx2 per her baseline LABORATORY DATA: WBC 8.6 hgb 11 platelets 424 na 138 k 4 cr 0.54 ASSESSMENT AND PLAN: 64-year-old W initially presented to [facility] due to right lower quadrant abdominal pain that did not improve with Cipro and Flagyl for [address] noted free air in the mesenteric fat with concern for perforated viscus and transferred for surgical evaluation and after evaluation of the imaging and examination, Dr. Hernandez recommended medical management with no indications for surgical intervention at this time. Instead he recommended evaluation by GI as she is not on any Crohn's treatment at this time with clear ongoing inflammation and referral to a colorectal surgeon in the future. RLQ abdominal pain - Presented with worsening pain over despite 2d of Cipro/flagyl, now much improved on zosyn. - CT abd/pelvis at [place] noted free air in pelvic mesenteric fat, fistula from uterus to right side of rectum in setting of Crohns, with c/f perf, and after evaluation by Dr. Hernandez, will medically manage and consulted Dr. Miles for Crohn's flare treatment, pending recs. - Pt otherwise hemodynamically stable, afebrile, no leukocytosis however, with ongoing diarrhea, will check GI panel - Continue IV fluids and empiric Zosyn -Now on low residue diet Chronic meds: DM: hold metformin and start SSI, FSBG AC/HS, hypoglycemia protocol GERD: continue PPI Anemia: continue Fe sulfate DVT prophylaxis: mechanical CODE STATUS: unable to obtain directly from pt given her baseline mentation; MOLST sent along with pt on transfer is filled for DNR/DNI, also noted in notes in [facility] form, with son as HCP per report. DISPOSITION: pending GI evaluation and recs and ongoing medical management VS,Fishbone, I+O VS, Fishbone, I+O Laboratory Tests 08/01/19 06:29 Vital Signs Date Time Temp Pulse Resp B/P (MAP) Pulse Ox O2 Delivery O2 Flow Rate FiO2 08/01/19 14:00 98.5 94 17 121/73 (89) 97 Room Air I&O- Last 24 Hours up to 6 AM 08/01/19 06:00 Intake Total 2240 ml Output Total 700 ml Balance 1540 ml MILAD GILBERT MD Aug 01, 2019 16:15
--- NOTE | 2019-08-01 20:52 | CR.PDOC ---
General Date of Consultation: Aug 01, 2019 Referring Provider: YUMIKO GILBERT MD Attending Physician: ARIELLE DENT MD Consultation Primary physician/ hospitalist: Dr. Yumiko Isaacs Reason for consult: - Crohns colitis and abnormal CT scan. HPI: 69-year-old female patient with DM type 2, GERD, Crohns disease ( diagnosed when she was teenager and was following with Dr. Lemus, does not remember what medications she was getting for crohns but as per records patient was previously Entyvio but it was held for unlcear reasons and currently not on any therapy),, was admitted on 06/01/2019 after being transferred from [facility], for abnormal CT scan. GI was consulted for management of Crohns disease. Patient is poor historian, and does not recall much and reports just diarrhea without any other GI symptoms. Patient reports she was diagnosed with crohns disease many years ago, followed with Dr. Lemus in past and does not recall taking any medications currently. Patient reports having 2-4 loose bowel movements per day and denies any other GI symptoms. OFF note : as per the records -- CT of abdomen and pelvis at [facility] noted: small flecks of air in the pelvic mesenteric fat; the area of perforation was unable to be identified per the report, but findings suspicious of perforated viscus. It also noted colonic wall thickening consistent with Crohns and a fistulous connection from the uterus to the right side of the rectum. Pertinent negative GI symptoms: Patient denies fever, sick contacts, recent travel, nausea, vomiting, diarrhea, abdominal pain, loss of appetite, early satiety or unintentional weight loss. No history of hematemesis, melena or hematochezia. Patient reports regular bowel movements. Review of Systems: GI: as stated above CVS: No chest pain, No palpitations, No leg swelling. RS: No Shortness of breath, No Wheezing, no cough GRAIN SAMPLER: No dizziness, No motor weakness, No sensory problems Hematology: No bruising, No gum bleeding, Musculoskeletal: No joint pain, ambulating well. Skin: No rash : No hematuria, No burning sensation of the urine ENT: No ear discharge/ pain, No dysphagia. Eyes: No photophobia. Jaundice Home medications: reviewed. Antithrombotic agents: - none Medical h/o: As above. Surgical h/o: None as per patient. Social h/o: Alcohol: Denies, smoking: Denies, IVDA/ drugs: Denies . Family h/o of GI cancers - None Prior Endoscopies: Multiple EGD and colonoscopies by Dr. Lemus. Last colonoscopy in Feb 2017 done for rectal bleeding by Dr. Lemus -- completed till Ileocolonic anastomosis - showed severe active crohns colitis . Prior GI evaluations: - Follows with Dr. Lemus. Exam: Vitals: reviewed General: Alert and oriented x 3, not in distress HEENT: Minimal pallor, no icterus. Normal oropharynx, NO cervical lymph nodes. Chest: symmetric with bilateral clear air entry, CVS: S1, S2 heard, normal, no murmurs . Abdomen: non-distended, soft, Mild tenderness in lower abdomen, no rigidity or guarding, no palpable masses, normal bowel sounds heard. Rectal exam: Patient refused Extremities: no pedal edema, pulses palpable. GRAIN SAMPLER: no focal motor or sensory deficits. Moves all extremities Skin: no rash. Labs: reviewed. Imaging: reviewed. Impression: -- Severe complicated Crohns disease with fistulas and prior h/o use of Entyvio and records showing allergy to Infliximab, need to review prior records for furt her management. -- Abnormal CT scan showing possible bowel perforations with possible fistulas -- being evaluated by surgery. -- Chronic anemia -- likely multifactorial -- DDx- anemia of chronic disease, vs Chronic GI blood loss. Recommendations: - Patient educated about the test results, possible differential diagnoses and All questions answered. - Will obtain prior records from Dr. Lemus clinic to review prior work up and treatments. - Will obtain Hepatitis B and quanteferon - Also will order septic work up. - Will continue empiric antibiotics for now. - Follow surgery recommendations for the abnormal CT scan results. - As clinically patient does not appears to have acute abdomen, will consider starting on immunomodulator therapy after above results and revie wof prior therapies.. - Also patient would need follow up with [facility]-rectal surgery for evaluation of the pelvic fistulas. Plan of care discussed with patient and primary team. Patient verbalized understanding and agreed with the plan. Vital Signs/I&O Vital Signs Date Time Temp Pulse Resp B/P (MAP) Pulse Ox O2 Delivery O2 Flow Rate FiO2 08/01/19 14:00 98.5 94 17 121/73 (89) 97 Room Air I&O- Last 24 Hours up to 6 AM 08/01/19 05:59 Intake Total 1340 ml Output Total 700 ml Balance 640 ml Laboratory Data Labs 24H Laboratory Tests 2 08/01/19 06:29: Nucleated Red Blood Cells % (auto) 0.0, Anion Gap 5L, Glomerular Filtration Rate > 60.0, Calcium Level 8.4L, C-Reactive Protein, Quantitative 5.93H 08/01/19 11:21: Bedside Glucose (Misc Panel) 116H 08/01/19 16:19: Bedside Glucose (Misc Panel) 224H 08/01/19 20:01: Bedside Glucose (Misc Panel) 73L CBC/BMP Laboratory Tests 08/01/19 06:29 Microbiology Microbiology 07/31/19 Blood Culture - Preliminary, Resulted No growth after 24 hours . All specim... 07/31/19 Blood Culture - Preliminary, Resulted No growth after 24 hours . All specim... Allergies Coded Allergies: infliximab (Verified Allergy, Unknown, 02/24/19) lactose (Verified Adverse Reaction, Intermediate, N/V/D, 02/24/19) morphine (Verified Adverse Reaction, Intermediate, HALLUCINATIONS, 02/24/19) nizatidine (Verified Adverse Reaction, Mild, METABOLIC RXN, 02/24/19) Home Medications Scheduled Ciprofloxacin HCl (Cipro) 500 Mg Tablet, 500 M PO BID, (Reported) Ferrous Sulfate (Ferrous Sulfate) 325 Mg Tab, 325 MG PO DAILY, (Reported) Metformin HCl (Metformin HCl) 500 Mg Tab, 500 MG PO DAILY, (Reported) Omeprazole (Omeprazole) 40 Mg Cap, 40 MG PO BID, (Reported) Sertraline Hcl (Sertraline HCl) 25 Mg Tab, 25 MG PO DAILY, (Reported) Scheduled PRN Acetaminophen (Acetaminophen) 325 Mg Tablet, 650 MG PO Q8H PRN for PAIN / FEVER, (Reported) Bisacodyl (Bisacodyl) 10 Mg Supp.rect, 10 MG [place] DAILY PRN for CONSTIPATION, (Reported) Loperamide HCl (Anti-Diarrheal) 2 Mg Tablet, 2 MG PO Q4H PRN for DIARRHEA, (Reported) Magnesium Hydroxide (Milk of Magnesia) 400 Mg/5 Ml Oral.susp, 30 ML PO DAILY PRN for CONSTIPATION, (Reported) IF NO BM IN 3 DAYS, PROCEED TO SUPPOSITORY IF INEFFECTIVE Ondansetron HCl (Zofran) 4 Mg Tablet, 4 MG PO Q4H PRN for nausea/vomiting, (Reported) ARIELLE DENT MD Aug 01, 2019 20:52
[2019-08-01 22:00] VITALS: BP 128/59
[2019-08-02] MEDS: PIPERACILLIN/TAZOBACTAM SOD 3.375 GM in D5W MINI-BAG PLUS 50 ML IV SCH ×4 (02:13→20:30)
[2019-08-02 06:00] VITALS: BP 105/67
[2019-08-02 07:05] LABS: HEMOGLOBIN 9.7 g/dl (12.0-15.5); MEAN CORPUSCULAR HEMOGLOBIN 27.5 pg (27.0-33.0); MEAN CORPUSCULAR HGB CONC 31.3 g/dl (32.0-36.5); MEAN CORPUSCULAR VOLUME 87.8 fl (80.0-96.0); PLATELET COUNT, AUTOMATED 393 10^3/uL (150-450); RED BLOOD COUNT 3.53 10^6/uL (4.00-5.40); WHITE BLOOD COUNT 7.4 10^3/uL (4.0-10.0)
[2019-08-02 07:24] LABS: BLOOD UREA NITROGEN 5 MG/DL (7-18); CALCIUM LEVEL 8.5 MG/DL (8.8-10.2); CARBON DIOXIDE LEVEL 26 MEQ/L (21-32); CHLORIDE LEVEL 106 MEQ/L (98-107); CREATININE FOR GFR 0.44 MG/DL (0.55-1.30); GLOMERULAR FILTRATION RATE > 60.0 (>45); GLUCOSE, FASTING 120 MG/DL (70-100); POTASSIUM SERUM 3.3 MEQ/L (3.5-5.1); SODIUM LEVEL 138 MEQ/L (136-145)
[2019-08-02] MEDS: NS 1,000 ML IV SCH (08:35)
[2019-08-02] MEDS: SERTRALINE HCL 25 MG TABLET PO SCH (08:36)
[2019-08-02] MEDS: FERROUS SULFATE 325MG TAB PO SCH (08:36)
[2019-08-02] MEDS: POTASSIUM CHLORIDE 10 MEQ SR TABLET PO ONE ×2 (08:36→09:01)
[2019-08-02] MEDS: HumaLOG INSULIN (NovoLOG) PER UNIT SC SCH ×4 (08:36→20:30)
[2019-08-02] MEDS: BOUDREAUX'S BUTT PASTE TOP SCH ×2 (08:37→20:32)
[2019-08-02 08:43] LABS: MAGNESIUM LEVEL 1.8 MG/DL (1.8-2.4)
--- NOTE | 2019-08-02 12:02 | IPNPDOC ---
Text Note Date of Service The patient was seen on 08/02/19. NOTE Subjective: -No complaints this morning -Continues to have significant diarrhea with 8 episodes in the last 24h, with negative GI panel Objective: General exam: frail and ill appearing elderly woman, NAD HEENT: NCAT, EOMI, neck supple, no JVD, MMM Cardiac: RRR, normal S1 & S2, no murmurs Respiratory: CTAB, good air exchange, no w/r/r Abdomen: soft, ND, normoactive bowel sounds, nontender abdomen per my exam, no rebound, guarding, rigidity or any palpable masses Extremity: 2+ radial pulses, no edema or calf tenderness Skin: [place], warm, dry, no visible rash Neuro: normal speech, weak with 4/5 strength throughout. AOx2 per her baseline LABORATORY DATA: WBC 7.4 hgb 9.7 platelets 393 k 3.3 ASSESSMENT AND PLAN: 64-year-old W with Crohn's disease not on treatment, dale emerson presented to [facility] due to right lower quadrant abdominal pain that did not improve with Cipro and Flagyl for [address] noted free air in the mesenteric fat with concern for perforated viscus and transferred for surgical evaluation and after evaluation of the imaging and examination, Dr. Hernandez recommended medical management with no indications for surgical intervention at this time. Instead he recommended evaluation by GI as she is not on any Crohn's treatment at this time with clear ongoing inflammation and referral to a colorectal surgeon in the future and is now pending evaluation by Dr. Miles. In the meantime, her pain appears to have resolved while on empiric zosyn but has persistent significant diarrhea for which a GI panel is pending. RLQ abdominal pain - Presented with worsening pain over despite 2d of Cipro/flagyl, now much improved on zosyn. 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 Hernandez, will medically manage and consulted Dr. Miles for Crohn's flare treatment, pending recs. - Pt otherwise hemodynamically stable, afebrile, no leukocytosis however, with ongoing diarrhea now with pending GI panel - Continue IV fluids and empiric Zosyn - Now on low residue diet - Significant diarrhea with negative GI panel --> will resume home loperamide Chronic meds: DM: hold metformin and continue SSI, FSBG AC/HS, hypoglycemia protocol GERD: continue PPI Anemia: continue Fe sulfate DVT prophylaxis: mechanical CODE STATUS: unable to obtain directly from pt given her baseline mentation; MOLST sent along with pt on transfer is filled for DNR/DNI, also noted in notes in [facility] form, with son as HCP per report. DISPOSITION: pending GI evaluation and recs and ongoing medical management VS,Fishbone, I+O VS, Fishbone, I+O Laboratory Tests 08/02/19 06:47 Vital Signs Date Time Temp Pulse Resp B/P (MAP) Pulse Ox O2 Delivery O2 Flow Rate FiO2 08/02/19 06:00 97.6 73 17 105/67 (80) 95 Room Air I&O- Last 24 Hours up to 6 AM 08/02/19 05:59 Intake Total 3377 ml Output Total 250 ml Balance 3127 ml MILAD GILBERT MD Aug 02, 2019 08:13
[2019-08-02] MEDS: KCL 10MEQ/100ML SWI (KRUN) 10 MEQ in IV 1 EA IV SCH ×3 (12:51→14:00)
[2019-08-02] MEDS: LOPERAMIDE 2 MG CAPLET PO PRN ×2 (12:58→20:31)
[2019-08-02 14:00] VITALS: BP 105/57
[2019-08-02] MEDS: KCL 20MEQ in NS 1000ML 1,000 ML IV SCH (15:08)
[2019-08-02 22:00] VITALS: BP 101/70
[2019-08-03] MEDS: PIPERACILLIN/TAZOBACTAM SOD 3.375 GM in D5W MINI-BAG PLUS 50 ML IV SCH ×2 (02:01→08:39)
[2019-08-03] MEDS: LOPERAMIDE 2 MG CAPLET PO PRN (04:59)
[2019-08-03] MEDS: KCL 20MEQ in NS 1000ML 1,000 ML IV SCH ×2 (05:58→17:39)
[2019-08-03 06:00] VITALS: BP 104/68
[2019-08-03 06:43] LABS: HEMATOCRIT 35.5 % (36.0-47.0); HEMOGLOBIN 10.8 g/dl (12.0-15.5); MEAN CORPUSCULAR HEMOGLOBIN 27.1 pg (27.0-33.0); MEAN CORPUSCULAR HGB CONC 30.4 g/dl (32.0-36.5); PLATELET COUNT, AUTOMATED 414 10^3/uL (150-450); RED BLOOD COUNT 3.99 10^6/uL (4.00-5.40); WHITE BLOOD COUNT 8.2 10^3/uL (4.0-10.0)
[2019-08-03 07:06] LABS: BLOOD UREA NITROGEN 4 MG/DL (7-18); CALCIUM LEVEL 8.3 MG/DL (8.8-10.2); CARBON DIOXIDE LEVEL 28 MEQ/L (21-32); CHLORIDE LEVEL 106 MEQ/L (98-107); CREATININE FOR GFR 0.45 MG/DL (0.55-1.30); GLOMERULAR FILTRATION RATE > 60.0 (>45); GLUCOSE, FASTING 100 MG/DL (70-100); POTASSIUM SERUM 4.3 MEQ/L (3.5-5.1); SODIUM LEVEL 141 MEQ/L (136-145)
[2019-08-03] MEDS: HumaLOG INSULIN (NovoLOG) PER UNIT SC SCH ×4 (07:30→20:36)
[2019-08-03] MEDS: SERTRALINE HCL 25 MG TABLET PO SCH (08:39)
[2019-08-03] MEDS: FERROUS SULFATE 325MG TAB PO SCH (08:39)
[2019-08-03] MEDS: BOUDREAUX'S BUTT PASTE TOP SCH ×2 (08:39→20:36)
[2019-08-03] MEDS: ONDANSETRON 4MG/2ML VIAL IV PRN (09:50)
--- NOTE | 2019-08-03 11:59 | IPNPDOC ---
Text Note Date of Service The patient was seen on 08/03/19. NOTE Subjective: -Nauseous after breakfast with 1 episode of emesis -Continues to have significant diarrhea, had a negative GI panel Objective: General exam: frail and ill appearing elderly woman, NAD HEENT: NCAT, EOMI, neck supple, no JVD, MMM Cardiac: RRR, normal S1 & S2, no murmurs Respiratory: CTAB, good air exchange, no w/r/r Abdomen: soft, ND, normoactive bowel sounds, nontender abdomen per my exam, no rebound, guarding, rigidity or any palpable masses Extremity: 2+ radial pulses, no edema or calf tenderness Skin: [place], warm, dry, no visible rash Neuro: normal speech, weak with 4/5 strength throughout. AOx2 per her baseline LABORATORY DATA: WBC 8.2 hgb 10.8 platelets 414 k 4.3 Cr 0.45 ASSESSMENT: 64-year-old W with Crohn's disease not on treatment, initially presented to [facility] due to right lower quadrant abdominal pain that did not improve with Cipro and Flagyl for [address] noted free air in the mesenteric fat with concern for perforated viscus and transferred for surgical evaluation and after evaluation of the imaging and examination, Dr. Hernandez recommended medical management with no indications for surgical intervention at this time. Instead he recommended evaluation by GI as she is not on any Crohn's treatment at this time with clear ongoing inflammation and referral to a colorectal surgeon in the future and is now pending evaluation by Dr. Miles. In the meantime, her pain appears to have resolved while on empiric zosyn but has persistent significant diarrhea with a negative GI panel. RLQ abdominal pain: pain has resolved, with persistent diarrhea and nausea - Presented with worsening pain over despite 2d of Cipro/flagyl, now much improved on zosyn. 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 Hernandez, will medically manage and consulted Dr. Miles for Crohn's flare treatment, pending recs. - Pt otherwise hemodynamically stable, afebrile, no leukocytosis however, with ongoing diarrhea now with pending GI panel - Continue IV fluids and switch empiric Zosyn to ceftin/flagyl - Now on low residue diet - Significant diarrhea with negative GI panel, resumed PRN loperamide - start PRN zofran Chronic meds: DM: hold metformin and continue SSI, FSBG AC/HS, hypoglycemia protocol GERD: continue PPI Anemia: continue Fe sulfate DVT prophylaxis: mechanical CODE STATUS: unable to obtain directly from pt given her baseline mentation; MOLST sent along with pt on transfer is filled for DNR/DNI, also noted in notes in [place] hospital form, with son as HCP per report. DISPOSITION: pending GI recs and ongoing medical management VS,Fishbone, I+O VS, Fishbone, I+O Laboratory Tests 08/03/19 06:18 Vital Signs Date Time Temp Pulse Resp B/P (MAP) Pulse Ox O2 Delivery O2 Flow Rate FiO2 08/03/19 06:00 98.4 69 17 104/68 (80) 97 Room Air I&O- Last 24 Hours up to 6 AM 08/03/19 06:00 Intake Total 2770 ml Output Total 1175 ml Balance 1595 ml MILAD GILBERT MD Aug 03, 2019 09:33
[2019-08-03 14:00] VITALS: BP 105/63
[2019-08-03] MEDS: metroNIDAZOLE (FLAGYL) 500 MG TAB PO SCH ×3 (14:09→20:44)
[2019-08-03] MEDS: CEFUROXIME 500 MG TAB PO SCH ×2 (20:36→20:44)
[2019-08-03 22:00] VITALS: BP 108/63
[2019-08-04] MEDS: metroNIDAZOLE (FLAGYL) 500 MG TAB PO SCH ×4 (05:46→20:41)
[2019-08-04 05:51] LABS: HEMATOCRIT 32.7 % (36.0-47.0); HEMOGLOBIN 10.2 g/dl (12.0-15.5); MEAN CORPUSCULAR HEMOGLOBIN 27.6 pg (27.0-33.0); MEAN CORPUSCULAR HGB CONC 31.2 g/dl (32.0-36.5); MEAN CORPUSCULAR VOLUME 88.6 fl (80.0-96.0); PLATELET COUNT, AUTOMATED 402 10^3/uL (150-450); RED BLOOD COUNT 3.69 10^6/uL (4.00-5.40); WHITE BLOOD COUNT 7.1 10^3/uL (4.0-10.0)
[2019-08-04] MEDS: KCL 20MEQ in NS 1000ML 1,000 ML IV SCH ×2 (05:51→17:39)
[2019-08-04 06:00] VITALS: BP 112/68
[2019-08-04 06:13] LABS: BLOOD UREA NITROGEN 4 MG/DL (7-18); CALCIUM LEVEL 7.7 MG/DL (8.8-10.2); CARBON DIOXIDE LEVEL 26 MEQ/L (21-32); CHLORIDE LEVEL 107 MEQ/L (98-107); CREATININE FOR GFR 0.41 MG/DL (0.55-1.30); GLOMERULAR FILTRATION RATE > 60.0 (>45); GLUCOSE, FASTING 105 MG/DL (70-100); SODIUM LEVEL 140 MEQ/L (136-145)
[2019-08-04] MEDS: HumaLOG INSULIN (NovoLOG) PER UNIT SC SCH ×4 (07:30→20:35)
[2019-08-04] MEDS: ONDANSETRON 4MG/2ML VIAL IV PRN ×2 (08:06→22:02)
[2019-08-04] MEDS: FERROUS SULFATE 325MG TAB PO SCH (08:44)
[2019-08-04] MEDS: SERTRALINE HCL 25 MG TABLET PO SCH (08:44)
[2019-08-04] MEDS: BOUDREAUX'S BUTT PASTE TOP SCH ×2 (08:45→20:38)
[2019-08-04] MEDS: CEFUROXIME 500 MG TAB PO SCH ×3 (08:58→20:41)
[2019-08-04 10:45] LABS: HEPATITIS B SURFACE ANTIBODY NEGATIVE (POSITIVE); HEPATITIS B SURFACE ANTIGEN NEGATIVE (NEGATIVE); HEPATITIS C VIRUS ABY INDEX 0.1 INDEX (<0.8)
[2019-08-04 14:00] VITALS: BP 128/66
--- NOTE | 2019-08-04 17:17 | IPNPDOC ---
Text Note Date of Service The patient was seen on 08/04/19. NOTE Subjective: -nausea is much improved -Continues to have significant diarrhea -Denies abdominal pain Objective: General exam: frail and ill appearing elderly woman, NAD HEENT: NCAT, EOMI, neck supple, no JVD, MMM Cardiac: RRR, normal S1 & S2, no murmurs Respiratory: CTAB, good air exchange, no w/r/r Abdomen: soft, ND, normoactive bowel sounds, nontender abdomen Extremity: 2+ radial pulses, no edema or calf tenderness Skin: [place], warm, dry, no visible rash Neuro: normal speech, weak with 4/5 strength throughout. LABORATORY DATA: WBC 7.1 hgb 10.2 platelets 402 k 4 Cr 0.41 Pending hepB serologies and quant gold ASSESSMENT: 64-year-old W with Crohn's disease not on treatment, initially presented to [facility] due to right lower quadrant abdominal pain that did not improve with Cipro and Flagyl for [address] noted free air in the mesenteric fat with concern for perforated viscus and transferred for surgical evaluation and after evaluation of the imaging and examination, Dr. Hernandez recommended medical management with no indications for surgical intervention at this time. Instead he recommended evaluation by GI as she is not on any Crohn's treatment at this time with clearly ongoing inflammation and referral to a colorectal surgeon in the future and is under evaluation by Dr. Miles for immunomodulatory agents with pending hepB and quant gold before initiation. In the meantime, her pain appears to have resolved and remains on empiric ceftin /flagyl but has persistent diarrhea. RLQ abdominal pain: pain has resolved, with persistent diarrhea and nausea - Presented with worsening pain over despite 2d of Cipro/flagyl, now resolved on zosyn. 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 Hernandez, will medically manage and consulted Dr. Miles for Crohn's flare treatment, pending hepB and TB testing before likely initiation of immunomodulatory therapy. - Pt otherwise hemodynamically stable, afebrile, no leukocytosis, negative GI panel however, with persistent diarrhea - Continue IV fluids and ceftin/flagyl - Now on low residue diet - Given the significant diarrhea with negative GI panel, resumed her PRN loperamide - PRN zofran for nausea Chronic meds: DM: hold metformin and continue SSI, FSBG AC/HS, hypoglycemia protocol GERD: continue PPI Anemia: continue Fe sulfate DVT prophylaxis: mechanical CODE STATUS: unable to obtain directly from pt given her baseline mentation; MOLST sent along with pt on transfer is filled for DNR/DNI, also noted in notes in [facility] form, with son as HCP per report. DISPOSITION: ongoing evaluation by GI for Crohn's treatment with ongoing medical management VS,Fishbone, I+O VS, Fishbone, I+O Laboratory Tests 08/04/19 05:36 Vital Signs Date Time Temp Pulse Resp B/P (MAP) Pulse Ox O2 Delivery O2 Flow Rate FiO2 08/04/19 14:00 98.1 78 14 128/66 (86) 96 08/04/19 06:00 Room Air I&O- Last 24 Hours up to 6 AM 08/04/19 06:00 Intake Total 2186 ml Output Total 1050 ml Balance 1136 ml MILAD GILBERT MD Aug 04, 2019 17:16
[2019-08-04 22:00] VITALS: BP 123/66
[2019-08-05] MEDS: LOPERAMIDE 2 MG CAPLET PO PRN (05:39)
[2019-08-05] MEDS: metroNIDAZOLE (FLAGYL) 500 MG TAB PO SCH ×4 (05:40→21:08)
[2019-08-05] MEDS: KCL 20MEQ in NS 1000ML 1,000 ML IV SCH ×2 (05:40→17:38)
[2019-08-05 06:00] VITALS: BP 121/68
[2019-08-05 06:57] LABS: BLOOD UREA NITROGEN 3 MG/DL (7-18); CALCIUM LEVEL 8.1 MG/DL (8.8-10.2); CARBON DIOXIDE LEVEL 27 MEQ/L (21-32); CHLORIDE LEVEL 108 MEQ/L (98-107); CREATININE FOR GFR 0.49 MG/DL (0.55-1.30); GLOMERULAR FILTRATION RATE > 60.0 (>45); GLUCOSE, FASTING 106 MG/DL (70-100); POTASSIUM SERUM 4.3 MEQ/L (3.5-5.1); SODIUM LEVEL 139 MEQ/L (136-145)
[2019-08-05 07:04] LABS: HEMATOCRIT 34.9 % (36.0-47.0); HEMOGLOBIN 10.8 g/dl (12.0-15.5); MEAN CORPUSCULAR HEMOGLOBIN 27.4 pg (27.0-33.0); MEAN CORPUSCULAR HGB CONC 30.9 g/dl (32.0-36.5); MEAN CORPUSCULAR VOLUME 88.6 fl (80.0-96.0); PLATELET COUNT, AUTOMATED 445 10^3/uL (150-450); RED BLOOD COUNT 3.94 10^6/uL (4.00-5.40); WHITE BLOOD COUNT 7.6 10^3/uL (4.0-10.0)
[2019-08-05] MEDS: CEFUROXIME 500 MG TAB PO SCH ×3 (09:00→21:00)
[2019-08-05] MEDS: SERTRALINE HCL 25 MG TABLET PO SCH (09:08)
[2019-08-05] MEDS: FERROUS SULFATE 325MG TAB PO SCH (09:08)
[2019-08-05] MEDS: HumaLOG INSULIN (NovoLOG) PER UNIT SC SCH ×4 (09:08→21:00)
[2019-08-05] MEDS: BOUDREAUX'S BUTT PASTE TOP SCH ×2 (09:09→21:09)
[2019-08-05] MEDS: ONDANSETRON 4MG/2ML VIAL IV PRN ×2 (10:48→21:53)
--- NOTE | 2019-08-05 12:05 | IPNPDOC ---
Text Note Date of Service The patient was seen on 08/05/19. NOTE Subjective: -Persistent diarrhea -Denies abdominal pain -No other issues overnight Objective: General exam: frail and ill appearing elderly woman, NAD HEENT: NCAT, EOMI, neck supple, no JVD, MMM Cardiac: RRR, normal S1 & S2, no murmurs Respiratory: CTAB, good air exchange, no w/r/r Abdomen: soft, ND, normoactive bowel sounds, nontender abdomen Extremity: 2+ radial pulses, no edema or calf tenderness Skin: [place], warm, dry, no visible rash Neuro: normal speech, weak with 4/5 strength throughout. LABORATORY DATA: WBC 7.6 hgb 10.8 platelets 445 k 4.3 Cr 0.49 Hep B and C negative Pending quant gold ASSESSMENT: 64-year-old W with Crohn's disease not on treatment, initially presented to [facility] due to right lower quadrant abdominal pain that did not improve with Cipro and Flagyl for [address] noted free air in the mesenteric fat with concern for perforated viscus and transferred for surgical evaluation and after evaluation of the imaging and examination, Dr. Heranndez recommended medical management with no indications for surgical intervention at this time. Instead he recommended evaluation by GI as she is not on any Crohn's treatment at this time with clearly ongoing inflammation and referral to a colorectal surgeon in the future and is under evaluation by Dr. Miles for immunomodulatory agents with pending quant gold before initiation. In the meantime, her pain appears to have resolved and remains on empiric ceftin/flagyl but has persistent diarrhea. RLQ abdominal pain: pain has resolved, with persistent diarrhea and nausea - Presented with worsening pain over despite 2d of Cipro/flagyl, now resolved on zosyn. 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 Hernandez, will medically manage and consulted Dr. Milse for Crohn's flare treatment, pending hepB and TB testing before likely initiation of immunomodulatory therapy. - Pt otherwise hemodynamically stable, afebrile, no leukocytosis, negative GI panel however, with persistent diarrhea - Continue IV fluids and ceftin/flagyl - Now on low residue diet - Given the significant diarrhea with negative GI panel - PRN zofran for nausea Chronic meds: DM: hold metformin and continue SSI, FSBG AC/HS, hypoglycemia protocol GERD: continue PPI Anemia: continue Fe sulfate DVT prophylaxis: mechanical CODE STATUS: unable to obtain directly from pt given her baseline mentation; MOLST sent along with pt on transfer is filled for DNR/DNI, also noted in notes in [place] hospital form, with son as HCP per report. DISPOSITION: ongoing evaluation by GI for Crohn's treatment with ongoing medical management VS,Fishbone, I+O VS, Fishbone, I+O Laboratory Tests 08/05/19 06:22 Vital Signs Date Time Temp Pulse Resp B/P (MAP) Pulse Ox O2 Delivery O2 Flow Rate FiO2 08/05/19 06:00 97.1 79 18 121/68 (85) 96 Room Air I&O- Last 24 Hours up to 6 AM 08/05/19 06:00 Intake Total 1750 ml Output Total 1800 ml Balance -50 ml MILAD GILBERT MD Aug 05, 2019 09:10
[2019-08-05 14:00] VITALS: BP 119/70
[2019-08-05 22:00] VITALS: BP 121/77
[2019-08-06] MEDS: metroNIDAZOLE (FLAGYL) 500 MG TAB PO SCH ×3 (05:19→20:19)
[2019-08-06] MEDS: KCL 20MEQ in NS 1000ML 1,000 ML IV SCH ×2 (05:46→18:02)
[2019-08-06 06:00] VITALS: BP 119/67
[2019-08-06] MEDS: HumaLOG INSULIN (NovoLOG) PER UNIT SC SCH ×4 (07:24→20:23)
[2019-08-06] MEDS: CEFUROXIME 500 MG TAB PO SCH ×3 (08:41→20:19)
[2019-08-06] MEDS: FERROUS SULFATE 325MG TAB PO SCH ×2 (08:41→08:55)
[2019-08-06] MEDS: SERTRALINE HCL 25 MG TABLET PO SCH (08:41)
[2019-08-06] MEDS: LOPERAMIDE 2 MG CAPLET PO PRN ×3 (08:41→20:26)
[2019-08-06] MEDS: ONDANSETRON 4MG/2ML VIAL IV PRN (08:41)
[2019-08-06] MEDS: BOUDREAUX'S BUTT PASTE TOP SCH ×2 (08:41→20:23)
[2019-08-06] MEDS ORDERED: predniSONE 50 MG TAB PO SCH (12:00)
[2019-08-06] MEDS: predniSONE 10 MG TAB PO SCH ×2 (13:00→13:08)
[2019-08-06 14:00] VITALS: BP 108/71
--- NOTE | 2019-08-06 16:17 | IPNPDOC ---
Text Note Date of Service The patient was seen on 08/06/19. NOTE Subjective: -Persistent diarrhea -Denies abdominal pain -No other issues overnight -Has been refusing abx and now prednisone, discussed that these medications are what will influence her getting better and leaving the hospital. Agreed to have crushable meds be crushed and if liquids are possible, will pursue. Objective: General exam: frail and ill appearing elderly woman, NAD HEENT: NCAT, EOMI, neck supple, no JVD, MMM Cardiac: RRR, normal S1 & S2, no murmurs Respiratory: CTAB, good air exchange, no w/r/r Abdomen: soft, ND, normoactive bowel sounds, nontender abdomen Extremity: 2+ radial pulses, no edema or calf tenderness Skin: [place], warm, dry, no visible rash Neuro: normal speech, weak with 4/5 strength throughout. LABORATORY DATA: reviewed Stable anemia. BMP wnl Hep B and C negative Pending quant gold ASSESSMENT: 64-year-old W with Crohn's disease not on treatment, initially presented to [facility] due to right lower quadrant abdominal pain that did not improve with Cipro and Flagyl for [address] noted free air in the mesenteric fat with concern for perforated viscus and transferred for surgical evaluation and after evaluation of the imaging and examination, Dr. Hernandez recommended medical management with no indications for surgical intervention at this time. Instead he recommended evaluation by GI as she is not on any Crohn's treatment at this time with clearly ongoing inflammation and referral to a colorectal surgeon in the future.Was evaluated by Dr. Miles for immunomodulatory agents with pending quant gold and decision made to restart Entyvio that he will start outpatient. In the meantime will bridge her with star ting prednisone for her ongoing flare that will be tapered and she will started on Entyvio in the outpatient setting. RLQ abdominal pain: pain has resolved, with persistent diarrhea and nausea - Presented with worsening pain over despite 2d of Cipro/flagyl, now resolved on zosyn. 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 Hernandez, will medically manage and consulted Dr. Kailyn moss for Crohn's flare treatment, pending TB testing before eventual initiation of Entyvio and will for now treat with prednisone 50 daily with weekly taper by 10mg until she is on 10mg at which time she will be started on Entyvio in the outpatient setting. - Pt otherwise hemodynamically stable, afebrile, no leukocytosis, negative GI panel however, with persistent diarrhea - Continue IV fluids, dc ceftin/flagyl and escalate loperamide to 4mgQ6H - Continue low residue diet - Given the significant diarrhea with negative GI panel - PRN zofran for nausea Chronic meds: DM: hold metformin and continue SSI, FSBG AC/HS, hypoglycemia protocol GERD: continue PPI Anemia: continue Fe sulfate DVT prophylaxis: mechanical CODE STATUS: unable to obtain directly from pt given her baseline mentation; MOLST sent along with pt on transfer is filled for DNR/DNI, also noted in notes in [place] hospital form, with son as HCP per report. DISPOSITION: Pending diarrhea improvement, starting steroids today with ongoing medical management. Medsurg VS,Fishbone, I+O VS, Fishbone, I+O Vital Signs Date Time Temp Pulse Resp B/P (MAP) Pulse Ox O2 Delivery O2 Flow Rate FiO2 08/06/19 06:00 97.9 81 16 119/67 (84) 95 Room Air I&O- Last 24 Hours up to 6 AM 08/06/19 06:00 Intake Total 3260 ml Output Total 1025 ml Balance 2235 ml MILAD GILBERT MD Aug 06, 2019 16:17
[2019-08-06 22:00] VITALS: BP 113/72
[2019-08-07] MEDS: metroNIDAZOLE (FLAGYL) 500 MG TAB PO SCH (05:38)
[2019-08-07 06:00] VITALS: BP 114/65
[2019-08-07] MEDS: KCL 20MEQ in NS 1000ML 1,000 ML IV SCH (06:32)
[2019-08-07] MEDS: HumaLOG INSULIN (NovoLOG) PER UNIT SC SCH ×2 (07:25→12:00)
[2019-08-07] MEDS ORDERED: METOCLOPRAMIDE HCL LIQUID 10 MG/10 ML UDC PO SCH (08:30)
[2019-08-07] MEDS: predniSONE 10 MG TAB PO SCH ×2 (09:50→12:00)
[2019-08-07] MEDS: BOUDREAUX'S BUTT PASTE TOP SCH (09:50)
[2019-08-07] MEDS: SERTRALINE HCL 25 MG TABLET PO SCH ×2 (09:50→11:28)
[2019-08-07] MEDS: CIPROFLOXACIN 500MG TABLET PO SCH ×2 (09:50→11:28)
[2019-08-07] MEDS: FERROUS SULFATE 325MG TAB PO SCH ×2 (09:50→11:28)
[2019-08-07] MEDS ORDERED: PRED10TA2 PO (11:28)
[2019-08-07] MEDS ORDERED: ANTI2TAB16 PO (11:28)
--- NOTE | 2019-08-07 18:33 | DS.PDOC ---
Discharge Summary General Date of Admission Jul 31, 2019 at 01:05 Date of Discharge 08/07/2019 Attending Physician: MILAD GILBERT MD Specialist/Consultants Involve: ARIELLE DENT MD Specialist/Consultants Involve Dr. Hernandez Discharge Summary PROCEDURES PERFORMED DURING STAY: None ADMITTING DIAGNOSES: 1. Crohn's flare with c/f perforated viscus DISCHARGE DIAGNOSES: 1. Acute on chronic Cronh's colitis 2. Dementias 3. Depression 4. DM 5. GERD 6. Iron deficiency anemia 7. Fatty liver COMPLICATIONS/CHIEF COMPLAINT: Crohns Colitis. HISTORY OF PRESENT ILLNESS: 64-year-old W with Crohn's disease not on treatment, initially presented to [facility] due to right lower quadrant abdominal pain that did not improve with Cipro and Flagyl for [address] noted free air in the mesenteric fat with concern for perforated viscus and transferred for surgical evaluation HOSPITAL COURSE: After evaluation of the imaging and examination, Dr. Hernandez recommended medical management with no indications for surgical intervention at this time. Imaging appeared stable from prior and her exam was benign. Instead he recommended evaluation by GI as she is not on any Crohn's treatment at this time with clearly ongoing inflammation and referral to a colorectal surgeon in the future. She evaluated by Dr. Dent for immunomodulatory agents with now pending quant gold and decision was made to eventually restart Entyvio that likely Dr. Lemus will restart outpatient. In the meantime we started bridging her with prednisone for her ongoing flare that will be tapered and she will started on Entyvio in the outpatient setting. She was started on pred 50mg QD with goal to taper by 10mg every 7 days until she gets to 10mg and discon tinue at which time she is likely to start the Entyvio. Her course was complicated by massive unremitting diarrhea and after she was determined negative for C.diff, she was started on loperamide and it was uptitrated until the diarrhea resolved. She was also given empiric antibiotics and will now be discharged on ciprofloxacin and refuses to take flagyl because it is too big a pill. DISCHARGE MEDICATIONS: Please see below. ALLERGIES: Please see below. PHYSICAL EXAMINATION ON DISCHARGE: VITAL SIGNS: Please see below. General exam: frail and ill appearing elderly woman, NAD HEENT: NCAT, EOMI, neck supple, no JVD, MMM Cardiac: RRR, normal S1 & S2, no murmurs Respiratory: CTAB, good air exchange, no w/r/r Abdomen: soft, ND, normoactive bowel sounds, nontender abdomen Extremity: 2+ radial pulses, no edema or calf tenderness Skin: [place], warm, dry, no visible rash Neuro: normal speech, weak with 4/5 strength throughout. LABORATORY DATA: Please see below. IMAGING: PROGNOSIS: Good with medication compliance ACTIVITY: As tolerated DIET: Consistent carb DISCHARGE PLAN: [facility] with pred taper, empiric cipro and follow up with Dr. Lemus DISPOSITION: [facility] DISCHARGE INSTRUCTIONS: 1. Please take your prednisone, ciprofloxacin as prescribed, and follow up with Dr. Lemus. ITEMS TO FOLLOWUP ON ON OUTPATIENT: 1. Crohn's disease 2. Needs a referral to a colorectal surgeon. GI aware DISCHARGE CONDITION: Stable TIME SPENT ON DISCHARGE: 46 minutes. Vital Signs/I&Os Vital Signs Date Time Temp Pulse Resp B/P (MAP) Pulse Ox O2 Delivery O2 Flow Rate FiO2 08/07/19 06:00 98.5 68 18 114/65 (81) 96 Room Air I&O- Last 24 Hours up to 6 AM 08/07/19 06:00 Intake Total 3860 ml Output Total 1300 ml Balance 2560 ml Laboratory Data Labs 24H Laboratory Tests 2 08/06/19 20:22: Bedside Glucose (Misc Panel) 155H 08/07/19 06:15: Bedside Glucose (Misc Panel) 100 08/07/19 07:24: Bedside Glucose (Misc Panel) 90 FSBS Laboratory Tests Test 08/06/19 20:22 08/07/19 06:15 08/07/19 07:24 Range/Units Bedside Glucose (Misc Panel) 155 100 90 80-115 MG/DL Microbiology Microbiology 08/02/19 Gastrointestinal Tract Panel (PCR) - Final, Complete 07/31/19 Blood Culture - Final, Complete NO GROWTH AFTER 5 DAYS 07/31/19 Blood Culture - Final, Complete NO GROWTH AFTER 5 DAYS Discharge Medications Scheduled Ciprofloxacin HCl (Cipro) 500 Mg Tablet, 500 M PO BID, (Reported) Ferrous Sulfate (Ferrous Sulfate) 325 Mg Tab, 325 MG PO DAILY, (Reported) Metformin HCl (Metformin HCl) 500 Mg Tab, 500 MG PO DAILY, (Reported) Omeprazole (Omeprazole) 40 Mg Cap, 40 MG PO BID, (Reported) Prednisone (Prednisone) 10 Mg Tablet, 50 MG PO DAILY 50mg for 7d, then 40mg for 7d, then 30mg for 7d, then 20mg for 7d, then 10mg for 7d Sertraline Hcl (Sertraline HCl) 25 Mg Tab, 25 MG PO DAILY, (Reported) Scheduled PRN Acetaminophen (Acetaminophen) 325 Mg Tablet, 650 MG PO Q8H PRN for PAIN / FEVER, (Reported) Bisacodyl (Bisacodyl) 10 Mg Supp.rect, 10 MG SC DAILY PRN for CONSTIPATION, (Reported) Loperamide HCl (Anti-Diarrheal) 2 Mg Tablet, 4 MG PO Q6HP PRN for DIARRHEA Magnesium Hydroxide (Milk of Magnesia) 400 Mg/5 Ml Oral.susp, 30 ML PO DAILY PRN for CONSTIPATION, (Reported) IF NO BM IN 3 DAYS, PROCEED TO SUPPOSITORY IF INEFFECTIVE Ondansetron HCl (Zofran) 4 Mg Tablet, 4 MG PO Q4H PRN for nausea/vomiting, (Reported) Allergies Coded Allergies: infliximab (Verified Allergy, Unknown, 02/24/19) lactose (Verified Adverse Reaction, Intermediate, N/V/D, 02/24/19) morphine (Verified Adverse Reaction, Intermediate, HALLUCINATIONS, 02/24/19) nizatidine (Verified Adverse Reaction, Mild, METABOLIC RXN, 02/24/19) MIALD GILBERT MD Aug 07, 2019 18:33
== END 2019-08-07 12:00 | DRG 386 ==
LOC: M ED 22:21 → M ED INP 07-31 01:05 → ENRESERV 07-31 01:48 → M MSPAV 07-31 02:25
PROVIDERS: ADMIT Internal Medicine; ATTEND Internal Medicine
DX: K50.113 Crohn's disease of large intestine with fistula (principal); N82.4 Other female intestinal-genital tract fistulae; E11.9 Type 2 diabetes mellitus without complications; Z87.820 Personal history of traumatic brain injury; F32.9 Major depressive disorder, single episode, unspecified; D50.9 Iron deficiency anemia, unspecified; F03.90 Unspecified dementia, unspecified severity, without behavioral disturbance, psychotic disturbance, mood disturbance, and anxiety; Z79.899 Other long term (current) drug therapy; Z88.5 Allergy status to narcotic agent; Z88.8 Allergy status to other drugs, medicaments and biological substances; E73.9 Lactose intolerance, unspecified; K21.9 Gastro-esophageal reflux disease without esophagitis; K76.0 Fatty (change of) liver, not elsewhere classified

== ENCOUNTER 2019-09-29 12:35 | Outpatient (CLI) | payer MEDICARE, MEDICAID ==
[~2019-09-29] VITALS: Ht 152.4 cm; Wt 51.3 kg
[~2019-09-29 12:35] MED LIST changes: +ACET1TAB55 PO; +BISA10SU27 PR; -DELZ400C PO; +DELZ400C5 PO; +MILKSUS3 PO; +PRED10TA2 PO; +ZOFR4TAB16 PO
[2019-09-29] MEDS ORDERED: VEDOLIZUMAB 300 MG in NS 250 ML IV ONE (12:45)
[2019-09-29 13:38] VITALS: BP 122/61
== END 2019-09-29 14:15 | disposition home or self-care (01) ==
LOC: M INFU 12:35
PROVIDERS: ATTEND Internal Medicine Gastroenterology
DX: K50.90 Crohn's disease, unspecified, without complications (principal); Z53.20 Procedure and treatment not carried out because of patient's decision for unspecified reasons

== ENCOUNTER → 2020-05-20 | Outpatient (REF) | LOC: M LAB REF 11:20 | PROVIDERS: ATTEND Physician Assistant Medical | DX: Z79.899 Other long term (current) drug therapy (principal) ==